=== PATIENT | female | born 1950 | race Caucasian/White ===

== ENCOUNTER → 2017-01-24 | Outpatient (CLI) | payer MEDICARE, BC ==
[~2017-01-24] MED LIST: ALPR.25T; ALPR0.5T3 PO; AMLO5TAB2 PO; ASEN5TAB7 SL; ASP81TEC PO; CETI-176 PO; CETI10TA17; CLC500CT PO; DESV50TA PO; DIVA-20 PO; DIVA250T2 PO; DVL500TSR; ERGO400C PO; ESTR0.3T PO; FLUT50DI; FOLI1TAB6 PO; GFN600TCR PO; GLUC1TAB60; LAMO150T3 PO; LEVO5TAB2; METO25TA PO; MTP25TSR; OMG1KC; OMG1KC PO; PRED5DRO2I OP
--- NOTE | 2017-01-24 14:57 | Diagnostic Imaging Report ---
INDICATION: Followup stage III chronic kidney disease, history of partial left nephrectomy for benign mass. COMPARISON: 08/13/2013. DISCUSSION: The kidneys are echogenic, consistent with chronic medical renal disease, stable. A 9 mm cyst noted within the left kidney, benign. No suspicious renal mass identified. The left kidney is small in size measuring 7.7 cm, consistent with previous partial nephrectomy. The right kidney is normal in size measuring 9.7 cm. No hydronephrosis or shadowing stone identified. The urinary bladder appears within normal limits. The bilateral ureteral jets were visualized. IMPRESSION: 1. Echogenic kidneys. Dictated by: Dictated on workstation # [id number]
== END ==
LOC: RAD 12:51
PROVIDERS: ATTEND Internal Medicine Nephrology
DX: N18.3 Chronic kidney disease, stage 3 (moderate) (principal)
CPT/HCPCS: 76770

== ENCOUNTER → 2017-10-04 | Outpatient (CLI) | payer MEDICARE, BC | LOC: RAD 13:36 | PROVIDERS: ATTEND Family Medicine | DX: Z12.31 Encounter for screening mammogram for malignant neoplasm of breast (principal) | CPT/HCPCS: 77067 ==

== ENCOUNTER → 2018-10-05 | Outpatient (CLI) | payer MEDICARE, BC ==
--- NOTE | 2018-10-05 18:16 | Diagnostic Imaging Report ---
INDICATION: Routine screening. COMPARISON: Comparison is made with prior mammograms from 10/04/2017 and 09/21/2016. TECHNIQUE: 2D and 3D bilateral screening mammography was performed with computer-aided detection (CAD) system. FINDINGS: Both breasts are heterogeneously dense, limiting the sensitivity of mammography. There are benign calcifications bilaterally. No mass or malignant appearing microcalcifications are seen. The axillae are unremarkable. IMPRESSION: No mammographic features suspicious for malignancy are identified. ACR BI-RADS Category 2: Benign findings. Result letter will be mailed to the patient. Note: At least 10% of breast cancer is not imaged by mammography. Dictated by: Dictated on workstation # [id number]
== END ==
LOC: RAD 13:14
PROVIDERS: ATTEND Nurse Practitioner Family
DX: Z12.31 Encounter for screening mammogram for malignant neoplasm of breast (principal)
CPT/HCPCS: 77067

== ENCOUNTER 2019-07-27 05:39 | Outpatient (CLI) | payer MEDICARE, BC ==
[~2019-07-27] VITALS: Ht 167.6 cm; Wt 68.0 kg
[2019-07-27] MEDS ORDERED: CHOL200059 PO (13:19)
[2019-07-27] MEDS ORDERED: GLUC100016 PO (13:19)
[2019-07-27] MEDS ORDERED: PRED-398 PO (13:19)
[2019-07-27] MEDS ORDERED: FOLI-74 PO (13:19)
[2019-07-27] MEDS ORDERED: ASCO500C17 PO (13:19)
[2019-07-27] MEDS ORDERED: DIVA250T PO (13:19)
[2019-07-27] MEDS ORDERED: ROSU10TA22 PO (13:19)
[2019-07-27] MEDS ORDERED: UBID100C17 PO (13:19)
[2019-07-27] MEDS ORDERED: LACT1CAP72 PO (13:19)
[2019-07-27] MEDS ORDERED: PRED2TAB PO (13:19)
[2019-07-27] MEDS ORDERED: METO-387 PO (13:19)
[2019-07-27] MEDS ORDERED: FEXO180T84 PO (13:19)
[2019-07-27] MEDS ORDERED: CYCL5TAB PO (13:19)
== END 2019-07-27 13:20 | disposition home or self-care (01) ==
LOC: PREOP 05:39
PROVIDERS: ATTEND Surgery
DX: Z01.818 Encounter for other preprocedural examination (principal)

== ENCOUNTER → 2019-09-26 | Outpatient (CLI) | payer MEDICARE, BC ==
[~2019-09-26] MED LIST changes: +ASCO500C17 PO; +CHOL200059 PO; +CYCL5TAB PO; +DIVA250T PO; +FEXO180T84 PO; +FOLI-74 PO; +GLUC100016 PO; +LACT1CAP72 PO; +METO-387 PO; +PRED-398 PO; +PRED2TAB PO; +ROSU10TA22 PO; +UBID100C17 PO
--- NOTE | 2019-09-26 18:41 | Diagnostic Imaging Report ---
EXAMINATION: Left knee radiographs, 3 views. COMPARISON: June 13, 2012. HISTORY: 68-year-old female, left knee pain. FINDINGS: The patellar tendon to patellar length ratio measures 1.40 which is within normal limits. There is severe patellofemoral compartmental joint space loss with osteophyte formation. There is no large left knee joint effusion. There is degenerative type and discopathy at the distal quadriceps tendon attachment. There is mild medial compartment joint space loss. There is no identified acute fracture. IMPRESSION: Severe predominantly patellofemoral compartment osteoarthritis without knee joint effusion. Dictated by: Dictated on workstation # [id number]
== END ==
LOC: RAD 14:43
PROVIDERS: ATTEND Internal Medicine Rheumatology
DX: M17.0 Bilateral primary osteoarthritis of knee (principal)
CPT/HCPCS: 73562

== ENCOUNTER → 2019-10-09 | Outpatient (CLI) | payer MEDICARE, BC ==
--- NOTE | 2019-10-09 14:26 | Diagnostic Imaging Report ---
INDICATION: Routine screening. COMPARISON: Comparison is made with prior mammograms from 10/05/2018 and 10/04/2017. TECHNIQUE: 2-D and 3-D bilateral screening mammography was performed. The current study was also evaluated with a Computer Aided Detection (CAD) system. 3-D tomosynthesis was also performed and reviewed. FINDINGS: Both breasts are heterogeneously dense, limiting the sensitivity of mammography. Benign calcifications are identified bilaterally. No mass or malignant-appearing microcalcifications are seen. Axillae are unremarkable. IMPRESSION: No mammographic features suspicious for malignancy are identified. ACR BI-RADS Category 2: Benign findings. Result letter will be mailed to the patient. Note: At least 10% of breast cancer is not imaged by mammography. Dictated by: Dictated on workstation # [id number]
== END ==
LOC: RAD 12:46
PROVIDERS: ATTEND Nurse Practitioner Family
DX: Z12.31 Encounter for screening mammogram for malignant neoplasm of breast (principal)
CPT/HCPCS: 77067

== ENCOUNTER 2019-12-25 05:51 | Outpatient (CLI) | payer MEDICARE, BC ==
[~2019-12-25] VITALS: Ht 167 cm; Wt 69.0 kg
[~2019-12-25 05:51] MED LIST changes: -METO-387 PO; +MTP25TSR PO
[2019-12-25] MEDS ORDERED: METO-333 PO (15:13)
[2019-12-25] MEDS ORDERED: PRD1T PO (15:13)
[2019-12-25] MEDS ORDERED: [UNRECOGNIZED DRUG - CODE] PO (15:13)
== END 2019-12-25 15:18 | disposition home or self-care (01) ==
LOC: PREOP 05:51
PROVIDERS: ATTEND Specialist
DX: Z01.818 Encounter for other preprocedural examination (principal)

== ENCOUNTER 2019-12-28 09:58 | Day surgery (SDC) | payer MEDICARE, BC ==
[~2019-12-28] VITALS: Ht 167 cm; Wt 69.0 kg
[~2019-12-28 09:58] MED LIST changes: +METO-333 PO; +PRD1T PO; +[UNRECOGNIZED DRUG - CODE] PO
[2019-12-28 10:25] VITALS: BP 143/79
[2019-12-28] MEDS: TETRACAINE 0.5% OPHTH SOLN 4 ML BTL (SINGLE DOSE ONLY) OU PRN ×4 (10:27→10:52)
[2019-12-28] MEDS: TROPICAMIDE 1% OPH SOLN (MYDRIACYL) 15 ML BTL OU PRN ×2 (10:35→10:52)
--- NOTE | 2019-12-28 10:43 | Ophthalmologist Pre-Op Note ---
Pre-Operative Progress Note H&P Reviewed The H&P was reviewed, patient examined and no changes noted. Date H&P Reviewed: Dec 28, 2019 Time H&P Reviewed: 10:43 Pre-Op Dx Secondary Cataract, Right Eye ESTEBAN SANTOS MD Dec 28, 2019 10:43
[2019-12-28] MEDS: PHENYLEPHRINE 10% OPHTH (NEO-SYN) 5 ML BTL OU PRN ×2 (10:45→10:52)
[2019-12-28 11:40] VITALS: BP 143/79
--- NOTE | 2019-12-28 11:44 | Ophthalmology Operative Report ---
YAG Capsulotomy PREOPERATIVE DIAGNOSIS: Secondary Cataract Right Eye POSTOPERATIVE DIAGNOSIS: Secondary Cataract Right Eye PROCEDURE: YAG Capsulotomy, right eye SURGEON: Colby Santos ANESTHESIA: Topical anesthesia COMPLICATIONS: None ESTIMATED BLOOD LOSS: Minimal DESCRIPTION OF PROCEDURE: After proper informed consent was obtained, the patient's, a 69 female, right eye received one drop of Tropicamide and one drop of Tetracaine. The patient was then placed at the YAG laser and using a power of [ 4.2] millijoules and [ 29] bursts were used to fashion a central capsulotomy. The patient tolerated the procedure well without complications. COLBY SANTOS MD Dec 28, 2019 11:44
== END 2019-12-28 11:40 | disposition home or self-care (01) ==
LOC: SDC 09:58
PROVIDERS: ATTEND Specialist
DX: H26.491 Other secondary cataract, right eye (principal); M19.90 Unspecified osteoarthritis, unspecified site; F31.9 Bipolar disorder, unspecified; E78.00 Pure hypercholesterolemia, unspecified; Z90.710 Acquired absence of both cervix and uterus; Z80.1 Family history of malignant neoplasm of trachea, bronchus and lung

== ENCOUNTER → 2020-10-31 | Outpatient (CLI) | payer MEDICARE, BC ==
--- NOTE | 2020-10-31 16:30 | Diagnostic Imaging Report ---
INDICATION: Routine screening. COMPARISON is made with prior mammograms from 10/09/2019 and 10/05/2018. 2-D and 3-D bilateral screening mammography was performed with CAD. Both breasts are heterogeneously dense, limiting the sensitivity of mammography. There are benign calcifications bilaterally. Benign nodule in the axillary tail on the left appears stable. No new mass or malignant appearing microcalcifications are seen. Axillae are unremarkable. IMPRESSION: BI-RADS Category 2 No mammographic features suspicious for malignancy are identified. ACR BI-RADS Category 2: Benign findings. Result letter will be mailed to the patient. Note: At least 10% of breast cancer is not imaged by mammography. Dictated by: Dictated on workstation # [id number]
== END ==
LOC: RAD 14:59
PROVIDERS: ATTEND Nurse Practitioner Family
DX: Z12.31 Encounter for screening mammogram for malignant neoplasm of breast (principal)
CPT/HCPCS: 77063; 77067

== ENCOUNTER → 2021-03-23 | Outpatient (CLI) | payer MEDICARE, BC ==
--- NOTE | 2021-03-23 19:35 | Diagnostic Imaging Report ---
INDICATION: Left leg pain and swelling post injury AP and lateral views of the left tibia and fibula are performed. No fracture or acute bony abnormality seen. IMPRESSION: Negative left tibia and fibula. Dictated by: Dictated on workstation # [id number]
--- NOTE | 2021-03-23 19:36 | Diagnostic Imaging Report ---
INDICATION: Left foot pain and swelling AP, oblique, and lateral views of the left foot are obtained. No fracture or acute bony abnormality seen. There is plantar and posterior calcaneal spurring. Joint spaces appear unremarkable. IMPRESSION: No acute abnormality of the left foot. Dictated by: Dictated on workstation # [id number]
== END ==
LOC: RAD 16:32
PROVIDERS: ATTEND Surgery
DX: M79.672 Pain in left foot (principal); M79.89 Other specified soft tissue disorders; Z87.828 Personal history of other (healed) physical injury and trauma; Z91.81 History of falling
CPT/HCPCS: 73590; 73630

== ENCOUNTER → 2021-04-28 | Outpatient (CLI) | payer MEDICARE, BC ==
--- NOTE | 2021-04-28 17:56 | Diagnostic Imaging Report ---
CLINICAL INDICATION: Patient with history of tremors. EXAM: MRI of the brain performed without IV contrast. Sequences include axial DWI, ADC map, axial T2, axial FLAIR, axial T1, axial gradient echo, and sagittal T1. COMPARISON: Head CT without contrast dated 04/19/2012. FINDINGS: There is no evidence of acute cerebral infarct, intracranial hemorrhage, or gross mass effect. There is progression of diffuse brain parenchymal volume loss with the frontal and parietal regions affected the most. Stable small chronic infarcts involving the right cerebellum and left occipital lobe. There is interval development of small infarct changes involving the right frontal lobe periventricular region laterally and high posterior left frontal lobe. There is interval progression of focal, patchy, and confluent areas of high T2 signal white matter changes involving both cerebral hemispheres and debra, likely representing chronic small vessel ischemic disease. There is normal clemens-white matter distinction. There is no significant midline shift or herniation. The sit[place] of [place] vascular structures show no gross abnormality as visualized. The pituitary gland, sella, and suprasellar regions are unremarkable as visualized. There is no evidence of hydrocephalus. The basal cisterns are unremarkable. The skull, extracranial soft tissue, and orbits are unremarkable. The paranasal sinuses are unremarkable. Temporal bones show no significant abnormality. IMPRESSION: 1: There is no evidence of acute intracranial process. 2: Interval progression of small chronic infarct changes and chronic ischemic disease and leukoaraiosis. 3: Stable small chronic infarcts involving the right cerebellum and left occipital lobe. Dictated by: Dictated on workstation # [id number]
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
== END ==
LOC: RAD 13:27
PROVIDERS: ATTEND Family Medicine
DX: I63.431 Cerebral infarction due to embolism of right posterior cerebral artery (principal); M50.30 Other cervical disc degeneration, unspecified cervical region; I63.532 Cerebral infarction due to unspecified occlusion or stenosis of left posterior cerebral artery
CPT/HCPCS: 70551; 72141

== ENCOUNTER → 2021-05-18 | Outpatient (CLI) | payer MEDICARE, BC ==
--- NOTE | 2021-05-18 14:08 | Diagnostic Imaging Report ---
PROCEDURE: US carotid duplex, bilateral. TECHNIQUE: Multiple real-time grayscale images were obtained over the carotid arteries in various projections, bilaterally. Additional spectral analysis and color Doppler duplex images were also obtained. INDICATION: Cerebellar infarct. FINDINGS: There is mild atherosclerotic plaquing within the carotid bulbs bilaterally. Color Doppler imaging shows antegrade flow through both carotid arteries and the vertebral arteries. Waveforms and peak velocities are symmetrical and normal. Carotid ratios are normal. IMPRESSION: Mild atherosclerotic changes with no hemodynamic disease. The vertebral arteries are symmetrical and antegrade. Parameters based on the consensus panel Weinstein-Scale and Doppler ultrasound criteria published September 2003, Radiology, Volume 229. DOPPLER (peak systolic velocity M/S Right Left CCA .60 .80 ICA Proximal .47 .80 ICA Mid .60 .42 ICA Distal .70 .55 RATIO 1.2 1.0 ECA .92 .59 VERT .46 .54 Dictated by: Dictated on workstation # [id number]
== END ==
LOC: RAD 09:25
PROVIDERS: ATTEND Nurse Practitioner Family
DX: I65.23 Occlusion and stenosis of bilateral carotid arteries (principal); I63.9 Cerebral infarction, unspecified; E78.5 Hyperlipidemia, unspecified
CPT/HCPCS: 93880

== ENCOUNTER 2021-06-14 22:06 | Observation (INO) | payer MEDICARE, BC ==
[~2021-06-14] VITALS: Ht 162.6 cm; Wt 70.4 kg
[2021-06-14] MEDS ORDERED: NITROGLYCERIN 2% OINT 1 GM UNIT DOSE PACKET TOP STA (22:15)
[2021-06-14 22:22] LABS: BASOPHILS % (AUTO) 0 % (0-10); EOSINOPHILS % (AUTO) 0 % (0-10); HEMATOCRIT 41 % (35-52); HEMOGLOBIN 13.5 g/dL (11.5-16.0); LYMPHOCYTES # (AUTO) 2.7 10^3/uL (1.0-4.0); LYMPHOCYTES % (AUTO) 21 % (12-44); MEAN CORPUSCULAR HEMOGLOBIN 31 pg (25-34); MEAN CORPUSCULAR HGB CONC 33 g/dL (32-36); MEAN CORPUSCULAR VOLUME 95 fL (80-99); MEAN PLATELET VOLUME 11.3 fL (9.0-12.2); MONOCYTES # (AUTO) 0.8 10^3/uL (0.0-1.0); MONOCYTES % (AUTO) 6 % (0-12); NEUTROPHILS # (AUTO) 9.2 10^3/uL (1.8-7.8); NEUTROPHILS % (AUTO) 71 % (42-75); PLATELET COUNT 204 10^3/uL (130-400); WHITE BLOOD COUNT 12.9 10^3/uL (4.3-11.0)
[2021-06-14 22:34] LABS: ALBUMIN 4.3 GM/DL (3.2-4.5); INR 0.9 (0.8-1.4); POTASSIUM 4.1 MMOL/L (3.6-5.0); PROTHROMBIN TIME PATIENT 12.8 SEC (12.2-14.7)
[2021-06-14 22:36] LABS: CALCIUM 9.4 MG/DL (8.5-10.1)
[2021-06-14 22:39] LABS: BILIRUBIN,TOTAL 0.3 MG/DL (0.1-1.0)
[2021-06-14 22:40] LABS: CREATININE SERUM 1.82 MG/DL (0.60-1.30)
[2021-06-14 22:44] LABS: MAGNESIUM 2.2 MG/DL (1.6-2.4)
[2021-06-14 22:46] LABS: BILIRUBIN,URINE NEGATIVE (NEGATIVE); CLARITY,URINE CLEAR; COLOR,URINE YELLOW; GLUCOSE, URINE (UA) NEGATIVE (NEGATIVE); KETONES,URINE NEGATIVE (NEGATIVE); LEUKOCYTE ESTERASE ,URINE NEGATIVE (NEGATIVE); NITRITE,URINE NEGATIVE (NEGATIVE); PROTEIN,URINE TRACE (NEGATIVE)
[2021-06-14 22:52] LABS: BACTERIA,URINE NEGATIVE /HPF; RBC,URINE 0-2 /HPF; WBC,URINE 0-2 /HPF
[2021-06-14] MEDS ORDERED: meTOprolol SUCCINATE 100 MG (TOPROL XL) TAB PO ONE (23:15)
[2021-06-15] VITALS (14 sets, daily range): BP systolic 150–206; BP diastolic 73–106
[2021-06-15] MEDS ORDERED: hydrALAZINE (APESOLINE) 20 MG/ML VIAL IV ONE (03:30)
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
[2021-06-15] MEDS ORDERED: NS IV 1000 ML 1,000 ML IV SCH (05:15)
--- NOTE | 2021-06-15 05:44 | Diagnostic Imaging Report ---
Clinical indication: Patient with altered mental status and neuro deficit. Patient has history of previous infarcts. Exam: Axial CT scan of the brain without IV contrast with coronal and sagittal reformatted images. Auto Exposure Controls were utilized during the CT exam to meet ALARA standards for radiation dose reduction. Comparison: MRI of the brain without contrast dated 04/28/2021. Findings: There is no evidence of acute cerebral infarct, intracranial hemorrhage, or gross mass effect. There is no significant change to the brain parenchymal volume loss. Again noted small chronic infarcts involving the right basal ganglia region, left occipital lobe, right cerebellar hemisphere, and posterior left frontal lobe. There is patchy and confluent areas of low-attenuation white matter changes throughout both cerebral hemispheres, likely representing chronic small vessel ischemic disease and leukoaraiosis. There is normal clemens-white matter distinction. There is no significant midline shift or herniation. There is no evidence of hydrocephalus. The basal cisterns are unremarkable. The skull, extracranial soft tissue, and orbits are unremarkable. The paranasal sinuses are unremarkable. Temporal bones show no significant abnormality. Impression: Stable CT scan of the brain with no evidence of interval acute intracranial process. I agree with [facility] report Dictated by: Dictated on workstation # [id number]
--- NOTE | 2021-06-15 06:05 | Diagnostic Imaging Report ---
Clinical indication: Patient with chest pain and hypertension. Exam: Portable chest x-ray upright view. Comparisons: Chest x-ray dated 08/25/2009. Findings: There is interval development of mild airspace opacities in left lung base and small left pleural effusion. Remainder of the lungs are clear. There is no pneumothorax. Cardiac silhouette and pulmonary vasculature is within normal limits. There is displaced fractures involving the lateral aspect of the left T3 and T4 ribs which have developed in the interim and are of unknown age. IMPRESSION: 1: There is development of left lung base atelectasis versus infiltrate and small left pleural effusion. 2: There is interval development of fractures involving the lateral aspect of left T3 and T4 ribs of unknown age. Dictated by: Dictated on workstation # [id number]
--- NOTE | 2021-06-15 07:20 | Diagnostic Imaging Report ---
PROCEDURE: CT chest, abdomen, and pelvis without contrast. TECHNIQUE: Multiple contiguous axial images were obtained through the chest, abdomen, and pelvis without the use of intravenous contrast. Auto Exposure Controls were utilized during the CT exam to meet ALARA standards for radiation dose reduction. INDICATION: Chest pain, hypertension COMPARISON: CT abdomen and pelvis from 01/10/2013 FINDINGS: CHEST: No endoluminal nodule within the trachea. No pulmonary mass or consolidation. There are a few sites of bandlike atelectasis within the bilateral lower lobes. No pleural effusion or pneumothorax. Thyroid is normal. No supraclavicular or axillary lymphadenopathy. No mediastinal or hilar lymphadenopathy. No pericardial effusion. Normal caliber thoracic aorta. No features of mediastinal hemorrhage. Assessment for dissection or other acute aortic pathology is limited without IV contrast. No concerning focal osseous lesions. ABDOMEN AND PELVIS: No free intraperitoneal air or fluid. Assessment of abdominal viscera is suboptimal without IV contrast. Allowing for this, the unenhanced liver, gallbladder, spleen and pancreas are normal. No adrenal mass. Postoperative changes of partial nephrectomy on the left. No solid renal mass on either side by noncontrast imaging. No renal or ureteral stones. Urinary bladder is decompressed by Freeman catheter and therefore limited in assessment. Status post hysterectomy. No adnexal mass. Stomach is decompressed, limiting assessment. No definite loops of bowel indicate bowel obstruction. No pericolonic inflammatory change. Sigmoid colon diverticulosis. Appendix is normal. No abdominal or pelvic lymphadenopathy. No retroperitoneal hematoma. Small fat-containing umbilical hernia. No concerning focal osseous lesions. IMPRESSION: 1. No acute abnormality in the chest, abdomen or pelvis. 2. Findings are in agreement with the preliminary report. Dictated by: Dictated on workstation # [id number]
[2021-06-15] MEDS ORDERED: CATHETER FLUSH 10 ML SYR IV PRN (07:30)
[2021-06-15] MEDS ORDERED: NITROGLYCERIN 0.4 MG SL TABS BTL 25'S SL PRN (07:30)
[2021-06-15] MEDS ORDERED: ONDANSETRON 4 MG/2 ML (SDV) Z0FRAN IVP PRN (07:30)
[2021-06-15] MEDS ORDERED: morphine INJ 4 MG/ML 1 ML (VIAL/SYRINGE) IV PRN (07:30)
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
[2021-06-15] MEDS: NS IV 1000 ML 1,000 ML IV SCH (09:23)
--- NOTE | 2021-06-15 10:37 | Consultation-Cardiology ---
HPI-Cardiology Cardiology Consultation: Date of Consultation 06/15/2021 Date of Admission 06/15/2021 Attending Physician Ryan Hermosillo MD Admitting Physician Silke Womack MD Consulting Physician NIXON TAVAREZ JR, MD HPI: Time Seen by a Provider: 08:50 Chief Complaint: Reason for consultation: Chest pain. I had the pleasure of seeing Masha on the medical/surgical unit this morning. She has a history of hypertension, hyperlipidemia, previous cerebral infarcts noted on an MRI of the brain, stage III chronic kidney disease, polymyalgia rheumatica, and bipolar disorder among a few other less clinically significant issues. She has been having chest discomfort for at least the past several months. She cannot recall exactly when this started. She states that she will get a tightness in the left side of her chest. This will last anywhere from seconds up to minutes. Sometimes this will occur at night when she is going to sleep. She will fall asleep with chest discomfort and by the following morning, the discomfort will resolve. She denies any radiation or associated complaints. Nothing seems to bring this on. Nothing seems to make this better or worse. She had spoken to her primary care provider about the chest discomfort and was actually referred for an outpatient cardiology consultation. However, this morning the chest discomfort was more bothersome to the patient so she came to the emergency room for further evaluation. I was subsequently consulted for cardiology evaluation. She denies dyspnea on exertion, paroxysmal nocturnal dyspnea, orthopnea, or palpitations. She gets occasional lightheaded spells but denies any syncope. She had been getting some lower extremity edema but modified her diet and the edema resolved. She states she had been given Plavix earlier in the year but took this for less than a month because it caused more problems with her superficial ecchymoses. She does not smoke. Review of Systems-Cardiology Review of Systems Other comments Review of 10 organ systems is as per the history of present illness, otherwise negative. [id number]-[id number]-Omdsfm Hx Patient Social History Marrital Status: Smoking Status: Never a Smoker Have you traveled recently?: No Alcohol Use?: No Pt feels they are or have been: No Past Medical History PMH As described under Assessment. Family Medical History Family Medical History: The patient does not know of any family history of premature coronary artery disease. Allergies and Home Medications Allergies Coded Allergies: lorazepam (Verified Allergy, Mild, 12/25/19) cephalexin (Verified Allergy, Unknown, 12/25/19) sulfamethoxazole (Verified Allergy, Unknown, Rash, 12/25/19) trimethoprim (Verified Allergy, Unknown, Rash, 12/25/19) Home Medications Acetaminophen 500 Mg Tablet, 500-1,000 MG PO Q8H PRN for PAIN-MILD (1-4), (Reported) Last Action: Reviewed Ascorbic Acid 500 Mg Tablet, 500 MG PO BID, (Reported) Last Action: Reviewed Brimonidine Tartrate 5 Ml Drops, 1 DROPS OU BID, (Reported) Last Action: Reviewed Cholecalciferol (Vitamin D3) 25 Mcg Capsule, 50 MCG PO BID, (Reported) Last Action: Reviewed Cyclobenzaprine HCl 5 Mg Tablet, 5 MG PO BID PRN for MUSCLE SPASMS, (Reported) Last Action: Reviewed Divalproex Sodium 250 Mg Tab.er.24h, 750 MG PO HS, (Reported) TAKES 3 (250MG) TABS Last Action: Reviewed Fexofenadine HCl 180 Mg Tablet, 180 MG PO HS, (Reported) Last Action: Reviewed Glucos Sul 2Kcl/MSM/Chond/C/Mn 1 Each Capsule, 1 EACH PO BID, (Reported) Last Action: Reviewed Lactobacillus Acidophilus 1 Each Capsule, 1 EACH PO BID, (Reported) Last Action: Reviewed Metoprolol Tartrate 25 Mg Tablet, 50 MG PO BID, (Reported) TAKES 2 (25MG) TABS Last Action: Reviewed Mupirocin 22 Gm Oint...g., 1 APPLIC TP BID, (Reported) Last Action: Reviewed Mv-Mn/Folic Acid/Calcium/Vit K 1 Each Tablet, 1 EACH PO DAILY, (Reported) Last Action: Reviewed Prednisone 1 Mg Tab, 3 MG PO 1800, (Reported) TAKES 3 (1MG) TABS Last Action: Reviewed Rosuvastatin Calcium 10 Mg Tablet, 10 MG PO HS, (Reported) Last Action: Reviewed Patient Home Medication List Home Medication List Reviewed: Yes Exam Vital Signs Vital Signs Date Time Temp Pulse Resp B/P (MAP) Pulse Ox O2 Delivery O2 Flow Rate FiO2 06/15/21 09:51 97 Room Air 06/15/21 06:49 37.0 98 18 157/77 (152) Physical Exam General: Alert. No acute distress. Well nourished and appears stated age. Eye: Extraocular movements are intact. Conjunctivae are clear. There are no xanthelasma. HENT: Normocephalic. Atraumatic. Carotid pulsations 2/2 without bruits. Neck: Jugular venous pressure does not appear elevated. No thyromegaly appreciated. Respiratory: Lungs are clear to auscultation. Respirations are non-labored. Breath sounds are equal. Symmetrical chest wall expansion. Cardiovascular: Normal rate. Regular rhythm. No murmur. No gallop. Point of maximal impulse is not appear displaced. Good pulses equal in all extremities. No edema. Gastrointestinal: Soft. Normal bowel sounds. Skin: Skin turgor is normal. There is no pallor. She has diffuse ecchymoses on her upper and lower extremities bilaterally. Her skin appears very thin. Musculoskeletal: No kyphosis or scoliosis appreciated. Neurologic: Alert and oriented to person, place, time. Cranial nerves 3-12 appear grossly intact. The patient has good motor tone strength in the upper and lower extremities bilaterally. Psychiatric: Cooperative. Appropriate mood & affect. Labs Laboratory Tests Test 06/14/21 22:15 06/14/21 22:40 06/15/21 05:05 06/15/21 08:10 Range/Units White Blood Count 12.9 H 4.3-11.0 10^3/uL Red Blood Count 4.35 3.80-5.11 10^6/uL Hemoglobin 13.5 11.5-16.0 g/dL Hematocrit 41 35-52 % Mean Corpuscular Volume 95 80-99 fL Mean Corpuscular Hemoglobin 31 25-34 pg Mean Corpuscular Hemoglobin Concent 33 32-36 g/dL Red Cell Distribution Width 14.3 10.0-14.5 % Platelet Count 204 130-400 10^3/uL Mean Platelet Volume 11.3 9.0-12.2 fL Immature Granulocyte % (Auto) 1 % Neutrophils (%) (Auto) 71 42-75 % Lymphocytes (%) (Auto) 21 12-44 % Monocytes (%) (Auto) 6 0-12 % Eosinophils (%) (Auto) 0 0-10 % Basophils (%) (Auto) 0 0-10 % Neutrophils # (Auto) 9.2 H 1.8-7.8 10^3/uL Lymphocytes # (Auto) 2.7 1.0-4.0 10^3/uL Monocytes # (Auto) 0.8 0.0-1.0 10^3/uL Eosinophils # (Auto) 0.0 0.0-0.3 10^3/uL Basophils # (Auto) 0.0 0.0-0.1 10^3/uL Immature Granulocyte # (Auto) 0.1 0.0-0.1 10^3/uL Prothrombin Time 12.8 12.2-14.7 SEC INR Comment 0.9 0.8-1.4 Activated Partial Thromboplast Time 27 24-35 SEC Sodium Level 144 135-145 MMOL/L Potassium Level 4.1 3.6-5.0 MMOL/L Chloride Level 109 H 98-107 MMOL/L Carbon Dioxide Level 18 L 21-32 MMOL/L Anion Gap 17 H 5-14 MMOL/L Blood Urea Nitrogen 62 H 7-18 MG/DL Creatinine 1.82 H 0.60-1.30 MG/DL Estimat Glomerular Filtration Rate 27 BUN/Creatinine Ratio 34 Glucose Level 139 H 70-105 MG/DL Calcium Level 9.4 8.5-10.1 MG/DL Corrected Calcium 9.2 8.5-10.1 MG/DL Magnesium Level 2.2 1.6-2.4 MG/DL Total Bilirubin 0.3 0.1-1.0 MG/DL Aspartate Amino Transf (AST/SGOT) 34 5-34 U/L Alanine Aminotransferase (ALT/SGPT) 29 0-55 U/L Alkaline Phosphatase 52 40-136 U/L Total Creatine Kinase 70 29-168 U/L Creatine Kinase MB 6.0 <6.6 NG/ML Myoglobin 91.7 10.0-92.0 NG/ML Troponin I 0.030 H 0.080 H 0.075 H <0.028 NG/ML B-Type Natriuretic Peptide 219.6 H <100.0 PG/ML Total Protein 7.0 6.4-8.2 GM/DL Albumin 4.3 3.2-4.5 GM/DL Amylase Level 92 25-125 U/L Lipase 50 8-78 U/L TSH [place] Testing 2.00 0.35-4.94 UIU/ML Valproic Acid (Depakene) Level 45.0 L 50.0-100.0 UG/ML Urine Color YELLOW Urine Clarity CLEAR Urine pH 6.0 5-9 Urine Specific [place] <=1.005 1.016-1.022 Urine Protein TRACE H NEGATIVE Urine Glucose (UA) NEGATIVE NEGATIVE Urine Ketones NEGATIVE NEGATIVE Urine Nitrite NEGATIVE NEGATIVE Urine Bilirubin NEGATIVE NEGATIVE Urine Urobilinogen 0.2 < = 1.0 MG/DL Urine Leukocyte Esterase NEGATIVE NEGATIVE Urine RBC (Auto) NEGATIVE NEGATIVE Urine RBC 0-2 /HPF Urine WBC 0-2 /HPF Urine Squamous Epithelial Cells NONE /HPF Urine Renal Epithelial Cells NONE /HPF Urine Crystals NONE /LPF Urine Bacteria NEGATIVE /HPF Urine Casts NONE /LPF Urine Mucus NEGATIVE /LPF Urine Culture Indicated NO Radiology ECHOCARDIOGRAM (06/15/2021): 1. Normal left ventricular chamber size, wall thickness and systolic function with an estimated ejection fraction of 60-65%. No regional wall motion abnormalities identified. 2. Doppler parameters are consistent with grade 1 diastolic dysfunction. 3. Mild mitral annular calcification. 4. Mild aortic valve sclerosis. 5. The estimated pulmonary artery systolic pressure is 29 mmHg. ECG Impression ECG Comment Initial electrocardiogram from the emergency room showed sinus rhythm with inferolateral ST depression, nonspecific. Follow-up electrocardiogram obtained on the floor showed sinus rhythm with resolution of the ST changes. Diagnosis/Problems Diagnosis/Problems (1) Chest pain Assessment & Plan: Exact etiology is unclear. She has nonspecific findings on her electrocardiogram but she does have an elevated troponin level. I suspect this could be a type II non-ST elevation myocardial infarction related to her hypertensive urgency coupled with acute kidney injury on chronic kidney disease. Unfortunately, she states that she cannot take aspirin or clopidogrel. Furthermore, because of her chronic kidney disease, she is not willing to undergo any testing that would require intravascular contrast. As such, I recommend she continue on medical therapy with beta-arnulfo and statin medication. Due to the hypertensive urgency, I will double her dose of beta- arnulfo. If she continues to have chest discomfort, we may want to consider adding another antianginal medication. (2) Troponin level elevated Assessment & Plan: As above, this could be a type II non-ST elevation myocardial infarction related to the hypertensive urgency. Unfortunately, due to her comorbid conditions and medication intolerances, she is not a good irineo date for an invasive evaluation. (3) Hypertensive urgency Assessment & Plan: As above, I will double her dose of metoprolol. If her blood pressures remain elevated, we may need to add an additional antihypertens dana medication. (4) Mixed hyperlipidemia Assessment & Plan: Continue statin medication. A lipid panel has been ordered. (5) Acute kidney injury superimposed on chronic kidney disease Assessment & Plan: As above, this probably also caused some degree of elevation of the troponin level. (6) Stage III chronic kidney disease Assessment & Plan: She follows with nephrology as an outpatient for management of this condition. NIXON TAVAREZ JR, MD Jun 15, 2021 10:37
[2021-06-15] MEDS ORDERED: ACET-2267 PO (10:45)
[2021-06-15] MEDS ORDERED: MV-M1TAB57 PO (10:45)
[2021-06-15] MEDS ORDERED: CHOL100048 PO (10:45)
[2021-06-15] MEDS ORDERED: ASCO500T17 PO (10:45)
[2021-06-15] MEDS ORDERED: GLUC-235 PO (10:45)
[2021-06-15] MEDS ORDERED: BRIM5DRO12 OU (10:45)
[2021-06-15] MEDS ORDERED: ROSU10TA22 PO (10:45)
[2021-06-15] MEDS ORDERED: DIVA250T12 PO (10:45)
[2021-06-15] MEDS ORDERED: LACT1CAP62 PO (10:45)
[2021-06-15] MEDS ORDERED: FEXO180T84 PO (10:45)
[2021-06-15] MEDS ORDERED: MUPI22OI2 TP (10:45)
[2021-06-15] MEDS ORDERED: CYCL5TAB PO (10:47)
[2021-06-15] MEDS ORDERED: METO-333 PO (10:47)
[2021-06-15] MEDS: CATHETER FLUSH 10 ML SYR IV SCH ×2 (14:24→23:06)
[2021-06-15] MEDS ORDERED: DIAZEPAM 2 MG (VALIUM) TAB PO PRN (20:30)
[2021-06-15] MEDS: meTOprolol TARTRATE 50 MG (LOPRESSOR) TAB PO SCH (20:32)
[2021-06-16] MEDS: NS IV 1000 ML 1,000 ML IV SCH (01:35)
[2021-06-16 05:00] VITALS: BP 178/78
[2021-06-16] MEDS: CATHETER FLUSH 10 ML SYR IV SCH (05:27)
[2021-06-16 06:06] LABS: BASOPHILS % (AUTO) 0 % (0-10); EOSINOPHILS # (AUTO) 0.1 10^3/uL (0.0-0.3); EOSINOPHILS % (AUTO) 1 % (0-10); HEMATOCRIT 38 % (35-52); LYMPHOCYTES # (AUTO) 2.4 10^3/uL (1.0-4.0); LYMPHOCYTES % (AUTO) 26 % (12-44); MEAN CORPUSCULAR HEMOGLOBIN 31 pg (25-34); MEAN CORPUSCULAR HGB CONC 32 g/dL (32-36); MEAN CORPUSCULAR VOLUME 97 fL (80-99); MEAN PLATELET VOLUME 11.5 fL (9.0-12.2); MONOCYTES % (AUTO) 11 % (0-12); NEUTROPHILS # (AUTO) 5.8 10^3/uL (1.8-7.8); NEUTROPHILS % (AUTO) 62 % (42-75); PLATELET COUNT 166 10^3/uL (130-400); WHITE BLOOD COUNT 9.4 10^3/uL (4.3-11.0)
[2021-06-16 06:20] LABS: TRIGLYCERIDES 181 MG/DL (<150); VLDL CHOLESTEROL 36 MG/DL (5-40)
[2021-06-16 06:25] LABS: CHOLESTEROL 164 MG/DL (< 200); HDL CHOLESTEROL 43 MG/DL (40-60)
[2021-06-16 07:58] VITALS: BP 162/81
--- NOTE | 2021-06-16 08:18 | Cardiology Progress Note ---
Progress Note-Cardiology Events since last exam Date Seen by Provider: Jun 16, 2021 Time Seen by Provider: 08:14 Events since last exam We are seeing her due to probable non-ST elevation myocardial infarction. She had just a twinge of chest pain this morning. She denies any recurrent falls. She is not exactly sure what happened in the parking lot the day she was admitted. Also can remember is ending up on the ground. She is not quite sure if she had syncope. She denies dyspnea, palpitations or ankle edema. Vitals Last set of Vitals Signs Vital Signs 06/16/21 07:58 Temp 36.6 Pulse 109 Resp 18 B/P (MAP) 162/81 (108) Pulse Ox 93 O2 Delivery Room Air Labs Labs Laboratory Tests 06/16/21 05:55 Exam Vital Signs Vital Signs Date Time Temp Pulse Resp B/P (MAP) Pulse Ox O2 Delivery O2 Flow Rate FiO2 06/16/21 07:58 36.6 109 18 162/81 (108) 93 Room Air Physical Exam General: Alert. No acute distress. Eye: No xanthelasma. HENT: Normocephalic. Neck: Jugular venous pressure does not appear elevated. Respiratory: Lungs are clear to auscultation. Respirations are non-labored. Breath sounds are equal. Symmetrical chest wall expansion. Cardiovascular: Normal rate. Regular rhythm. No murmur. No gallop. No edema. Gastrointestinal: Soft. Normal bowel sounds. Skin: Warm. Dry. Neurologic: Alert and oriented to person, place, time. Cranial nerves 3-11 grossly intact. Psychiatric: Cooperative. Appropriate mood & affect. Labs Laboratory Tests Test 06/16/21 05:55 Range/Units White Blood Count 9.4 4.3-11.0 10^3/uL Red Blood Count 3.86 3.80-5.11 10^6/uL Hemoglobin 12.0 11.5-16.0 g/dL Hematocrit 38 35-52 % Mean Corpuscular Volume 97 80-99 fL Mean Corpuscular Hemoglobin 31 25-34 pg Mean Corpuscular Hemoglobin Concent 32 32-36 g/dL Red Cell Distribution Width 14.7 H 10.0-14.5 % Platelet Count 166 130-400 10^3/uL Mean Platelet Volume 11.5 9.0-12.2 fL Immature Granulocyte % (Auto) 1 % Neutrophils (%) (Auto) 62 42-75 % Lymphocytes (%) (Auto) 26 12-44 % Monocytes (%) (Auto) 11 0-12 % Eosinophils (%) (Auto) 1 0-10 % Basophils (%) (Auto) 0 0-10 % Neutrophils # (Auto) 5.8 1.8-7.8 10^3/uL Lymphocytes # (Auto) 2.4 1.0-4.0 10^3/uL Monocytes # (Auto) 1.0 0.0-1.0 10^3/uL Eosinophils # (Auto) 0.1 0.0-0.3 10^3/uL Basophils # (Auto) 0.0 0.0-0.1 10^3/uL Immature Granulocyte # (Auto) 0.1 0.0-0.1 10^3/uL Triglycerides Level 181 H <150 MG/DL Cholesterol Level 164 < 200 MG/DL LDL Cholesterol Direct 81 1-129 MG/DL VLDL Cholesterol 36 5-40 MG/DL HDL Cholesterol 43 40-60 MG/DL Diagnosis/Problems Diagnosis/Problems (1) Chest pain Assessment & Plan: Exact etiology is unclear. Her chest discomfort has essenti ally resolved. I suspect this Is a probable type II non-ST elevation myocardial infarction related to her hypertensive urgency coupled with acute kidney injury on chronic kidney disease. Unfortunately, she states that she cannot take aspirin or clopidogrel. Furthermore, because of her chronic kidney disease, she is not willing to undergo any testing that would require intravascular contrast. As such, I recommend she continue on medical therapy with beta-arnulfo and statin medication. (2) Troponin level elevated Assessment & Plan: As above, I suspect she had a type II non-ST elevation myocardial infarction related to the hypertensive urgency. Unfortunately, due to her comorbid conditions and medication intolerances, she is not a good candid ate for an invasive evaluation as outlined above. (3) Syncope Assessment & Plan: She is not entirely clear if she actually passed out or just fell down in the parking lot. Given her issues with skin breakdown, I would suggest monitoring her symptomatically after discharge. If she has recurrent falls or carly syncope, then we may need to consider an implantable loop recorder versus an external automatic oven operator. I am somewhat concerned with her skin breakdown that both of these procedures could cause issues with her skin. (4) Hypertensive urgency Assessment & Plan: Her blood pressures are still elevated despite doubling the dose of metoprolol. I will add nifedipine. Nifedipine seems to have less of an issue with lower extremity edema than amlodipine. She is not a good candidate for GAURAV inhibitor or ARB due to her chronic kidney disease. (5) Mixed hyperlipidemia Assessment & Plan: Continue statin medication. Her LDL level looks acceptable on the current medication and diet. (6) Acute kidney injury superimposed on chronic kidney disease Assessment & Plan: As above, this probably also caused some degree of elevation of the troponin level. I have added a follow-up basic metabolic panel to this morning's labs. (7) Stage III chronic kidney disease Assessment & Plan: She follows with nephrology as an outpatient for management of this condition. NIXON TAVAREZ JR, MD Jun 16, 2021 08:18
[2021-06-16 08:23] LABS: CALCIUM 8.4 MG/DL (8.5-10.1); CREATININE SERUM 1.3 MG/DL (0.60-1.30); POTASSIUM 3.7 MMOL/L (3.6-5.0)
[2021-06-16] MEDS: meTOprolol TARTRATE 50 MG (LOPRESSOR) TAB PO SCH (08:26)
[2021-06-16] MEDS ORDERED: NIFEdipine ER 30 MG (PROCARDIA XL) TAB PO SCH (09:00)
[2021-06-16] MEDS ORDERED: HYDR-3922 PO (10:53)
[2021-06-16] MEDS ORDERED: METO100T12 PO (10:53)
[2021-06-16] MEDS ORDERED: NIFE-25 PO (10:53)
--- NOTE | 2021-06-16 10:54 | Discharge Inst-Simple/Standard ---
Discharge Inst-Standard Reconcile Patient Problems Problems Reviewed?: Yes Discharge Medications New, Converted or Re-Newed RX: Transmitted to Pharmacy Patient Instructions/Follow Up Plan of Care/Instructions/FU: 1-[address] bowman Activity as Tolerated: Yes Discharge Diet: Regular Diet Return to The Hospital For: any concern for worsening chest pain, shortness of breath dizzines, or other lifethreatening illness or injury NAM BOWMAN MD Jun 16, 2021 10:54
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
[2021-06-16] MEDS ORDERED: predniSONE 10 MG TAB PO ONE (11:00)
[2021-06-16 11:33] VITALS: BP 129/77
[2021-06-16 12:20] VITALS: BP 129/77
== END 2021-06-16 12:20 | disposition home or self-care (01) ==
LOC: EDUNIT# 22:06 → ER 22:07 → 4TH 06-15 05:45
PROVIDERS: ADMIT Family Medicine; ATTEND Family Medicine
DX: R07.9 Chest pain, unspecified (principal); I95.1 Orthostatic hypotension; F41.9 Anxiety disorder, unspecified; E78.00 Pure hypercholesterolemia, unspecified; I12.9 Hypertensive chronic kidney disease with stage 1 through stage 4 chronic kidney disease, or unspecified chronic kidney disease; E11.22 Type 2 diabetes mellitus with diabetic chronic kidney disease; N17.9 Acute kidney failure, unspecified; N18.30 Chronic kidney disease, stage 3 unspecified; F32.9 Major depressive disorder, single episode, unspecified; E11.36 Type 2 diabetes mellitus with diabetic cataract; E78.2 Mixed hyperlipidemia; I16.0 Hypertensive urgency; Z79.899 Other long term (current) drug therapy
CPT/HCPCS: 36415; 51702; 70450; 71045; 71250; 74176; 80048; 80053; 80061; 80164; 81000; 82150; 82550; 82553; 83690; 83735; 83874; 83880; 84443; 84484; 85025; 85610; 85730; 93005; 93041; 93306; G0378

== ENCOUNTER → 2022-02-09 | Outpatient (CLI) | payer MEDICARE, BC ==
[~2022-02-09] MED LIST changes: +ACET-2267 PO; +ASCO500T17 PO; +BRIM5DRO12 OU; +CHOL100048 PO; +DIVA250T12 PO; +GLUC-235 PO; +HYDR-3922 PO; +LACT1CAP62 PO; +METO100T12 PO; +MUPI22OI2 TP; +MV-M1TAB57 PO; +NIFE-25 PO
--- NOTE | 2022-02-09 12:39 | Diagnostic Imaging Report ---
INDICATION: Routine screening. Comparison is made with prior mammogram from 10/31/2020 and 10/09/2019. 2-D and 3-D bilateral screening mammography was performed with CAD. Both breasts are heterogeneously dense, limiting the sensitivity of mammography. A benign parenchymal and vascular calcifications are noted bilaterally. No dominant mass or malignant-appearing microcalcifications are seen. Axillae are unremarkable. IMPRESSION: No mammographic features suspicious for malignancy are identified. ACR BI-RADS Category 2: Benign findings. Result letter will be mailed to the patient. Note: At least 10% of breast cancer is not imaged by mammography. BI-RADS Category 2 Dictated by: Dictated on workstation # [id number]
--- NOTE | 2022-02-09 16:54 | Diagnostic Imaging Report ---
INDICATION: Postmenopausal female COMPARISON: None FINDINGS: AP Spine L2-L4: [BMD (g/cm2): 1.055] [T-Score: -1.2] [Z-Score: 0.3] [BMD Previous: NA] [BMD % Change: NA] LT Hip Neck: [BMD (g/cm2): 0.639] [T-Score: -2.9] [Z-Score: -1.2] LT Hip Total: [BMD (g/cm2):0.655] [T-Score:-2.8] [Z-Score: -1.3] [BMD Previous: NA] [BMD % Change: NA] RT Hip Neck: [BMD (g/cm2):0.703] [T-Score:-2.4] [Z-Score:-0.7] RT Hip Total: [BMD (g/cm2):0.766] [T-score:-1.9] [Z-Score:-0.5] [BMD Previous:NA] [BMD % Change:NA] *Indicates significant change from prior examination based on 95% confidence level. World Health Organization criteria for BMD interpretation classify patients as Normal (T-score at or above -1.0), Osteopenic (T-score between -1.0 and -2.5) or Osteoporotic (T-score at or below -2.5). LIMITATIONS AND MODIFICATION: None. FRACTURE RISK (FRAX SCORE): The ten year probability of (%): Major Osteoporotic Fracture: [NA] Hip Fracture: NA] IMPRESSION: 1. Osteoporosis. 2. Baseline examination. 3. See below National Osteoporosis Foundation guidelines on when to potentially initiate pharmacologic therapy. Based on the National Osteoporosis Foundation Guidelines, pharmacologic treatment should be initiated in any of the following, unless clinical conditions suggest otherwise: * Any patient with prior fragility fracture of the hip or vertebrae. A spine fracture indicates 5X risk for subsequent spine fracture and 2X risk for subsequent hip fracture. * Osteoporosis (T-score <-2.5). * Postmenopausal women and men age 50 and older with low bone mass/osteopenia (T-score between -1.0 and -2.5) by DXA and 10-year major osteoporotic fracture greater than 20% or a 10-year probability of hip fracture greater than 3%. These fracture risks are supplied above in the FRAX score, if applicable. * Clinician judgement and/or patient preferences may indicate treatment for people with 10-year fracture probabilities above or below these levels. Dictated by: Dictated on workstation # [id number]
== END ==
LOC: RAD 11:00
PROVIDERS: ATTEND Family Medicine
DX: Z12.31 Encounter for screening mammogram for malignant neoplasm of breast (principal); M81.0 Age-related osteoporosis without current pathological fracture; Z78.0 Asymptomatic menopausal state
CPT/HCPCS: 77063; 77067; 77080

== ENCOUNTER 2022-07-24 04:16 | Inpatient (IN) | payer MEDICARE, BC ==
[~2022-07-24] VITALS: Ht 170.6 cm; Wt 71.5 kg
[~2022-07-24 04:16] MED LIST changes: +NF-CRES10T PO; -ROSU10TA22 PO
[2022-07-24] MEDS ORDERED: DIVA-76 PO (04:24)
[2022-07-24] MEDS ORDERED: OMEP40CA6 (04:24)
[2022-07-24] MEDS ORDERED: DOXY100T2 (04:24)
[2022-07-24] MEDS ORDERED: METH2.5T PO (04:24)
[2022-07-24] MEDS ORDERED: PRD20T (04:24)
[2022-07-24] MEDS ORDERED: FERR325T24 PO (04:24)
[2022-07-24] MEDS ORDERED: LACTATED RINGERS 1,000 ML IV ONE (04:30)
--- NOTE | 2022-07-24 04:36 | ED General ---
General Chief Complaint: General Problems/Pain Stated Complaint: CONFUSION,WEAKNESS Nursing Triage Note: BROUGHT IN BY [facility] FOR PROGRESSIVE WEAKNESS/CONFUSION X1 WEEK. 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 APPARENTLY SHE HAD SOME OUTPATIENT TESTS DONE THIS WEEK PT STATES SHE DID NOT SEE ANYONE, JUST HAD TESTS DONE--REPORTEDLY A UA WAS DONE. PT STATES SHE WAS NOT PRESCRIBED ANY MEDICATIONS, BUT ON 07/21/22 SHE WAS PRESCRIBED DOXYCYCLINE SHE WAS ALSO PRESCRIBED PREDNISONE ON 07/20/22--STARTING AT 60 MG / DAY X 3 DAYS, AND THEN TAPER DOWN PT DOES NOT HAVE ANY SPECIFIC COMPLAINTS OTHER THAN WEAKNESS ON DIRECT QUESTIONING ABOUT FEVER, PT STATES SHE THINKS SHE MIGHT HAVE HAD A LITTLE FEVER OFF AND ON, BUT DOES NOT KNOW WHAT HER TEMP WAS THIS WEEK. DENIES ANY NEW OR INCREASED PAIN DENIES HEADACHE DENIES COUGH DENIES CHEST PAIN DENIES SHORTNESS OF BREATH DENIES ANY GI SYMPTOMS DENIES ANY URINARY SYMPTOMS PT HAS HAD COVID-19 VACCINE X 2. ARRIVES LATER, HE STATES THAT URINE TEST WAS THE ONLY TEST SHE HAD DONE THIS WEEK. HE STATES SHE HAS BEEN TAKING THE DOXYCYCLINE ANTIBIOTIC PRESCRIBED. HE VERIFIES THAT SHE DID NOT SEE ANYONE, JUST SENT URINE SPECIMEN IN. HE ALSO STATES THAT SHE TOOK THE 60 MG OF PREDNISONE PRESCRIBED, AND LAST NIGHT THE DOSE DROPPED TO 40 MG, PRESCRIBED. HE ALSO STATES THAT PT WAS STARTED ON METHOTREXATE IN APRIL--TAKES IT EVERY TUESDAY, AND HAD HER DOSE THIS WEEK. HE STATES SHE HAS NOT BEEN ABLE TO STAND FOR THE LAST COUPLE OF DAYS HE ALSO STATES SHE HAS NOT BEEN EATING OR DRINKING VERY MUCH THIS WEEK PCP: DR. GEORGIE Allergies and Home Medications Allergies Coded Allergies: lorazepam (Verified Allergy, Mild, 12/25/19) allopurinol (Verified Allergy, Unknown, 07/24/22) cephalexin (Verified Allergy, Unknown, 12/25/19) clonazepam (Verified Allergy, Unknown, 07/24/22) enalaprilat (Verified Allergy, Unknown, 07/24/22) hydroxychloroquine (Verified Allergy, Unknown, 07/24/22) sulfamethoxazole (Verified Allergy, Unknown, Rash, 12/25/19) trimethoprim (Verified Allergy, Unknown, Rash, 12/25/19) Patient Home Medication List Home Medication List Reviewed: Yes Acetaminophen (Acetaminophen ER) 650 Mg Tablet.er, 650 MG PO Q6H, (Reported) Entered as Reported by: Claudette Winters on 07/24/22802 Last Action: Reviewed Ascorbic Acid (Vitamin C) 1,000 Mg Tablet, 1,000 MG PO DAILY, (Reported) Entered as Reported by: Claudette Winters on 07/24/22806 Last Action: Held Brimonidine Tartrate (Alphagan P) 0.15 % Drops, 2 DROP OP BID, (Reported) Entered as Reported by: Claudette Winters on 07/24/221746 Last Action: New Order Carboxymethylcellulos/Glycerin (Refresh Relieva 0.5-0.9% Drop) 0.5 %-0.9 % Drops, 1 DROP OP DAILY PRN, (Reported) Entered as Reported by: Claudette Winters on 07/24/221746 Last Action: New Order Cetirizine HCl (Cetirizine HCl) 10 Mg Tablet, 10 MG PO DAILY, (Reported) Entered as Reported by: Claudette Winters on 07/24/22 07 Last Action: Held Cholecalciferol (Vitamin D3) (Vitamin D3) 50 Mcg (2000 Unit) Tablet, 50 MCG PO DAILY, (Reported) Entered as Reported by: Claudette Winters on 07/24/22807 Last Action: Held Cyanocobalamin (Vitamin B-12) (Vitamin B-12) 1,000 Mcg Capsule, 1,000 MCG PO DAILY, (Reported) Entered as Reported by: Claudette Winters on 07/24/22806 Last Action: Held Cyclobenzaprine HCl (Cyclobenzaprine HCl) 5 Mg Tablet, 5 MG PO BID PRN for MUSCLE SPASMS, (Reported) Entered as Reported by: SAMIR CARDONA on 06/15/21 1047 Last Action: Held Divalproex Sodium (Divalproex Sodium) 500 Mg Tablet., (Reported) Entered as Reported by: DELONTE PATTEN on 07/24/22423 Last Action: Held Ferrous Sulfate (Ferosul) 325 Mg (65 Mg Iron) Tablet, (Reported) Entered as Reported by: DELONTE PATTEN on 07/24/22423 Last Action: Held Folic Acid (Folic Acid) 1 Mg Tablet, 1 MG PO DAILY, (Reported) Entered as Reported by: Claudette Winters on 07/24/2245 Last Action: Held Gluc Conner/Chondro Conner A/Vit C/Mn (Glucosamine Chondroitin Tab) 750 Mg-600 Mg-55 Mg- 5 Mg Tablet, 1 EACH PO DAILY, (Reported) Entered as Reported by: Claudette Winters on 07/24/2246 Last Action: Held Lactobacillus Rhamnosus GG (Culturelle) 10 Billion Cell Capsule, 2 EACH PO DAILY Prescribed by: Claudette Winters on 07/24/22749 Last Action: Held Methotrexate Sodium (Methotrexate) 2.5 Mg Tablet, (Reported) Entered as Reported by: DELONTE PATTEN on 07/24/22423 Last Action: Held Metoprolol Tartrate (Metoprolol Tartrate) 25 Mg Tablet, 25 MG PO BID, (Reported) Entered as Reported by: Claudette Winters on 07/24/22746 Last Action: Reviewed Mv-Mn/Folic Acid/Calcium/Vit K (Women's 50 Plus Multivit Tab) 1 Each Tablet, 1 EACH PO DAILY, (Reported) Entered as Reported by: SAMIR CARDONA on 06/15/21 1045 Last Action: Held Omeprazole (Omeprazole) 40 Mg Capsule., 40 MG PO BID, (Reported) Entered as Reported by: Claudette Winters on 07/24/22 075 Last Action: Reviewed Prednisone (Prednisone) 5 Mg Tablet, 5 MG PO UD Prescribed by: Claudette Winters on 07/24/22 08 Last Action: Held Ubidecarenone (Coq-10) 100 Mg Capsule, 100 MG PO DAILY, (Reported) Entered as Reported by: Claudette Winters on 07/24/22 0743 Last Action: Held Discontinued Medications Cholecalciferol (Vitamin D3) (Vitamin D3) 25 Mcg Capsule, 50 MCG PO BID, (Reported) Discontinued Reason: No Longer Taking Entered as Reported by: SAMIR CARDONA on 06/15/211044 Last Action: Discontinued Doxycycline Hyclate (Doxycycline Hyclate) 100 Mg Tablet, (Reported) Entered as Reported by: DELONTE PATTEN on 07/24/22423 Last Action: Discontinued Fexofenadine HCl (Mayelin Allergy) 180 Mg Tablet, 180 MG PO HS, (Reported) Discontinued Reason: No Longer Taking Entered as Reported by: SAMIR CARDONA on 06/15/211044 Last Action: Discontinued Hydralazine HCl (Hydralazine HCl) 10 Mg Tablet, 10 MG PO Q4HR PRN for BLOOD PRESSURE Discontinued Reason: No Longer Taking Prescribed by: NAM JACQUES on 06/16/211052 Last Action: Discontinued Metoprolol Tartrate (Metoprolol Tartrate) 100 Mg Tablet, 100 MG PO BID Discontinued Reason: Duplicate Order Prescribed by: NAM JACQUES on 06/16/211052 Last Action: Discontinued Omeprazole (Omeprazole) 40 Mg Capsule., (Reported) Discontinued Reason: Duplicate Order Entered as Reported by: DELONTE PATTEN on 07/24/22423 Last Action: Discontinued Prednisone (Prednisone) 20 Mg Tab, (Reported) Discontinued Reason: No Longer Taking Entered as Reported by: DELONTE PATTEN on 07/24/22423 Last Action: Discontinued Rosuvastatin Calcium (Crestor) 10 Mg Tablet, 10 MG PO HS, (Reported) Discontinued Reason: No Longer Taking Entered as Reported by: SAMIR CARDONA on 06/15/211044 Last Action: Discontinued Review of Systems Review of Systems Constitutional: see HPI, malaise, weakness EENTM: no symptoms reported; No nose congestion, No throat pain Respiratory: no symptoms reported; No cough, No short of breath Cardiovascular: no symptoms reported; No chest pain, No syncope Gastrointestinal: No abdominal pain; diarrhea (HAD DIARRHEA X 1 EARLIER THIS WEEK), loss of appetite; No nausea, No vomiting Genitourinary: no symptoms reported Musculoskeletal: see HPI Skin: no symptoms reported (HAS CHRONIC GENERALIZED BRUISING) Psychiatric/Neurological: See HPI (GENERALIZED WEAKNESS); Denies Headache, Denies Numbness, Denies Paresthesia Hematologic/Lymphatic: Easy Bleeding, Easy Bruising Immunological/Allergic: see HPI Past Agutkwb-Ssyfop-Bheern Hx Patient Social History Tobacco Use?: No Substance use?: No Alcohol Use?: No Pt feels they are or have been: No Immunizations Up To Date First/Initial COVID19 Vaccinat: 2020 Second COVID19 Vaccination Jeff: JANUARY 2021 Seasonal Allergies Seasonal Allergies: Yes Past Medical History Surgery/Hospitalization HX: RIGHT BREAST BIOPSY 2006 RIGHT YAG CAPSULOTOMY 12/2019 COLONOSOCOPIES/POLYPECTOMIES, WITH MOST RECENT COLONOSCOPY 08/01/19 HYSTERECTOMY FOOT SURGERY CATARACT HTN, AX/DEP, BIPOLAR, PMR, HIGH CHOLESTEROL, CHRONIC RENAL INSUFF. Surgeries: Yes (cyst removed from kidney, breast bx x3) Breast, Eye Surgery, Hysterectomy, Renal Respiratory: No Cardiac: Yes (murmur when younger NSTEMI 06/14/21-NO CATH) Coronary Artery Disease, Heart Murmur, High Cholesterol, Hypertension Neurological: No Reproductive Disorders: No Genitourinary: Yes (NO DIALYSIS, CHRONIC RENAL INSUFFICIENCY) Renal Failure Gastrointestinal: Yes Polyps Musculoskeletal: Yes (HAD FX RIBS, BROKEN PELVIS IN 2001, POLYMYALGIA RHEUMATICA;CHRONIC GEN PAIN) Arthritis, Fractures Endocrine: No HEENT: Yes (cataracts removed) Cataract Cancer: No Psychosocial: Yes (PSYCHOSIS-ADMITTED 2011) Anxiety, Bipolar, Depression Integumentary: Yes (EXTENSIVE BRUISING) Blood Disorders: No Family Medical History Heart Disease, Hypertension Physical Exam Vital Signs Vital Signs - First Documented 07/24/22 04:18 Temp 36.9 Pulse 80 Resp 16 B/P (MAP) 111/100 (104) Pulse Ox 96 O2 Delivery Room Air Capillary Refill : Less Than 3 Seconds Height, Weight, BMI Height: 5'6.00" Weight: 150lbs. 0.0oz. [id number]; 26.00 BMI Method:Estimated General Appearance: No Apparent Distress, WD/WN, Other (GENERALIZED WEAKNESS, BUT DOES NOT APPEAR CONFUSED AT THIS TIME. PT IS PLEASANT AND ABLE TO ANSWER BASIC YES/NO QUESTIONS APPROPRIATELY. ) HEENT: PERRL/EOMI, Other (ORAL MUCOSA DRY) Respiratory: Normal Breath Sounds Cardiovascular: Regular Rate, Rhythm Gastrointestinal: Non Tender, Soft Neurologic/Psychiatric: Alert, No Motor/Sensory Deficits, Other (RESTING TREMOR, ESPECIALLY OF ARMS) Skin: Warm/Dry, Ecchymosis (EXTENSIVE BRUISING OF VARIOUS AGES--CHRONIC DUE TO PREDNISONE USE. ) Focused Exam Sepsis Stage: Ruled Out Reason for ruling out sepsis: DOES NOT MEET CRITERIA Possible Source: Unknown Lactate Level 07/24/22 04:30: Lactic Acid Level 1.82 Time of Focused Exam: 05:20 Respiratory: Normal Breath Sounds, No Accessory Muscle Use, No Respiratory Distress Cardiovascular: Regular Rate, Rhythm, No Murmur Skin: normal color, warm/dry Lactic Acid Level Laboratory Tests Test 07/24/22 04:30 Lactic Acid Level 1.82 MMOL/L (0.50-2.00) Within 3hrs of presentation: Admin fluids, Blood cultures prior to ABX's, Focus exam, Lactate level Progress/Results/Core Measures Suspected Sepsis SIRS Temperature: Pulse: 80 Respiratory Rate: 16 Laboratory Tests 07/24/22 04:30: White Blood Count 5.3 Blood Pressure 111 /100 Mean: 104 07/24/22 04:30: Lactic Acid Level 1.82 Laboratory Tests 07/24/22 04:30: Creatinine 2.50H, Platelet Count 195, Total Bilirubin 0.3 Results/Orders Lab Results Laboratory Tests Test 07/24/22 04:30 07/24/22 04:37 Range/Units White Blood Count 5.3 4.3-11.0 10^3/uL Red Blood Count 3.25 L 3.80-5.11 10^6/uL Hemoglobin 11.3 L 11.5-16.0 g/dL Hematocrit 33 L 35-52 % Mean Corpuscular Volume 101 H 80-99 fL Mean Corpuscular Hemoglobin 35 H 25-34 pg Mean Corpuscular Hemoglobin Concent 34 32-36 g/dL Red Cell Distribution Width 15.5 H 10.0-14.5 % Platelet Count 195 130-400 10^3/uL Mean Platelet Volume 10.7 9.0-12.2 fL Immature Granulocyte % (Auto) 1 % Neutrophils (%) (Auto) 80 H 42-75 % Lymphocytes (%) (Auto) 18 12-44 % Monocytes (%) (Auto) 0 0-12 % Eosinophils (%) (Auto) 0 0-10 % Basophils (%) (Auto) 0 0-10 % Neutrophils # (Auto) 4.2 1.8-7.8 10^3/uL Lymphocytes # (Auto) 1.0 1.0-4.0 10^3/uL Monocytes # (Auto) 0.0 0.0-1.0 10^3/uL Eosinophils # (Auto) 0.0 0.0-0.3 10^3/uL Basophils # (Auto) 0.0 0.0-0.1 10^3/uL Immature Granulocyte # (Auto) 0.0 0.0-0.1 10^3/uL Erythrocyte Sedimentation Rate 63 H 0-30 MM/HR Sodium Level 142 135-145 MMOL/L Potassium Level 4.3 3.6-5.0 MMOL/L Chloride Level 108 H 98-107 MMOL/L Carbon Dioxide Level 15 L 21-32 MMOL/L Anion Gap 19 H 5-14 MMOL/L Blood Urea Nitrogen 66 H 7-18 MG/DL Creatinine 2.50 H 0.60-1.30 MG/DL Estimat Glomerular Filtration Rate 20 BUN/Creatinine Ratio 26 Glucose Level 141 H 70-105 MG/DL Lactic Acid Level 1.82 0.50-2.00 MMOL/L Calcium Level 12.5 H 8.5-10.1 MG/DL Corrected Calcium 12.7 H 8.5-10.1 MG/DL Magnesium Level 2.2 1.6-2.4 MG/DL Total Bilirubin 0.3 0.1-1.0 MG/DL Aspartate Amino Transf (AST/SGOT) 20 5-34 U/L Alanine Aminotransferase (ALT/SGPT) 19 0-55 U/L Alkaline Phosphatase 50 40-136 U/L C-Reactive Protein High Sensitivity 4.25 H 0.00-0.50 MG/DL Total Protein 6.6 6.4-8.2 GM/DL Albumin 3.7 3.2-4.5 GM/DL Procalcitonin 0.18 H <0.10 NG/ML TSH [place] Testing 1.62 0.35-4.94 UIU/ML Parathyroid Hormone (Intact) Calcium (PTH Intact) 12.4 *H 8.5-10.5 mg/dL Valproic Acid (Depakene) Level 100.3 *H 50.0-100.0 UG/ML Influenza Type A (RT-PCR) Not Detected Not Detecte Influenza Type B (RT-PCR) Not Detected Not Detecte SARS-CoV-2 RNA (RT-PCR) Not Detected Not Detecte Urine Color YELLOW Urine Clarity CLEAR Urine pH 5.5 5-9 Urine Specific [place] 1.015 L 1.016-1.022 Urine Protein NEGATIVE NEGATIVE Urine Glucose (UA) NEGATIVE NEGATIVE Urine Ketones NEGATIVE NEGATIVE Urine Nitrite NEGATIVE NEGATIVE Urine Bilirubin NEGATIVE NEGATIVE Urine Urobilinogen 0.2 < = 1.0 MG/DL Urine Leukocyte Esterase NEGATIVE NEGATIVE Urine RBC (Auto) NEGATIVE NEGATIVE Urine RBC NONE /HPF Urine WBC NONE /HPF Urine Crystals NONE /LPF Urine Bacteria NEGATIVE /HPF Urine Casts NONE /LPF Urine Mucus NEGATIVE /LPF Urine Culture Indicated NO My Orders Orders - LOC HAMPTON DO Ed Iv/Invasive Line Start (07/24/22 04:24) Monitor-Rhythm Ecg Trace Only (07/24/22 04:24) Straight Cath For Spec.-Adult (07/24/22 04:24) Chest 1 View, Ap/Pa Only (07/24/22 04:24) Cbc With Automated Diff (07/24/22 04:24) Comprehensive Metabolic Panel (07/24/22 04:24) Hs C Reactive Protein (07/24/22 04:24) Lactic Acid Analyzer (07/24/22 04:24) Magnesium (07/24/22 04:24) Procalcitonin (Pct) (07/24/22 04:24) Thyroid Analyzer (07/24/22 04:24) Ua Culture If Indicated (07/24/22 04:24) Valproic Acid (07/24/22 04:24) Blood Culture (07/24/22 04:24) Erythrocyte Sedimentation Rate (07/24/22 04:24) Covid 19 Inhouse Test (07/24/22 04:24) Urine Culture (07/24/22 04:24) Vital Signs Adult Sepsis Patie Q15M (07/24/22 04:24) O2 (07/24/22 04:24) Influenza A And B By Pcr (07/24/22 04:24) Isolation Central Supply Req (07/24/22 04:24) Ed Iv/Invasive Line Start (07/24/22 04:24) Lactated Ringers (Lr 1000 Ml Iv Solution (07/24/22 04:30) Medications Given in ED Vital Signs/I&O 07/24/22 04:18 Temp 36.9 Pulse 80 Resp 16 B/P (MAP) 111/100 (104) Pulse Ox 96 O2 Delivery Room Air Capillary Refill : Less Than 3 Seconds Blood Pressure Mean: 104 Progress Note : Progress Note DIFFICULT TO OBTAIN AN ACCURATE BLOOD PRESSURE, SHE HAS A RESTING TREMOR, BUT ALSO TIGHTENS HER ARM AND MAKES A VERY TIGHT FIST EVERY TIME THE BP CUFF INFLATES AND SHE C/O PAIN FROM BP CUFF. DIFFICULT TO GET PT TO RELAX HER ARM DURING BP READINGS. A COUPLE OF TIMES, PT WAS ABLE TO RELAX HER ARM, AND BP READINGS WERE 140'S/9 0'S. Diagnostic Imaging Comments CXR--NO ACUTE PROCESS, PENDING RADIOLOGIST REVIEW CT HEAD--NO ACUTE PROCESS, PER RADIOLOGIST VIA PHONE AT 0646 Reviewed: Reviewed by Me Departure Communication (Admissions) 0530--SPOKE WITH DR. JACQUES, ADVISED TO OBTAIN CT OF HEAD, AND IF NO BLEED, THEN WILL ADMIT HERE. WILL CALL HER BACK WITH RESULTS. DOES NOT ADVISE ANTIBIOTICS AT THIS TIME, SHE DOES NOT MEET SEPSIS CRITERIA AND NO INFECTION IS IDENTIFIED AT THIS TIME. 0646--SPOKE WITH DR. JACQUES, DISCUSSED CT RESULTS, ACCEPTS PT FOR ADMIT Impression Primary Impression: Acute kidney injury superimposed on chronic kidney disease Additional Impressions: Dehydration Generalized weakness Polymyalgia rheumatica Essential hypertension Disposition: ADMITTED INPATIENT Condition: Stable Admissions Decision to Admit Reason: Admit from ER (General) Decision to Admit/Date: Jul 24, 2022 Time/Decision to Admit Time: 06:50 Departure-Patient Inst. Referrals: NAM JACQUES MD (PCP/Family) Primary Care Physician Scripts Prednisone (Prednisone) 5 Mg Tablet 5 MG PO UD, #30 TAB Give 2 tablets Daily alternating with 1 tablet every other day. Prov: NAM JACQUES MD 07/24/22 Lactobacillus Rhamnosus GG (Culturelle) 10 Billion Cell Capsule 2 EACH PO DAILY for 60 Days, CAP Prov: NAM JACQUES MD 07/24/22 LOC HAMPTON DO Jul 24, 2022 04:36
[2022-07-24 04:39] LABS: BASOPHILS % (AUTO) 0 % (0-10); EOSINOPHILS % (AUTO) 0 % (0-10); HEMATOCRIT 33 % (35-52); HEMOGLOBIN 11.3 g/dL (11.5-16.0); LYMPHOCYTES % (AUTO) 18 % (12-44); MEAN CORPUSCULAR HEMOGLOBIN 35 pg (25-34); MEAN CORPUSCULAR HGB CONC 34 g/dL (32-36); MEAN CORPUSCULAR VOLUME 101 fL (80-99); MEAN PLATELET VOLUME 10.7 fL (9.0-12.2); MONOCYTES % (AUTO) 0 % (0-12); NEUTROPHILS # (AUTO) 4.2 10^3/uL (1.8-7.8); NEUTROPHILS % (AUTO) 80 % (42-75); PLATELET COUNT 195 10^3/uL (130-400); WHITE BLOOD COUNT 5.3 10^3/uL (4.3-11.0)
[2022-07-24 04:48] LABS: ALBUMIN 3.7 GM/DL (3.2-4.5)
[2022-07-24 04:49] LABS: POTASSIUM 4.3 MMOL/L (3.6-5.0)
[2022-07-24 04:50] LABS: CALCIUM 12.5 MG/DL (8.5-10.1)
[2022-07-24 04:51] LABS: TOTAL PROTEIN 6.6 GM/DL (6.4-8.2)
[2022-07-24 04:53] LABS: BILIRUBIN,TOTAL 0.3 MG/DL (0.1-1.0)
[2022-07-24 04:55] LABS: CREATININE SERUM 2.5 MG/DL (0.60-1.30)
[2022-07-24 04:58] LABS: MAGNESIUM 2.2 MG/DL (1.6-2.4)
[2022-07-24 04:59] LABS: BILIRUBIN,URINE NEGATIVE (NEGATIVE); CLARITY,URINE CLEAR; COLOR,URINE YELLOW; GLUCOSE, URINE (UA) NEGATIVE (NEGATIVE); KETONES,URINE NEGATIVE (NEGATIVE); LEUKOCYTE ESTERASE ,URINE NEGATIVE (NEGATIVE); NITRITE,URINE NEGATIVE (NEGATIVE); PH,URINE 5.5 (5-9); PROTEIN,URINE NEGATIVE (NEGATIVE)
[2022-07-24 05:18] LABS: TSH (THYROID ANALYZER) 1.62 UIU/ML (0.35-4.94)
[2022-07-24 05:19] LABS: VALPROIC ACID 100.7 UG/ML (50.0-100.0)
[2022-07-24 05:21] LABS: BACTERIA,URINE NEGATIVE /HPF
[2022-07-24 05:50] LABS: ERYTHROCYTE SEDIMENTATION RATE 63 MM/HR (0-30)
--- NOTE | 2022-07-24 06:24 | Diagnostic Imaging Report ---
EXAMINATION: Chest 1 view HISTORY: WEAKNESS COMPARISON: 06/14/2021 FINDINGS: Heart size and pulmonary vasculature are normal. Stable mild interstitial opacities in lung bases. No pleural effusion or pneumothorax. The osseous structures are intact. IMPRESSION: 1. Mild interstitial opacities in lung bases which could be seen with atelectasis, atypical infection, or pulmonary edema. Dictated by: Dictated on workstation # [id number]
--- NOTE | 2022-07-24 06:59 | Diagnostic Imaging Report ---
EXAMINATION: CT head without contrast. TECHNIQUE: Multiple contiguous axial images were obtained through the brain without the use of intravenous contrast. All CT scans use one or more of the following dose optimizing techniques: automated exposure control, MA and/or KvP adjustment based on patient size and exam type or iterative reconstruction. HISTORY: Neuro deficit COMPARISON: 06/14/2021 FINDINGS: Mild diffuse cerebral volume loss with proportional enlargement of the ventricles and sulci. Mild hypodensities throughout the supratentorial white matter of both cerebral hemispheres. No acute intracranial hemorrhage or abnormal extra-axial fluid collections are present. Calcification of the intracranial ICAs. No hyperdense vessel. The calvarium is intact. The mastoid air cells are clear. The visualized paranasal sinuses are clear. Surgical changes from cataract repair. IMPRESSION: 1. No acute intracranial abnormality. 2. Chronic microangiopathy and volume loss. Results communicated to Dr. Olivia Armas by Dr. Ryan Chavez at 6:45 AM on 07/24/2022. Dictated by: Dictated on workstation # [id number]
[2022-07-24] MEDS ORDERED: D5 1/2 NS W/KCL 20 MEQ/L 1,000 ML IV SCH (07:30)
[2022-07-24] MEDS ORDERED: UBID100C17 PO (07:43)
[2022-07-24] MEDS ORDERED: CETI10TA17 PO (07:43)
[2022-07-24] MEDS ORDERED: LACT1CAP39 PO ×2 (07:44→07:50)
[2022-07-24] MEDS ORDERED: FOLI1TAB33 PO (07:45)
[2022-07-24] MEDS ORDERED: GLUC1TAB21 PO (07:46)
[2022-07-24] MEDS ORDERED: METO-333 PO (07:47)
[2022-07-24] MEDS ORDERED: OMEP40CA6 PO (07:53)
[2022-07-24 07:59] VITALS: BP 167/94
[2022-07-24] MEDS ORDERED: PRED5TAB PO (08:03)
[2022-07-24] MEDS ORDERED: ACET-2422 PO (08:03)
[2022-07-24] MEDS ORDERED: ASCO100024 PO (08:07)
[2022-07-24] MEDS ORDERED: CYAN-23 PO (08:07)
[2022-07-24] MEDS ORDERED: CHOL200052 PO (08:08)
[2022-07-24 08:10] VITALS: BP 200/85
[2022-07-24] MEDS ORDERED: RT-ALBUTEROL SULF 2.5 MG/3 ML PRE-MIX VIAL INH PRN (08:15)
[2022-07-24] MEDS ORDERED: meTOprolol TARTRATE 25 MG (LOPRESSOR) TABLET ONE (08:54)
[2022-07-24] MEDS: meTOprolol TARTRATE 25 MG (LOPRESSOR) TABLET PO SCH ×2 (08:59→19:42)
[2022-07-24 11:55] VITALS: BP 191/85
--- NOTE | 2022-07-24 11:58 | History & Physical ---
History of Present Illness History of Present Illness Reason for visit/HPI Pt is a 71 y/o female who is known to me from clinic. Masha has Polymyalgia rheumatica, has been managed by rheumatology and has been on steroids for years, she was recently tapered down to off of her steroids - in the past week - after a initiation of Methotrexate in April. The patient's and son called the office with concern for her legs being weak, so we gave the pt a stress burst of steroids x 3 days - with the pt's being informed to take her to the ER if her symptoms worsened. The office nurse called to check on Masha on the second day of the burst to see how she was doing - with her reporting that she was getting a little better. He was encouraged that if there are any changes, to take her to the ER. Masha apparently started to decline on Tuesday and Satinder called the ambulance to take her to the ER because she was too weak to be managed at home. In the ER she was found to be dehydrated with acute on chronic renal failure with hypertensive urgency. Lai was therefore admitted to the hospital for further treatment and monitoring. Date of Admission Jul 24, 2022 at 05:30 Date Seen by a Provider: Jul 24, 2022 Time Seen by a Provider: 11:45 I consulted on this patient on 07/24/22 11:53 Attending Physician Nam Womack MD Admitting Physician Admitting Physician: Nam Womack MD Attending Physician: Nam Womack MD Consult Allergies and Home Medications Allergies Coded Allergies: lorazepam (Verified Allergy, Mild, 12/25/19) allopurinol (Verified Allergy, Unknown, 07/24/22) cephalexin (Verified Allergy, Unknown, 12/25/19) clonazepam (Verified Allergy, Unknown, 07/24/22) enalaprilat (Verified Allergy, Unknown, 07/24/22) hydroxychloroquine (Verified Allergy, Unknown, 07/24/22) sulfamethoxazole (Verified Allergy, Unknown, Rash, 12/25/19) trimethoprim (Verified Allergy, Unknown, Rash, 12/25/19) Patient Home Medication List Home Medication List Reviewed: Yes Acetaminophen (Acetaminophen ER) 650 Mg Tablet.er, 650 MG PO Q6H, (Reported) Entered as Reported by: Claudette Winters on 07/24/22 0803 Last Action: Reviewed Ascorbic Acid (Vitamin C) 1,000 Mg Tablet, 1,000 MG PO DAILY, (Reported) Entered as Reported by: Claudette Winters on 07/24/22806 Last Action: Held Cetirizine HCl (Cetirizine HCl) 10 Mg Tablet, 10 MG PO DAILY, (Reported) Entered as Reported by: Claudette Winters on 07/24/22742 Last Action: Held Cholecalciferol (Vitamin D3) (Vitamin D3) 50 Mcg (2000 Unit) Tablet, 50 MCG PO DAILY, (Reported) Entered as Reported by: Claudette Winters on 07/24/22807 Last Action: Held Cyanocobalamin (Vitamin B-12) (Vitamin B-12) 1,000 Mcg Capsule, 1,000 MCG PO DAILY, (Reported) Entered as Reported by: Claudette Winters on 07/24/22806 Last Action: Held Cyclobenzaprine HCl (Cyclobenzaprine HCl) 5 Mg Tablet, 5 MG PO BID PRN for MUSCLE SPASMS, (Reported) Entered as Reported by: SAMIR CARDONA on 06/15/21 104 Last Action: Held Divalproex Sodium (Divalproex Sodium) 500 Mg Tablet., (Reported) Entered as Reported by: DELONTE PATTEN on 07/24/22423 Last Action: Held Ferrous Sulfate (Ferosul) 325 Mg (65 Mg Iron) Tablet, (Reported) Entered as Reported by: DELONTE PATTEN on 07/24/22423 Last Action: Held Folic Acid (Folic Acid) 1 Mg Tablet, 1 MG PO DAILY, (Reported) Entered as Reported by: Claudette Winters on 07/24/22744 Last Action: Held Gluc Conner/Chondro Conner A/Vit C/Mn (Glucosamine Chondroitin Tab) 750 Mg-600 Mg-55 Mg- 5 Mg Tablet, 1 EACH PO DAILY, (Reported) Entered as Reported by: Claudette Winters on 07/24/22745 Last Action: Held Lactobacillus Rhamnosus GG (Culturelle) 10 Billion Cell Capsule, 2 EACH PO DAILY Prescribed by: Claudette Winters on 07/24/22 075 Last Action: Held Methotrexate Sodium (Methotrexate) 2.5 Mg Tablet, (Reported) Entered as Reported by: DELONTE PATTEN on 07/24/22423 Last Action: Held Metoprolol Tartrate (Metoprolol Tartrate) 25 Mg Tablet, 25 MG PO BID, (Reported) Entered as Reported by: Claudette Winters on 07/24/22 0747 Last Action: Reviewed Mv-Mn/Folic Acid/Calcium/Vit K (Women's 50 Plus Multivit Tab) 1 Each Tablet, 1 EACH PO DAILY, (Reported) Entered as Reported by: SAMIR CARDONA on 06/15/211044 Last Action: Held Omeprazole (Omeprazole) 40 Mg Capsule.dr, 40 MG PO BID, (Reported) Entered as Reported by: Claudette Winters on 07/24/22 0753 Last Action: Reviewed Prednisone (Prednisone) 5 Mg Tablet, 5 MG PO UD Prescribed by: Claudette Winters on 07/24/22 0803 Last Action: Held Ubidecarenone (Coq-10) 100 Mg Capsule, 100 MG PO DAILY, (Reported) Entered as Reported by: Claudette Winters on 07/24/22 0743 Last Action: Held Discontinued Medications Cholecalciferol (Vitamin D3) (Vitamin D3) 25 Mcg Capsule, 50 MCG PO BID, (R eported) Discontinued Reason: No Longer Taking Entered as Reported by: SAMIR CARDONA on 06/15/211044 Last Action: Discontinued Doxycycline Hyclate (Doxycycline Hyclate) 100 Mg Tablet, (Reported) Entered as Reported by: DELONTE PATTEN on 07/24/22423 Last Action: Discontinued Fexofenadine HCl (Mayelin Allergy) 180 Mg Tablet, 180 MG PO HS, (Reported) Discontinued Reason: No Longer Taking Entered as Reported by: SAMIR CARDONA on 06/15/211044 Last Action: Discontinued Hydralazine HCl (Hydralazine HCl) 10 Mg Tablet, 10 MG PO Q4HR PRN for BLOOD PRESSURE Discontinued Reason: No Longer Taking Prescribed by: NAM WOMACK on 06/16/21 105 Last Action: Discontinued Metoprolol Tartrate (Metoprolol Tartrate) 100 Mg Tablet, 100 MG PO BID Discontinued Reason: Duplicate Order Prescribed by: NAM WOMACK on 06/16/21 105 Last Action: Discontinued Omeprazole (Omeprazole) 40 Mg Capsule., (Reported) Discontinued Reason: Duplicate Order Entered as Reported by: DELONTE PATTEN on 07/24/22423 Last Action: Discontinued Prednisone (Prednisone) 20 Mg Tab, (Reported) Discontinued Reason: No Longer Taking Entered as Reported by: DELONTE PATTEN on 07/24/22423 Last Action: Discontinued Rosuvastatin Calcium (Crestor) 10 Mg Tablet, 10 MG PO HS, (Reported) Discontinued Reason: No Longer Taking Entered as Reported by: SAMIR CARDONA on 06/15/21 1045 Last Action: Discontinued Past Kkuthtz-Zvhetp-Uejjve Hx Patient Social History Marrital Status: Number of Children: 2 Number of living children: 2 Living Status: lives at home with spouse Employed/Student: retired Tobacco Use?: No Smoking Status: Never a Smoker Use of E-Cig and/or Vaping dev: No Substance use?: No Alcohol Use?: No Pt feels they are or have been: No Immunizations Up To Date First/Initial COVID19 Vaccinat: 2020 Second COVID19 Vaccination Jeff: JANUARY 2021 Tetanus Booster (TDap): Unknown Hepatitis A: No Hepatitis B: No Seasonal Allergies Seasonal Allergies: Yes Current Status status: No Advance Directives: Yes Advance Directive Location: Home Communicates: Verbally Primary Language: Moroccan Preferred Spoken Language: Moroccan Is interpretation needed?: No Sensory deficits: Vision impairment Implanted or Applied Medical D: None Past Medical History Surgeries: Breast, Eye Surgery, Hysterectomy, Renal Currently Using CPAP: No Currently Using BIPAP: No Coronary Artery Disease, Heart Murmur, High Cholesterol, Hypertension Sexually Transmitted Disease: No HIV/AIDS: No Renal Failure, UTI-Chronic Polyps Arthritis, Fractures Are Your Blood Sugars Over 250: No Cataract Loss of Vision: Denies Hearing Impairment: Denies Anxiety, Bipolar, Depression Blood Disorders: No Family Medical History Reviewed and Corrections made Heart Disease, Hypertension Review of Systems Constitutional: No chills, No diaphoresis, No fever; malaise, weakness EENTM: No hoarseness, No mouth pain, No throat pain Respiratory: No cough, No dyspnea on exertion, No short of breath Cardiovascular: No palpitations Gastrointestinal: No abdominal pain, No constipation, No diarrhea; loss of appetite, nausea; No vomiting Genitourinary: incontinence Musculoskeletal: No back pain; joint pain, muscle weakness Skin: other (bruising, ecchymosis on hands, lower legs intermittently) Psychiatric/Neurological: Anxiety, Depressed, Weakness All Other Systems Reviewed Negative Unless Noted: No Physical Exam Vital Signs Vital Signs - First Documented 07/24/22 04:18 Temp 36.9 Pulse 80 Resp 16 B/P (MAP) 111/100 (104) Pulse Ox 96 O2 Delivery Room Air Capillary Refill : Less Than 3 Seconds Height, Weight, BMI Height: 5'6.00" Weight: 150lbs. 0.0oz. [id number]; 25.21 BMI Method:Estimated General Appearance: No Apparent Distress, WD/WN HEENT: PERRL/EOMI, Pharynx Normal Neck: Full Range of Motion, Non Tender, Supple Respiratory: Chest Non Tender, Lungs Clear, Normal Breath Sounds, No Accessory Muscle Use, No Respiratory Distress Cardiovascular: Regular Rate, Rhythm, Normal Peripheral Pulses, Systolic Murmur Gastrointestinal: Normal Bowel Sounds, No Organomegaly, No Pulsatile Mass, Non Tender, Soft Rectal: Deferred Extremity: Normal Capillary Refill, Pedal Edema (trace) Neurologic/Psychiatric: Alert, Oriented x3, Normal Mood/Affect, Other (hypersensitive skin tissue) Skin: Warm/Dry, Ecchymosis (on hands/legs, arms) Assessment/Plan Assessment and Plan Acute on Chronic renal failure Hypertensive Urgency Dehydration Polymyalgia Rheumatica Adrenal Crisis from steroid withdrawal Chronic Bipolar Mood disorder with hx of don Recent Urinary tract infection Osteoarthritis Chronic anemia Hypercalcemia Elevated CRP Elevated Procalcitonin Elevated Depakote level Acute on Chronic renal failure with Dehydration - pt has chronic stage 3 renal failure with creatinine usually in the 1.5 range. - hydrate, repeat labs in the morning - hold potassium in fluids - change from D51/2ns+20meq to NS Hypertensive Urgency - should improve with restarting her home metoprolol. Polymyalgia Rheumatica - hold methotrexate for now, monitor symptoms. 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 - plan will be dexamethasone 1mg iv tid x 2 days and we will monitor her symptoms from that point with a decreased oral steroid dosing schedule. Chronic Bipolar Mood disorder with hx of don - and current Elevated Depakote level - hold depakote for now due to supratherapeutic depakote level - her last level was drawn by her psychiatrist a few months ago - at 66, so this is a large increase in her level - this may account for some of her muscle weakness symptoms. Masha usually sits in the mid 50's with her depakote levels. - repeat depakote level on Tuesday of this week Recent Urinary tract infection - pt has completed antibiotic course and has a negative UA. Osteoarthritis - tylenol PRN. Chronic anemia - monitor labs, anticipate a little decline in her hgb with hydration. Hypercalcemia - may improve with hydration, monitor pth, vitamin d level. Elevated CRP - repeat on tuesday or tuesday Elevated Procalcitonin Generalized weakness - start physical therapy - may need to consider SNF placement versus IRF placement depending on how she recovers with hydration and iv steroids and holding of the depakote. DVT prophylaxis with lovenox, and scd's if pt can tolerate gi prophyalxis with ppi therapy Admission Diagnosis Acute on Chronic renal failure Hypertensive Urgency Dehydration Polymyalgia Rheumatica Adrenal Crisis from steroid withdrawal Chronic Bipolar Mood disorder with hx of don Recent Urinary tract infection Osteoarthritis Chronic anemia Hypercalcemia Elevated CRP Elevated Procalcitonin Elevated Depakote level Admission Status: Inpatient Order (span 2 midnights) Reason for Inpatient Admission: inpatient admission for renal failure, adrenal crisis, supratherapeutic depakote level, hypertensive urgency - will require more than 2 midnights to stabilize and treat pt's acute health concerns NAM WOMACK MD Jul 24, 2022 11:58
[2022-07-24] MEDS: NS IV 1000 ML 1,000 ML IV SCH ×2 (12:34→22:06)
[2022-07-24] MEDS: ENOXAPARIN INJECTION 30 MG/0.3 ML SYR SC SCH (13:50)
[2022-07-24 16:58] VITALS: BP 180/84
[2022-07-24] MEDS ORDERED: BRIM5DRO12 OP (17:47)
[2022-07-24] MEDS ORDERED: CARB10DR5 OP (17:47)
[2022-07-24 20:19] VITALS: BP 135/79
[2022-07-25] VITALS (7 sets, daily range): BP systolic 142–201; BP diastolic 73–94
[2022-07-25] MEDS: meTOprolol TARTRATE 25 MG (LOPRESSOR) TABLET PO SCH ×3 (00:06→19:55)
[2022-07-25 06:16] LABS: BASOPHILS % (AUTO) 0 % (0-10); EOSINOPHILS % (AUTO) 0 % (0-10); HEMATOCRIT 28 % (35-52); HEMOGLOBIN 9.6 g/dL (11.5-16.0); LYMPHOCYTES # (AUTO) 0.8 10^3/uL (1.0-4.0); LYMPHOCYTES % (AUTO) 19 % (12-44); MEAN CORPUSCULAR HEMOGLOBIN 36 pg (25-34); MEAN CORPUSCULAR HGB CONC 35 g/dL (32-36); MEAN CORPUSCULAR VOLUME 102 fL (80-99); MEAN PLATELET VOLUME 10.5 fL (9.0-12.2); MONOCYTES # (AUTO) 0.1 10^3/uL (0.0-1.0); MONOCYTES % (AUTO) 2 % (0-12); NEUTROPHILS # (AUTO) 3.3 10^3/uL (1.8-7.8); NEUTROPHILS % (AUTO) 77 % (42-75); PLATELET COUNT 147 10^3/uL (130-400); WHITE BLOOD COUNT 4.3 10^3/uL (4.3-11.0)
[2022-07-25 06:33] LABS: ALBUMIN 3.1 GM/DL (3.2-4.5)
[2022-07-25 06:34] LABS: POTASSIUM 4.1 MMOL/L (3.6-5.0)
[2022-07-25 06:35] LABS: CALCIUM 10.4 MG/DL (8.5-10.1)
[2022-07-25 06:36] LABS: TOTAL PROTEIN 5.4 GM/DL (6.4-8.2)
[2022-07-25 06:38] LABS: BILIRUBIN,TOTAL 0.4 MG/DL (0.1-1.0)
[2022-07-25 06:39] LABS: CREATININE SERUM 1.64 MG/DL (0.60-1.30)
[2022-07-25] MEDS: NS IV 1000 ML 1,000 ML IV SCH (08:06)
[2022-07-25] MEDS: PANTOPRAZOLE 40 MG (PROTONIX) TAB PO SCH (08:55)
[2022-07-25] MEDS: 1/2 NS IV SOLUTION 1,000 ML IV SCH ×2 (09:35→19:55)
[2022-07-25] MEDS: SENNA W/DOCUSATE (SENOKOT S) TABLET PO SCH ×2 (09:35→19:55)
--- NOTE | 2022-07-25 09:36 | Progress Note ---
Subjective Subjective Date Seen by Provider: Jul 25, 2022 Time Seen by Provider: 08:30 Pt is a 71 y/o female who is known to me from clinic. Masha presented to the hospital with weakness, dehydration, and muscle pain. She was found to be dehydrated and had hypertensive urgency with renal failure. Today the patients , Satinder is in the room, and dtr Fanta is on the phone. The patient reports that she thinks she is feeling a little bit better today compared to yesterday. She reports that she does not have intrusive thoughts, and she is not excessively depressed. She admitted to a decreased appetite prior to hospitalization. She states that she just started to drink ensure in place of a meal at home in the past few days prior to admission. her states that her last bowel movement was a few days prior to admiss ion. Her dtr is concerned about her mom's renal function numbers. the pt and her are worried about her safety going home. Review of Systems General: No Chills; Fatigue, Malaise, Appetite (decreased) Pulmonary: No Dyspnea; Cough Cardiovascular: No: Chest Pain, Palpitations Gastrointestinal: Other (concern for reflux); No: Nausea, Vomiting, Abdominal Pain Musculoskeletal: leg pain Neurological: Weakness, Confusion (intermittent) pt complains about severely sensitive skin with significant pain to light touch All Other Systems Reviewed All Other Systems Reviewed: No Objective Exam Vital Signs Vital Signs Date Time Temp Pulse Resp B/P (MAP) Pulse Ox O2 Delivery O2 Flow Rate FiO2 07/25/22 07:54 97 Room Air 07/25/22 07:37 36.0 68 18 201/94 (129) 97 Room Air 07/25/22 07:00 65 07/25/22 04:00 36.4 72 18 165/80 (108) 95 Room Air 07/25/22 01:07 63 07/25/22 00:00 37.0 76 18 182/93 (122) 95 Room Air 07/24/22 20:19 36.5 78 18 135/79 (97) 95 Room Air 07/24/22 19:40 Room Air 07/24/22 19:00 77 07/24/22 16:58 36.3 71 18 180/84 (116) 94 Room Air 07/24/22 12:37 70 07/24/22 11:55 35.8 77 18 191/85 (120) 97 Room Air I & O 07/25/22 07:00 Intake Total 3030 ml Output Total 700 ml Balance 2330 ml General Appearance: No Apparent Distress, WD/WN, Other (improved color and improved interaction today) HEENT: PERRL/EOMI Neck: Full Range of Motion, Non Tender, Supple Respiratory: Lungs Clear, Normal Breath Sounds, No Accessory Muscle Use, No Respiratory Distress Cardiovascular: Regular Rate, Rhythm, No Murmur Gastrointestinal: Normal Bowel Sounds, Non Tender, Soft Rectal: Deferred Extremity: Normal Capillary Refill, No Pedal Edema Neurologic/Psychiatric: Alert, Oriented x3, No Motor/Sensory Deficits, Normal Mood/Affect, Other (RESTING TREMOR, ESPECIALLY OF ARMS) Skin: Warm/Dry, Ecchymosis (on arms, legs, hands) Results Lab Laboratory Tests 07/25/22 06:06: White Blood Count 4.3, Red Blood Count 2.70L, Hemoglobin 9.6L, Hematocrit 28L, Mean Corpuscular Volume 102H, Mean Corpuscular Hemoglobin 36H, Mean Corpuscular Hemoglobin Concent 35, Red Cell Distribution Width 15.7H, Platelet Count 147, Mean Platelet Volume 10.5, Immature Granulocyte % (Auto) 2, Neutrophils (%) (Auto) 77H, Lymphocytes (%) (Auto) 19, Monocytes (%) (Auto) 2, Eosinophils (%) (Auto) 0, Basophils (%) (Auto) 0, Neutrophils # (Auto) 3.3, Lymphocytes # (Auto) 0.8L, Monocytes # (Auto) 0.1, Eosinophils # (Auto) 0.0, Basophils # (Auto) 0.0, Immature Granulocyte # (Auto) 0.1, Sodium Level 147H, Potassium Level 4.1, Chloride Level 116H, Carbon Dioxide Level 18L, Anion Gap 13, Blood Urea Nitrogen 45H, Creatinine 1.64H, Estimat Glomerular Filtration Rate 33, BUN/Creatinine Ratio 27, Glucose Level 113H, Calcium Level 10.4H, Corrected Calcium 11.1H, Total Bilirubin 0.4, Aspartate Amino Transf (AST/SGOT) 21, Alanine Aminotransferase (ALT/SGPT) 18, Alkaline Phosphatase 34L, Total Protein 5.4L, Albumin 3.1L Microbiology 07/24/22 Urine Culture - Final, Complete NO GROWTH Assessment/Plan Assessment/Plan Admission Dx Acute on Chronic renal failure Hypertensive Urgency Dehydration Polymyalgia Rheumatica Adrenal Crisis from steroid withdrawal Chronic Bipolar Mood disorder with hx of don Recent Urinary tract infection Osteoarthritis Chronic anemia Hypercalcemia Elevated CRP Elevated Procalcitonin Elevated Depakote level Assessment and Plan Acute on Chronic renal failure Hypertensive Urgency Dehydration Polymyalgia Rheumatica Adrenal Crisis from steroid withdrawal Chronic Bipolar Mood disorder with hx of don Recent Urinary tract infection Osteoarthritis Chronic anemia Hypercalcemia Elevated CRP Elevated Procalcitonin Elevated Depakote level Hypernatremia Hyperchloremia Anemia of chronic disease Acute on Chronic renal failure with Dehydration - pt has chronic stage 3 renal failure with creatinine usually in the 1.5 range. - hydrate, repeat labs in the morning - hold potassium in fluids - on 07/24/22 change from D51/2ns+20meq to NS at 100mL/hr - on 07/25/22 due to her hypernatremia and hyperchloremia - we are changing to 1/2 NS at 100ml/hr Hypertensive Urgency - continue to anticipate improvement with her home metoprolol dosing, and will have staff check her bp on her forearm due to pain with constriction of the bp cuff on her bicep region/upper arm. Polymyalgia Rheumatica - hold methotrexate for now, monitor symptoms. 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 - plan will be dexamethasone 1mg iv qid x 2 days and we will monitor her symptoms from that point with a decreased oral steroid dosing schedule. Chronic Bipolar Mood disorder with hx of don - and current Elevated Depakote level - hold depakote for tuesday and tuesday due to supratherapeutic depakote level - I spoke to her psychiatrist yesterday on the phone, she was in agreement with my plan to hold the depakote for tuesday and tuesday. The psychiatrist Dr. Woodruff, specifically requested that Masha's depakote be restarted no lower than 750mg daily - she is on the depakote ER 1000mg daily at home. - check depakote level tomorrow Recent Urinary tract infection - pt has completed antibiotic course and has a negative UA. Osteoarthritis - tylenol PRN. Chronic anemia - monitor labs, anticipate a little decline in her hgb with hydration. Hypercalcemia - improving with hydration, slightly elevated pth, vitamin d level is still pending. Elevated CRP - repeat on tuesday or tuesday Elevated Procalcitonin Generalized weakness - start physical therapy - I have discussed with Masha Satinder, and their Dtr Fanta - they would like to look into IRF placement if she qualifies. They would like to avoid SNF if possible. I have discussed paid caregivers - such as [facility] out of [place] - they will look into this for help with Satinder at home. DVT prophylaxis with lovenox, and scd's if pt can tolerate gi prophyalxis with ppi therapy Admission Dx Acute on Chronic renal failure Hypertensive Urgency Dehydration Polymyalgia Rheumatica Adrenal Crisis from steroid withdrawal Chronic Bipolar Mood disorder with hx of don Recent Urinary tract infection Osteoarthritis Chronic anemia Hypercalcemia Elevated CRP Elevated Procalcitonin Elevated Depakote level Acute on Chronic renal failure with Dehydration - pt has chronic stage 3 renal failure with creatinine usually in the 1.5 range. - hydrate, repeat labs in the morning - hold potassium in fluids - change from D51/2ns+20meq to NS Hypertensive Urgency - should improve with restarting her home metoprolol. Polymyalgia Rheumatica - hold methotrexate for now, monitor symptoms. 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 - plan will be dexamethasone 1mg iv tid x 2 days and we will monitor her symptoms from that point with a decreased oral steroid dosing schedule. Chronic Bipolar Mood disorder with hx of don - and current Elevated Depakote level - hold depakote for now due to supratherapeutic depakote level - her last level was drawn by her psychiatrist a few months ago - at 66, so this is a large increase in her level - this may account for some of her muscle weakness symptoms. Masha usually sits in the mid 50's with her depakote levels. - repeat depakote level on Tuesday of this week Recent Urinary tract infection - pt has completed antibiotic course and has a negative UA. Osteoarthritis - tylenol PRN. Chronic anemia - monitor labs, anticipate a little decline in her hgb with hydration. Hypercalcemia - may improve with hydration, monitor pth, vitamin d level. Elevated CRP - repeat on tuesday or tuesday Elevated Procalcitonin Generalized weakness - start physical therapy - may need to consider SNF placement versus IRF placement depending on how she recovers with hydration and iv steroids and holding of the depakote. DVT prophylaxis with lovenox, and scd's if pt can tolerate gi prophyalxis with ppi therapy Clinical Quality Measures Admission Status Admission Dx Acute on Chronic renal failure Hypertensive Urgency Dehydration Polymyalgia Rheumatica Adrenal Crisis from steroid withdrawal Chronic Bipolar Mood disorder with hx of don Recent Urinary tract infection Osteoarthritis Chronic anemia Hypercalcemia Elevated CRP Elevated Procalcitonin Elevated Depakote level Acute on Chronic renal failure with Dehydration - pt has chronic stage 3 renal failure with creatinine usually in the 1.5 range. - hydrate, repeat labs in the morning - hold potassium in fluids - change from D51/2ns+20meq to NS Hypertensive Urgency - should improve with restarting her home metoprolol. Polymyalgia Rheumatica - hold methotrexate for now, monitor symptoms. 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 - plan will be dexamethasone 1mg iv tid x 2 days and we will monitor her symptoms from that point with a decreased oral steroid dosing schedule. Chronic Bipolar Mood disorder with hx of don - and current Elevated Depakote level - hold depakote for now due to supratherapeutic depakote level - her last level was drawn by her psychiatrist a few months ago - at 66, so this is a large increase in her level - this may account for some of her muscle weakness symptoms. Masha usually sits in the mid 50's with her depakote levels. - repeat depakote level on Tuesday of this week Recent Urinary tract infection - pt has completed antibiotic course and has a negative UA. Osteoarthritis - tylenol PRN. Chronic anemia - monitor labs, anticipate a little decline in her hgb with hydration. Hypercalcemia - may improve with hydration, monitor pth, vitamin d level. Elevated CRP - repeat on tuesday or tuesday Elevated Procalcitonin Generalized weakness - start physical therapy - may need to consider SNF placement versus IRF placement depending on how she recovers with hydration and iv steroids and holding of the depakote. DVT prophylaxis with lovenox, and scd's if pt can tolerate gi prophyalxis with ppi therapy NAM JACQUES MD Jul 25, 2022 09:36
[2022-07-25] MEDS: ENOXAPARIN INJECTION 30 MG/0.3 ML SYR SC SCH (13:33)
[2022-07-26] VITALS (8 sets, daily range): BP systolic 131–208; BP diastolic 85–122
[2022-07-26] MEDS: 1/2 NS IV SOLUTION 1,000 ML IV SCH ×2 (05:45→15:47)
[2022-07-26 06:40] LABS: BASOPHILS % (AUTO) 0 % (0-10); EOSINOPHILS % (AUTO) 0 % (0-10); HEMATOCRIT 29 % (35-52); HEMOGLOBIN 9.7 g/dL (11.5-16.0); LYMPHOCYTES # (AUTO) 1.5 10^3/uL (1.0-4.0); LYMPHOCYTES % (AUTO) 25 % (12-44); MEAN CORPUSCULAR HEMOGLOBIN 35 pg (25-34); MEAN CORPUSCULAR HGB CONC 34 g/dL (32-36); MEAN CORPUSCULAR VOLUME 105 fL (80-99); MEAN PLATELET VOLUME 10.5 fL (9.0-12.2); MONOCYTES # (AUTO) 0.3 10^3/uL (0.0-1.0); MONOCYTES % (AUTO) 4 % (0-12); NEUTROPHILS # (AUTO) 3.9 10^3/uL (1.8-7.8); NEUTROPHILS % (AUTO) 65 % (42-75); PLATELET COUNT 158 10^3/uL (130-400); WHITE BLOOD COUNT 5.9 10^3/uL (4.3-11.0)
[2022-07-26 06:57] LABS: ALBUMIN 3.1 GM/DL (3.2-4.5); POTASSIUM 4.3 MMOL/L (3.6-5.0)
[2022-07-26 06:58] LABS: CALCIUM 10.8 MG/DL (8.5-10.1)
[2022-07-26 06:59] LABS: TOTAL PROTEIN 5.3 GM/DL (6.4-8.2)
[2022-07-26 07:01] LABS: BILIRUBIN,TOTAL 0.4 MG/DL (0.1-1.0)
[2022-07-26 07:03] LABS: CREATININE SERUM 1.67 MG/DL (0.60-1.30)
[2022-07-26 07:14] LABS: VALPROIC ACID 7.1 UG/ML (50.0-100.0)
[2022-07-26] MEDS: SENNA W/DOCUSATE (SENOKOT S) TABLET PO SCH ×2 (08:34→20:42)
[2022-07-26] MEDS: meTOprolol TARTRATE 25 MG (LOPRESSOR) TABLET PO SCH ×2 (08:34→19:34)
[2022-07-26] MEDS: PANTOPRAZOLE 40 MG (PROTONIX) TAB PO SCH (08:34)
--- NOTE | 2022-07-26 09:07 | Progress Note ---
Subjective Subjective Date Seen by Provider: Jul 26, 2022 Time Seen by Provider: 08:40 Pt is a 71 y/o female who is known to me from clinic. Masha presented to the hospital with weakness, dehydration, and muscle pain. She was found to be dehydrated and had hypertensive urgency with renal failure. Satinder is in the room with Masha, he states that she ate most of her breakfast. Masha states that her stools are soft and she had a bowel movement yesterday. She denies chest pain, shortness of breath, feels like there is mucous in her throat that occasionally causes her to cough. She reports that she is feeling a little better, her anxiety is better as well. Review of Systems General: No Chills; Fatigue, Malaise, Appetite (decreased) Pulmonary: No Dyspnea; Cough Cardiovascular: No: Chest Pain, Palpitations Gastrointestinal: Other (concern for reflux); No: Nausea, Vomiting, Abdominal Pain Musculoskeletal: leg pain Neurological: Weakness, Confusion (intermittent) pt complains about severely sensitive skin with significant pain to light touch All Other Systems Reviewed All Other Systems Reviewed: No Objective Exam Vital Signs Vital Signs Date Time Temp Pulse Resp B/P (MAP) Pulse Ox O2 Delivery O2 Flow Rate FiO2 07/26/22 08:27 Room Air 07/26/22 07:15 36.0 67 18 188/117 (140) 95 Room Air 07/26/22 06:49 63 07/26/22 04:30 36.5 72 20 137/85 (102) 96 Room Air 07/26/22 01:00 68 07/25/22 23:57 36.1 73 18 164/88 (113) 96 Room Air 07/25/22 20:12 36.4 76 18 142/73 (96) 96 Room Air 07/25/22 20:00 Room Air 07/25/22 19:00 71 07/25/22 16:00 36.2 84 20 188/85 (119) 97 Room Air 07/25/22 12:38 60 07/25/22 11:22 36.4 66 18 159/76 (103) 96 Room Air I & O 07/26/22 07:00 Intake Total 5090 ml Output Total 1550 ml Balance 3540 ml General Appearance: No Apparent Distress, WD/WN, Other (improved color and improved interaction today) HEENT: PERRL/EOMI Neck: Full Range of Motion, Non Tender, Supple Respiratory: Chest Non Tender, Lungs Clear, Normal Breath Sounds, No Accessory Muscle Use, No Respiratory Distress Cardiovascular: Regular Rate, Rhythm, No Murmur Gastrointestinal: Normal Bowel Sounds, Non Tender, Soft Rectal: Deferred Neurologic/Psychiatric: Alert, Oriented x3, No Motor/Sensory Deficits, Normal Mood/Affect, Other (RESTING TREMOR, ESPECIALLY OF ARMS) Skin: Warm/Dry, Ecchymosis (on arms, legs, hands) Results Lab Laboratory Tests 07/26/22 05:58: White Blood Count 5.9, Red Blood Count 2.75L, Hemoglobin 9.7L, Hematocrit 29L, Mean Corpuscular Volume 105H, Mean Corpuscular Hemoglobin 35H, Mean Corpuscular Hemoglobin Concent 34, Red Cell Distribution Width 15.9H, Platelet Count 158, Mean Platelet Volume 10.5, Immature Granulocyte % (Auto) 5, Neutrophils (%) (Auto) 65, Lymphocytes (%) (Auto) 25, Monocytes (%) (Auto) 4, Eosinophils (%) (Auto) 0, Basophils (%) (Auto) 0, Neutrophils # (Auto) 3.9, Lymphocytes # (Auto) 1.5, Monocytes # (Auto) 0.3, Eosinophils # (Auto) 0.0, Basophils # (Auto) 0.0, Immature Granulocyte # (Auto) 0.3H, Sodium Level 141, Potassium Level 4.3, Chloride Level 113H, Carbon Dioxide Level 17L, Anion Gap 11, Blood Urea Nitrogen 49H, Creatinine 1.67H, Estimat Glomerular Filtration Rate 32, BUN/Creatinine Ratio 29, Glucose Level 123H, Calcium Level 10.8H, Corrected Calcium 11.5H, Total Bilirubin 0.4, Aspartate Amino Transf (AST/SGOT) 25, Alanine Am inotransferase (ALT/SGPT) 24, Alkaline Phosphatase 45, Total Protein 5.3L, Albumin 3.1L, Valproic Acid (Depakene) Level 7.1L Microbiology 07/24/22 Blood Culture - Preliminary, Resulted No growth 07/24/22 Urine Culture - Final, Complete NO GROWTH Assessment/Plan Assessment/Plan Admission Dx Acute on Chronic renal failure Hypertensive Urgency Dehydration Polymyalgia Rheumatica Adrenal Crisis from steroid withdrawal Chronic Bipolar Mood disorder with hx of don Recent Urinary tract infection Osteoarthritis Chronic anemia Hypercalcemia Elevated CRP Elevated Procalcitonin Elevated Depakote level Assessment and Plan Acute on Chronic renal failure Hypertensive Urgency Dehydration Polymyalgia Rheumatica Adrenal Crisis from steroid withdrawal Chronic Bipolar Mood disorder with hx of don Recent Urinary tract infection Osteoarthritis Chronic anemia Hypercalcemia Elevated CRP Elevated Procalcitonin Elevated Depakote level Hypernatremia Hyperchloremia Anemia of chronic disease Acute on Chronic renal failure with Dehydration - pt has chronic stage 3 renal failure with creatinine usually in the 1.5 range. - hydrate, repeat labs in the morning - hold potassium in fluids - on 07/24/22 change from D51/2ns+20meq to NS at 100mL/hr - on 07/25/22 due to her hypernatremia (now resolved) and hyperchloremia - we changed her fluids to 1/2 NS at 100ml/hr, will decrease rate tomorrow Hypertensive Urgency - staff to check her bp on her forearm due to pain with constriction of the bp cuff on her bicep region/upper arm. - I suspect her elevated BP is due to her skin sensitivity. BP at home is normal Polymyalgia Rheumatica - hold methotrexate for now, monitor symptoms. 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 - plan will be dexamethasone 1mg iv qid x 2 days and we will monitor her symptoms from that point with a decreased oral steroid dosing schedule. Chronic Bipolar Mood disorder with hx of don - and current Elevated Depakote level - I spoke to her psychiatrist yesterday on the phone, she was in agreement with my plan to hold the depakote for tuesday and tuesday. The psychiatrist Dr. Woodruff, specifically requested that Masha's depakote be restarted no lower than 750mg daily - she is on the depakote ER 1000mg daily at home. - check repeat depakote level tomorrow - 250mg depakote this morning and 750mg starting tonight. Recent Urinary tract infection - pt has completed antibiotic course and has a negative UA. Osteoarthritis - tylenol PRN. Chronic anemia - monitor labs, anticipate a little decline in her hgb with hydration. Hypercalcemia - improving with hydration, slightly elevated pth, vitamin d level is still pending. Generalized weakness - start physical therapy today. - I have discussed with Satinder Flanagan, and their Dtr Fanta - they would like to look into IRF placement if she qualifies. They would like to avoid SNF if possible. I have discussed paid caregivers - such as [facility] out of [place] - they will look into this for help with Satinder at home. DVT prophylaxis with lovenox, and scd's if pt can tolerate gi prophyalxis with ppi therapy Admission Dx Acute on Chronic renal failure Hypertensive Urgency Dehydration Polymyalgia Rheumatica Adrenal Crisis from steroid withdrawal Chronic Bipolar Mood disorder with hx of don Recent Urinary tract infection Osteoarthritis Chronic anemia Hypercalcemia Elevated CRP Elevated Procalcitonin Elevated Depakote level Clinical Quality Measures Admission Status Admission Dx Acute on Chronic renal failure Hypertensive Urgency Dehydration Polymyalgia Rheumatica Adrenal Crisis from steroid withdrawal Chronic Bipolar Mood disorder with hx of don Recent Urinary tract infection Osteoarthritis Chronic anemia Hypercalcemia Elevated CRP Elevated Procalcitonin Elevated Depakote level NAM JACQUES MD Jul 26, 2022 09:07
--- NOTE | 2022-07-26 10:52 | Physical Therapy Evaluation ---
PT Evaluation-General Medical Diagnosis Admission Date Jul 24, 2022 at 05:30 Medical Diagnosis: Polymyalgic Rheumatica, Dehydrated with acute on chronic renal failure Onset Date: Jul 24, 2022 Therapy Diagnosis Therapy Diagnosis: gait deficit, strength deficit Height/Weight Height (Feet): 5 Height (Inches): 6.00 Weight (Pounds): 150 Weight (Ounces): 0.0 Precautions Precautions/Isolations: Fall Prevention, Standard Precautions Weight Bear Status Right Lower Extremity: Right Full Weight Bearing Left Lower Extremity: Left Full Weight Bearing Referral Physician: Dr. Womack Reason for Referral: Evaluation/Treatment Medical History Reviewed History: Yes Social History Home: Single Level Current Living Status: Spouse Entry Into Home: Level Entry PT Steps Into Home: 0 Prior Prior Level of Function SCALE: Activities may be completed with or without assistive devices. 3-Fbwnrimizk-wupwqze completes the activity by him/herself with no assistance from a helper. 5-Set-up or Clean-up Assistance-helper sets up or cleans up; patient completes activity. [place] assists only prior to or following the activity. 4-Supervision or Touching Assistance-helper provides verbal cues and/or touching/steadying and/or contact guard assistance as patient completes activity. Assistance may be provided throughout the activity or intermittently. 3-Partial/Moderate Assistance-helper does LESS THAN HALF the effort. [place] lifts, holds or supports trunk or limbs, but provides less than half the effort. 2-Substantial/Maximal Assistance-helper does MORE THAN HALF the effort. [place] lifts or holds trunk or limbs and provides more than half the effort. 5-Uplmlrhaz-onjfsy does ALL the effort. Patient does none of the effort to complete the activity. Or, the assistance of 2 or more helpers is required for the patient to complete the activity. If activity was not attempted, code reason: 7-Patient Refused. 9-Not Applicable-not attempted and the patient did not perform the activity before the current illness, exacerbation or injury. 10-Not Attempted due to Environmental Limitations-(lack of equipment, weather restraints, etc.). 88-Not Attempted due to Medical Conditions or Safety Concerns. Bed Mobility: 6 Transfers (B,C,W/C): 6 Gait: 6 Indoor Mobility (Ambulation): Independent Prior Devices Use: Walker Patients reports he assists her with ADLs including dressing, bathing when she is feeling more weak. He does all of the cooking and cleaning. PT Evaluation-Current Subjective Patient on BS with nurse and REHAB PHYSICIAN in the room upon PT arrival, agreeable to treatment. Patient rates pain at 0/10 currently, but notes her skin billy at times. Objective Patient Orientation: Person, Place, Time, Situation ROM/Strength ROM Lower Extremities WFLs bilaterally all planes Strength Lower Extremities 3/5 bilaterally all planes Sensory Vision: Functional Hearing: Functional Sensation Right Upper Extremit: Intact Sensation Left Upper Extremity: Intact Transfers Roll Left to Right (QC): 2 Sit to Lying (QC): 2 Lying to Sitting/Side of Bed(Q: 2 Sit to Stand (QC): 1 Chair/Mcm-wb-Fwegg Xfer(QC): 1 Toilet Transfer (QC): 1 Patient transferred with nursing staff, max x 2 upon PT arrival. She was too fatigued after transferring to the [facility] to ambulate. Gait Does the Patient Walk?: No and Walking Goal IS indicated Mode of Locomotion: Both Anticipated Mode of Locomotion: Both Balance Sitting Static: Fair Sitting Dynamic: Fair Standing Static: Poor Standing Dynamic: Poor Treatment LE AROM therapeutic exercise all planes x 20 bilaterally Assessment/Needs Patient very fatigued upon PT arrival. She does not tolerate much activity beyond the transfer from BSC to the chair. Patient performs LE therapeutic exercise as listed above. Patient in chair post treatment with all needs met, nursing notified, call light in reach and in the room. Rehab Potential: Guarded PT Chcf Goals Chcf Goals PT Physician Allergist Immunologist Goals Time Frame: Aug 06, 2022 Roll Left & Right (QC): 4 Sit to Lying (QC): 4 Lying-Sitting on Side/Bed(QC): 4 Sit to Stand (QC): 4 Chair/Gjj-pl-Ljmyj Xfer(QC): 4 Toilet Transfer (QC): 4 Car Transfer (QC): 4 Does the Patient Walk: Yes Walk 10 feet (QC): 3 Walk 50ft with 2 Turns (QC): 3 Does the Pt use WC or Scooter?: Yes Wheel 50 feet with 2 turns (QC: 4 Type: Manual Wheel 150 feet: 4 Type: Manual PT Plan Problem List Problem List: Activity Tolerance, Functional Strength, Safety, Balance, Gait, Transfer, Bed Mobility, ROM Treatment/Plan Treatment Plan: Continue Plan of Care Treatment Plan: Bed Mobility, Education, Functional Activity Jose, Functional Strength, Group Therapy, Gait, Safety, Therapeutic Exercise, Transfers Treatment Duration: Aug 20, 2022 Frequency: 6 times per week Estimated Hrs Per Day: .25 hour per day Patient and/or Family Agrees t: Yes Safety Risks/Education Patient Education: Transfer Techniques Teaching Recipient: Patient, Family Teaching Methods: Demonstration, Discussion Response to Teaching: Verbalize Understanding, Reinforcement Needed Discharge Recommendations Target Placement SNF as patient is unable to tolerate more than a few minutes of activity at this time. Time/GCodes Time In: 1006 Time Out: 1021 Total Billed Treatment Time: 15 Total Billed Treatment Visit, GIRISH Gonzalez PT Jul 26, 2022 10:51
[2022-07-26] MEDS ORDERED: ARTIFICAL TEARS 0.4 ML UNIT DOSE (REFRESH PLUS) OU PRN (11:30)
[2022-07-26] MEDS: ENOXAPARIN INJECTION 30 MG/0.3 ML SYR SC SCH (12:58)
[2022-07-26] MEDS ORDERED: meTOprolol TARTRATE 25 MG (LOPRESSOR) TABLET PO NR (16:15)
[2022-07-26] MEDS: DIVALPROEX EXT RELEASE 250 MG (DEPAKOTE ER) TAB PO SCH (19:34)
[2022-07-27] MEDS ORDERED: meTOprolol TARTRATE 25 MG (LOPRESSOR) TABLET PO ONE
[2022-07-27] MEDS: 1/2 NS IV SOLUTION 1,000 ML IV SCH ×2 (01:10→11:10)
[2022-07-27 04:13] VITALS: BP 141/89
[2022-07-27] MEDS: predniSONE 20 MG TAB PO SCH (06:01)
[2022-07-27 07:34] VITALS: BP 153/72
--- NOTE | 2022-07-27 08:43 | Progress Note ---
Subjective Subjective Pt is a 71 y/o female who is known to me from clinic. Masha presented to the hospital with weakness, dehydration, and muscle pain. She was found to be dehydrated and had hypertensive urgency with renal failure. Satinder is in the room with Masha, he states that she ate most of her breakfast. Masha states that her stools are soft and she had a bowel movement yesterday. She denies chest pain, shortness of breath, feels like there is mucous in her throat that occasionally causes her to cough. She reports that she is feeling a little better, her anxiety is better as well. Review of Systems General: No Chills; Fatigue, Malaise, Appetite (decreased) Pulmonary: No Dyspnea; Cough Cardiovascular: No: Chest Pain, Palpitations Gastrointestinal: Other (concern for reflux); No: Nausea, Vomiting, Abdominal Pain Musculoskeletal: leg pain Neurological: Weakness, Confusion (intermittent) pt complains about severely sensitive skin with significant pain to light touch All Other Systems Reviewed All Other Systems Reviewed: No Objective Exam Vital Signs Vital Signs Date Time Temp Pulse Resp B/P (MAP) Pulse Ox O2 Delivery O2 Flow Rate FiO2 07/27/22 07:34 35.9 74 20 153/72 (99) 94 Room Air 07/27/22 07:23 65 07/27/22 04:13 36.3 87 18 141/89 (106) 94 Room Air 07/27/22 01:00 78 07/26/22 23:50 36.5 81 20 208/122 (150) 95 Room Air 07/26/22 21:22 Room Air 07/26/22 19:35 Room Air 07/26/22 19:31 36.7 76 20 208/99 (135) 95 Room Air 07/26/22 19:00 70 07/26/22 16:06 189/121 (143) 07/26/22 15:27 36.4 73 20 203/95 (131) 97 Room Air 07/26/22 12:29 67 07/26/22 11:10 36.4 70 18 137/98 (111) 96 Room Air 07/26/22 09:26 131/98 (109) I & O 07/27/22 07:00 Intake Total 3520 ml Output Total 5150 ml Balance -1630 ml General Appearance: No Apparent Distress, WD/WN, Other (improved color and improved interaction today) HEENT: PERRL/EOMI Neck: Full Range of Motion, Non Tender, Supple Respiratory: Chest Non Tender, Lungs Clear, Normal Breath Sounds, No Accessory Muscle Use, No Respiratory Distress Cardiovascular: Regular Rate, Rhythm, No Murmur Gastrointestinal: Normal Bowel Sounds, Non Tender, Soft Rectal: Deferred Neurologic/Psychiatric: Alert, Oriented x3, No Motor/Sensory Deficits, Normal Mood/Affect, Other (RESTING TREMOR, ESPECIALLY OF ARMS) Skin: Warm/Dry, Ecchymosis (on arms, legs, hands) Results Lab Microbiology 07/24/22 Blood Culture - Preliminary, Resulted No growth 07/24/22 Urine Culture - Final, Complete NO GROWTH Assessment/Plan Assessment/Plan Admission Dx Acute on Chronic renal failure Hypertensive Urgency Dehydration Polymyalgia Rheumatica Adrenal Crisis from steroid withdrawal Chronic Bipolar Mood disorder with hx of don Recent Urinary tract infection Osteoarthritis Chronic anemia Hypercalcemia Elevated CRP Elevated Procalcitonin Elevated Depakote level Assessment and Plan Acute on Chronic renal failure Hypertensive Urgency Dehydration Polymyalgia Rheumatica Adrenal Crisis from steroid withdrawal Chronic Bipolar Mood disorder with hx of don Recent Urinary tract infection Osteoarthritis Chronic anemia Hypercalcemia Elevated CRP Elevated Procalcitonin Elevated Depakote level Hypernatremia Hyperchloremia Anemia of chronic disease Acute on Chronic renal failure with Dehydration - pt has chronic stage 3 renal failure with creatinine usually in the 1.5 range. - hydrate, repeat labs in the morning - hold potassium in fluids - on 07/24/22 change from D51/2ns+20meq to NS at 100mL/hr - on 07/25/22 due to her hypernatremia (now resolved) and hyperchloremia - we changed her fluids to 1/2 NS at 100ml/hr, will decrease rate tomorrow Hypertensive Urgency - staff to check her bp on her forearm due to pain with constriction of the bp cuff on her bicep region/upper arm. - I suspect her elevated BP is due to her skin sensitivity. BP at home is normal Polymyalgia Rheumatica - hold methotrexate for now, monitor symptoms. 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 - plan will be dexamethasone 1mg iv qid x 2 days and we will monitor her symptoms from that point with a decreased oral steroid dosing schedule. Chronic Bipolar Mood disorder with hx of don - and current Elevated Depakote level - I spoke to her psychiatrist yesterday on the phone, she was in agreement with my plan to hold the depakote for tuesday and tuesday. The psychiatrist Dr. Woodruff, specifically requested that Masha's depakote be restarted no lower than 750mg daily - she is on the depakote ER 1000mg daily at home. - check repeat depakote level tomorrow - 250mg depakote this morning and 750mg starting tonight. Recent Urinary tract infection - pt has completed antibiotic course and has a negative UA. Osteoarthritis - tylenol PRN. Chronic anemia - monitor labs, anticipate a little decline in her hgb with hydration. Hypercalcemia - improving with hydration, slightly elevated pth, vitamin d level is still pending. Generalized weakness - start physical therapy today. - I have discussed with Masha Satinder, and their Dtr Fanta - they would like to look into IRF placement if she qualifies. They would like to avoid SNF if possible. I have discussed paid caregivers - such as [facility] out of [place] - they will look into this for help with Satinder at home. DVT prophylaxis with lovenox, and scd's if pt can tolerate gi prophyalxis with ppi therapy Admission Dx Acute on Chronic renal failure Hypertensive Urgency Dehydration Polymyalgia Rheumatica Adrenal Crisis from steroid withdrawal Chronic Bipolar Mood disorder with hx of don Recent Urinary tract infection Osteoarthritis Chronic anemia Hypercalcemia Elevated CRP Elevated Procalcitonin Elevated Depakote level Clinical Quality Measures Admission Status Admission Dx Acute on Chronic renal failure Hypertensive Urgency Dehydration Polymyalgia Rheumatica Adrenal Crisis from steroid withdrawal Chronic Bipolar Mood disorder with hx of don Recent Urinary tract infection Osteoarthritis Chronic anemia Hypercalcemia Elevated CRP Elevated Procalcitonin Elevated Depakote level NAM JACQUES MD Jul 27, 2022 08:43
[2022-07-27 08:58] LABS: BASOPHILS % (AUTO) 0 % (0-10); EOSINOPHILS % (AUTO) 0 % (0-10); HEMATOCRIT 31 % (35-52); HEMOGLOBIN 10.4 g/dL (11.5-16.0); LYMPHOCYTES # (AUTO) 1.5 10^3/uL (1.0-4.0); LYMPHOCYTES % (AUTO) 17 % (12-44); MEAN CORPUSCULAR HEMOGLOBIN 35 pg (25-34); MEAN CORPUSCULAR HGB CONC 34 g/dL (32-36); MEAN CORPUSCULAR VOLUME 103 fL (80-99); MEAN PLATELET VOLUME 10.2 fL (9.0-12.2); MONOCYTES # (AUTO) 0.5 10^3/uL (0.0-1.0); MONOCYTES % (AUTO) 5 % (0-12); NEUTROPHILS # (AUTO) 6.5 10^3/uL (1.8-7.8); NEUTROPHILS % (AUTO) 74 % (42-75); PLATELET COUNT 176 10^3/uL (130-400); WHITE BLOOD COUNT 8.7 10^3/uL (4.3-11.0)
[2022-07-27] MEDS ORDERED: DIVALPROEX EXT RELEASE 250 MG (DEPAKOTE ER) TAB PO SCH (09:00)
[2022-07-27 09:27] LABS: ALBUMIN 3.2 GM/DL (3.2-4.5); BILIRUBIN,TOTAL 0.5 MG/DL (0.1-1.0); CALCIUM 11.1 MG/DL (8.5-10.1); CREATININE SERUM 1.64 MG/DL (0.60-1.30); POTASSIUM 4.4 MMOL/L (3.6-5.0); TOTAL PROTEIN 5.9 GM/DL (6.4-8.2)
[2022-07-27 09:28] LABS: CHOLESTEROL 341 MG/DL (< 200); HDL CHOLESTEROL 51 MG/DL (40-60); TRIGLYCERIDES 491 MG/DL (<150); URIC ACID 9.3 MG/DL (2.6-7.2)
[2022-07-27] MEDS: meTOprolol TARTRATE 25 MG (LOPRESSOR) TABLET PO SCH ×2 (10:09→20:46)
[2022-07-27] MEDS: PANTOPRAZOLE 40 MG (PROTONIX) TAB PO SCH (10:10)
[2022-07-27] MEDS: SENNA W/DOCUSATE (SENOKOT S) TABLET PO SCH ×2 (10:10→10:12)
--- NOTE | 2022-07-27 10:34 | Physical Therapy Daily Note ---
PT Daily Note-Current Subjective Patient states she is feeling better today. Agrees to PT. Mental Status Patient Orientation: Normal For Age Attachments: IV Transfers SCALE: Activities may be completed with or without assistive devices. 5-Ziwbibdxbn-rplrlvl completes the activity by him/herself with no assistance from a helper. 5-Set-up or Clean-up Assistance-helper sets up or cleans up; patient completes activity. [place] assists only prior to or following the activity. 4-Supervision or Touching Assistance-helper provides verbal cues and/or touching/steadying and/or contact guard assistance as patient completes activity. Assistance may be provided throughout the activity or intermittently. 3-Partial/Moderate Assistance-helper does LESS THAN HALF the effort. [place] lifts, holds or supports trunk or limbs, but provides less than half the effort. 2-Substantial/Maximal Assistance-helper does MORE THAN HALF the effort. [place] lifts or holds trunk or limbs and provides more than half the effort. 2-Wabykuekq-cvkcpd does ALL the effort. Patient does none of the effort to complete the activity. Or, the assistance of 2 or more helpers is required for the patient to complete the activity. If activity was not attempted, code reason: 7-Patient Refused. 9-Not Applicable-not attempted and the patient did not perform the activity before the current illness, exacerbation or injury. 10-Not Attempted due to Environmental Limitations-(lack of equipment, weather restraints, etc.). 88-Not Attempted due to Medical Conditions or Safety Concerns. Lying to Sitting/Side of Bed(Q: 3 Sit to Stand (QC): 3 Chair/Evy-oy-Vavus Xfer(QC): 3 Toilet Transfer (QC): 3 Weight Bearing Right Lower Extremity: Right Full Weight Bearing Left Lower Extremity: Left Full Weight Bearing Gait Training Distance: 50' x 2 Walk 10 feet (QC): 4 Walk 50 ft with 2 Turns(QC): 4 Gait Assistive Device: FWW slight shuffle gait sequence/steady rita Exercises Seated Therapy Exercises: Ankle pumps, Long arc quads, Hip flexion Seated Reps: 15 Assessment Patient improving slowly with treatment plan. PT to increase activity as tolerated by patient. Patient currently up in recliner with family present. PT Hand Ii Thermal Cutter Goals Hand Ii Thermal Cutter Goals PT Hand Ii Thermal Cutter Goals Time Frame: Aug 06, 2022 Roll Left & Right (QC): 4 Sit to Lying (QC): 4 Lying-Sitting on Side/Bed(QC): 4 Sit to Stand (QC): 4 Chair/Twl-of-Jezwf Xfer(QC): 4 Toilet Transfer (QC): 4 Car Transfer (QC): 4 Does the Patient Walk: Yes Walk 10 feet (QC): 3 Walk 50ft with 2 Turns (QC): 3 Does the Pt use WC or Scooter?: Yes Wheel 50 feet with 2 turns (QC: 4 Type: Manual Wheel 150 feet: 4 Type: Manual PT Plan Treatment/Plan Treatment Plan: Continue Plan of Care Treatment Plan: Bed Mobility, Education, Functional Activity Jose, Functional Strength, Group Therapy, Gait, Safety, Therapeutic Exercise, Transfers Treatment Duration: Aug 20, 2022 Frequency: 6 times per week Estimated Hrs Per Day: .25 hour per day Patient and/or Family Agrees t: Yes Time/GCodes Time In: 948 Time Out: 1011 Total Billed Treatment Time: 23 Total Billed Treatment 1 visit EX 8 min GT 15 min TATIANA NAPIER PT Jul 27, 2022 10:34
[2022-07-27 11:21] VITALS: BP 138/95
[2022-07-27] MEDS: ENOXAPARIN INJECTION 30 MG/0.3 ML SYR SC SCH (13:18)
[2022-07-27] MEDS ORDERED: UBID100C17 PO (15:02)
[2022-07-27] MEDS ORDERED: BRIM5DRO12 OP (15:02)
[2022-07-27] MEDS ORDERED: DOXY100T2 PO (15:02)
[2022-07-27] MEDS ORDERED: PRD20T PO (15:02)
[2022-07-27] MEDS ORDERED: ASCO100024 PO (15:02)
[2022-07-27] MEDS ORDERED: CETI10TA17 PO (15:02)
[2022-07-27] MEDS ORDERED: ACET325T38 PO (15:02)
[2022-07-27] MEDS ORDERED: LACT1CAP39 PO (15:02)
[2022-07-27 15:28] VITALS: BP 187/111
[2022-07-27] MEDS ORDERED: hydrALAZINE (APRESOLINE) 25 MG TAB PO NR (16:45)
[2022-07-27 19:34] VITALS: BP 214/103
[2022-07-27] MEDS: DIVALPROEX EXT RELEASE 250 MG (DEPAKOTE ER) TAB PO SCH (20:46)
[2022-07-28 00:59] VITALS: BP 196/107
[2022-07-28 04:56] VITALS: BP 207/93
[2022-07-28] MEDS ORDERED: hydrALAZINE (APRESOLINE) 25 MG TAB PO ONE (05:30)
[2022-07-28 05:41] LABS: BASOPHILS % (AUTO) 0 % (0-10); EOSINOPHILS # (AUTO) 0.1 10^3/uL (0.0-0.3); EOSINOPHILS % (AUTO) 1 % (0-10); HEMATOCRIT 32 % (35-52); HEMOGLOBIN 10.7 g/dL (11.5-16.0); LYMPHOCYTES # (AUTO) 1.5 10^3/uL (1.0-4.0); LYMPHOCYTES % (AUTO) 17 % (12-44); MEAN CORPUSCULAR HEMOGLOBIN 35 pg (25-34); MEAN CORPUSCULAR HGB CONC 33 g/dL (32-36); MEAN CORPUSCULAR VOLUME 105 fL (80-99); MEAN PLATELET VOLUME 10.7 fL (9.0-12.2); MONOCYTES # (AUTO) 0.6 10^3/uL (0.0-1.0); MONOCYTES % (AUTO) 7 % (0-12); NEUTROPHILS # (AUTO) 6.3 10^3/uL (1.8-7.8); NEUTROPHILS % (AUTO) 70 % (42-75); PLATELET COUNT 185 10^3/uL (130-400); WHITE BLOOD COUNT 8.9 10^3/uL (4.3-11.0)
[2022-07-28 05:52] LABS: ALBUMIN 3.4 GM/DL (3.2-4.5)
[2022-07-28 05:53] LABS: POTASSIUM 4.4 MMOL/L (3.6-5.0)
[2022-07-28 05:54] LABS: CALCIUM 12.1 MG/DL (8.5-10.1)
[2022-07-28 05:55] LABS: TOTAL PROTEIN 5.8 GM/DL (6.4-8.2)
[2022-07-28 05:57] LABS: BILIRUBIN,TOTAL 0.5 MG/DL (0.1-1.0)
[2022-07-28 05:59] LABS: CREATININE SERUM 1.72 MG/DL (0.60-1.30)
[2022-07-28 06:07] VITALS: BP 207/93
[2022-07-28] MEDS: predniSONE 20 MG TAB PO SCH (06:33)
[2022-07-28 07:47] VITALS: BP 176/115
[2022-07-28] MEDS ORDERED: METHOTREXATE 2.5 MG TAB PO SCH (08:15)
--- NOTE | 2022-07-28 08:16 | Progress Note ---
Subjective Subjective Date Seen by Provider: Jul 28, 2022 Time Seen by Provider: 08:05 Pt is a 71 y/o female who is known to me from clinic. Masha presented to the hospital with weakness, dehydration, and muscle pain. She was found to be dehydrated and had hypertensive urgency with renal failure. Satinder is in the room with Masha, he states that she ate most of her breakfast. Masha states that her stools are soft and she had a bowel movement yesterday. She denies chest pain, shortness of breath, feels like there is mucous in her throat that occasionally causes her to cough. She reports that she is feeling a little better, her anxiety is better as well. Review of Systems General: No Chills; Fatigue, Malaise, Appetite (decreased) Pulmonary: No Dyspnea; Cough Cardiovascular: No: Chest Pain, Palpitations Gastrointestinal: Other (concern for reflux); No: Nausea, Vomiting, Abdominal Pain Musculoskeletal: leg pain Neurological: Weakness, Confusion (intermittent) pt complains about severely sensitive skin with significant pain to light touch All Other Systems Reviewed All Other Systems Reviewed: No Objective Exam Vital Signs Vital Signs Date Time Temp Pulse Resp B/P (MAP) Pulse Ox O2 Delivery O2 Flow Rate FiO2 07/28/22 07:47 37.3 104 18 176/115 (135) 96 Room Air 07/28/22 07:05 96 07/28/22 06:07 36.2 90 94 07/28/22 04:56 36.2 90 18 207/93 (131) 94 Room Air 07/28/22 01:00 77 07/28/22 00:59 36.4 78 18 196/107 (136) 94 Room Air 07/28/22 00:56 96 Room Air 07/27/22 20:59 Room Air 07/27/22 19:34 36.4 76 18 214/103 (140) 97 Room Air 07/27/22 19:00 88 07/27/22 15:28 36.4 77 18 187/111 (136) 95 Room Air 07/27/22 13:00 70 07/27/22 11:21 36.0 77 20 138/95 (109) 97 Room Air I & O 07/28/22 07:00 Intake Total 2107 ml Output Total 2975 ml Balance -868 ml General Appearance: No Apparent Distress, WD/WN, Other (improved color and improved interaction today) HEENT: PERRL/EOMI Neck: Full Range of Motion, Non Tender, Supple Respiratory: Chest Non Tender, Lungs Clear, Normal Breath Sounds, No Accessory Muscle Use, No Respiratory Distress Cardiovascular: Regular Rate, Rhythm, No Murmur Gastrointestinal: Normal Bowel Sounds, Non Tender, Soft Rectal: Deferred Neurologic/Psychiatric: Alert, Oriented x3, No Motor/Sensory Deficits, Normal Mood/Affect, Other (RESTING TREMOR, ESPECIALLY OF ARMS) Skin: Warm/Dry, Ecchymosis (on arms, legs, hands) Results Lab Laboratory Tests 07/27/22 08:50: White Blood Count 8.7, Red Blood Count 2.97L, Hemoglobin 10.4L, Hematocrit 31L, Mean Corpuscular Volume 103H, Mean Corpuscular Hemoglobin 35H, Mean Corpuscular Hemoglobin Concent 34, Red Cell Distribution Width 16.1H, Platelet Count 176, Mean Platelet Volume 10.2, Immature Granulocyte % (Auto) 4, Neutrophils (%) (Auto) 74, Lymphocytes (%) (Auto) 17, Monocytes (%) (Auto) 5, Eosinophils (%) (Auto) 0, Basophils (%) (Auto) 0, Neutrophils # (Auto) 6.5, Lymphocytes # (Auto) 1.5, Monocytes # (Auto) 0.5, Eosinophils # (Auto) 0.0, Basophils # (Auto) 0.0, Immature Granulocyte # (Auto) 0.3H, Sodium Level 142, Potassium Level 4.4, Chloride Level 112H, Carbon Dioxide Level 17L, Anion Gap 13, Blood Urea Nitrogen 48H, Creatinine 1.64H, Estimat Glomerular Filtration Rate 33, BUN/Creatinine Ratio 29, Glucose Level 137H, Mean Blood Glucose 117, Hemoglobin A1c 5.7H, Uric Acid 9.3H, Calcium Level 11.1H, Corrected Calcium 11.7H, Iron Level 87, Total Iron Binding Capacity 270, Unsaturated Iron Binding Capacity 183, Transferrin % Saturation 32, Ferritin 1059.8H, Total Bilirubin 0.5, Aspartate Amino Transf (AST/SGOT) 30, Alanine Aminotransferase (ALT/SGPT) 32, Alkaline Phosphatase 50, Total Protein 5.9L, Albumin 3.2, Triglycerides Level 491H, Cholesterol Level 341H, LDL Cholesterol Direct 226H, VLDL Cholesterol , HDL Cholesterol 51, Parathyroid Hormone (Intact) 7.5L, Calcium (PTH Intact) 11.2H 9/6/22 20:26: Valproic Acid (Depakene) Level 40.4L 07/28/22 05:15: Sodium Level 144, Potassium Level 4.4, Chloride Level 110H, Carbon Dioxide Level 19L, Anion Gap 15H, Blood Urea Nitrogen 61H, Creatinine 1.72H, Estimat Glomerular Filtration Rate 31, BUN/Creatinine Ratio 35, Glucose Level 86, Calcium Level 12.1H, Corrected Calcium 12.6H, Total Bilirubin 0.5, Aspartate Amino Transf (AST/SGOT) 32, Alanine Aminotransferase (ALT/SGPT) 49, Alkaline Phosphatase 56, Total Protein 5.8L, Albumin 3.4 07/28/22 05:31: White Blood Count 8.9, Red Blood Count 3.04L, Hemoglobin 10.7L, Hematocrit 32L, Mean Corpuscular Volume 105H, Mean Corpuscular Hemoglobin 35H, Mean Corpuscular Hemoglobin Concent 33, Red Cell Distribution Width 16.5H, Platelet Count 185, Mean Platelet Volume 10.7, Immature Granulocyte % (Auto) 5, Neutrophils (%) (Auto) 70, Lymphocytes (%) (Auto) 17, Monocytes (%) (Auto) 7, Eosinophils (%) (Auto) 1, Basophils (%) (Auto) 0, Neutrophils # (Auto) 6.3, Lymphocytes # (Auto) 1.5, Monocytes # (Auto) 0.6, Eosinophils # (Auto) 0.1, Basophils # (Auto) 0.0, Immature Granulocyte # (Auto) 0.4H Microbiology 07/24/22 Blood Culture - Preliminary, Resulted No growth 07/24/22 Urine Culture - Final, Complete NO GROWTH Assessment/Plan Assessment/Plan Admission Dx Acute on Chronic renal failure Hypertensive Urgency Dehydration Polymyalgia Rheumatica Adrenal Crisis from steroid withdrawal Chronic Bipolar Mood disorder with hx of don Recent Urinary tract infection Osteoarthritis Chronic anemia Hypercalcemia Elevated CRP Elevated Procalcitonin Elevated Depakote level Assessment and Plan Acute on Chronic renal failure Hypertensive Urgency Dehydration Polymyalgia Rheumatica Adrenal Crisis from steroid withdrawal Chronic Bipolar Mood disorder with hx of don Recent Urinary tract infection Osteoarthritis Chronic anemia Hypercalcemia Elevated CRP Elevated Procalcitonin Elevated Depakote level Hypernatremia Hyperchloremia Anemia of chronic disease Acute on Chronic renal failure with Dehydration - pt has chronic stage 3 renal failure with creatinine usually in the 1.5 range. - hydrate, repeat labs in the morning - hold potassium in fluids - on 07/24/22 change from D51/2ns+20meq to NS at 100mL/hr - on 07/25/22 due to her hypernatremia (now resolved) and hyperchloremia - we changed her fluids to 1/2 NS at 100ml/hr, will decrease rate tomorrow Hypertensive Urgency - staff to check her bp on her forearm due to pain with constriction of the bp cuff on her bicep region/upper arm. - I suspect her elevated BP is due to her skin sensitivity. BP at home is normal Polymyalgia Rheumatica - hold methotrexate for now, monitor symptoms. 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 - plan will be dexamethasone 1mg iv qid x 2 days and we will monitor her symptoms from that point with a decreased oral steroid dosing schedule. Chronic Bipolar Mood disorder with hx of don - and current Elevated Depakote level - I spoke to her psychiatrist yesterday on the phone, she was in agreement with my plan to hold the depakote for tuesday and tuesday. The psychiatrist Dr. Woodruff, specifically requested that Masha's depakote be restarted no lower than 750mg daily - she is on the depakote ER 1000mg daily at home. - check repeat depakote level tomorrow - 250mg depakote this morning and 750mg starting tonight. Recent Urinary tract infection - pt has completed antibiotic course and has a negative UA. Osteoarthritis - tylenol PRN. Chronic anemia - monitor labs, anticipate a little decline in her hgb with hydration. Hypercalcemia - improving with hydration, slightly elevated pth, vitamin d level is still pending. Generalized weakness - start physical therapy today. - I have discussed with Masha Satinder, and their Dtr Fanta - they would like to look into IRF placement if she qualifies. They would like to avoid SNF if possible. I have discussed paid caregivers - such as [facility] out of [place] - they will look into this for help with Satinder at home. DVT prophylaxis with lovenox, and scd's if pt can tolerate gi prophyalxis with ppi therapy Admission Dx Acute on Chronic renal failure Hypertensive Urgency Dehydration Polymyalgia Rheumatica Adrenal Crisis from steroid withdrawal Chronic Bipolar Mood disorder with hx of don Recent Urinary tract infection Osteoarthritis Chronic anemia Hypercalcemia Elevated CRP Elevated Procalcitonin Elevated Depakote level Clinical Quality Measures Admission Status Admission Dx Acute on Chronic renal failure Hypertensive Urgency Dehydration Polymyalgia Rheumatica Adrenal Crisis from steroid withdrawal Chronic Bipolar Mood disorder with hx of don Recent Urinary tract infection Osteoarthritis Chronic anemia Hypercalcemia Elevated CRP Elevated Procalcitonin Elevated Depakote level NAM JACQUES MD Jul 28, 2022 08:16
[2022-07-28] MEDS: PANTOPRAZOLE 40 MG (PROTONIX) TAB PO SCH (08:33)
[2022-07-28] MEDS: 1/2 NS IV SOLUTION 1,000 ML IV SCH (08:34)
[2022-07-28] MEDS: meTOprolol TARTRATE 25 MG (LOPRESSOR) TABLET PO SCH (08:35)
[2022-07-28] MEDS ORDERED: CYANOCOBALAMIN 1,000 MCG (VITAMIN B-12) TABLET PO SCH (09:00)
[2022-07-28] MEDS ORDERED: FOLIC ACID 1 MG TAB PO SCH (09:00)
[2022-07-28] MEDS ORDERED: VITAMIN D3 25 MCG (1,000 UNITS) TABLET PO SCH (09:00)
--- NOTE | 2022-07-28 10:38 | Physical Therapy Daily Note ---
PT Daily Note-Current Subjective Pt in bed at bedside. Pt. states she wants to get up and move but is i such pain she is not sure she can. All through all attempts to move and for exercise pt c/o pain 10/10 and resists assist etc Pain Numeric Pain Scale: 10-Worst Possible Pain Location: Medial Location Body Site: Back (and entire body) Pain Description: Burning Comment: pain with touch to an aspect of her body, exquisite jose in back, neck, ankl Mental Status Patient Orientation: Person, Place, Situation Attachments: Other-See Comments (pure wick) Transfers SCALE: Activities may be completed with or without assistive devices. 2-Petuhcoqmb-aduafvz completes the activity by him/herself with no assistance from a helper. 5-Set-up or Clean-up Assistance-helper sets up or cleans up; patient completes activity. [place] assists only prior to or following the activity. 4-Supervision or Touching Assistance-helper provides verbal cues and/or touching/steadying and/or contact guard assistance as patient completes activity. Assistance may be provided throughout the activity or intermittently. 3-Partial/Moderate Assistance-helper does LESS THAN HALF the effort. [place] lifts, holds or supports trunk or limbs, but provides less than half the effort. 2-Substantial/Maximal Assistance-helper does MORE THAN HALF the effort. [place] lifts or holds trunk or limbs and provides more than half the effort. 0-Tsqjodvvw-btpvse does ALL the effort. Patient does none of the effort to complete the activity. Or, the assistance of 2 or more helpers is required for the patient to complete the activity. If activity was not attempted, code reason: 7-Patient Refused. 9-Not Applicable-not attempted and the patient did not perform the activity before the current illness, exacerbation or injury. 10-Not Attempted due to Environmental Limitations-(lack of equipment, weather restraints, etc.). 88-Not Attempted due to Medical Conditions or Safety Concerns. rolling max, sup to side to sit max, sit to stand with bed level up mod assist, sit to sup mod assist, TRF from sup to sit took considerable time as this ACOUSTIC SENSOR OPERATOR invited pt. to move herself vs this ACOUSTIC SENSOR OPERATOR moving her as this apparently considerable pain, however pt. also resists this Weight Bearing Right Lower Extremity: Right Full Weight Bearing Left Lower Extremity: Left Full Weight Bearing Gait Training Gait Assistive Device: FWW side steps 5 feet with mod assist as pt is very retropulsive and eventually sits back down multiple times and then declines to try gait furthr Exercises Supine Ex: Ankle pumps, Quad Set, Rolling, Heel Slides, Hip abd/add Supine Reps: 8 (all assisted) Treatments rolling, bed TRFs , sit to stand, therex Assessment Current Status: Poor Progress pain , fear and resistance greatly limit function and Rx participation PT Shell Assembler Goals Mcc Goals PT Mcc Goals Time Frame: Aug 06, 2022 Roll Left & Right (QC): 4 Sit to Lying (QC): 4 Lying-Sitting on Side/Bed(QC): 4 Sit to Stand (QC): 4 Chair/Enh-ur-Mjwex Xfer(QC): 4 Toilet Transfer (QC): 4 Car Transfer (QC): 4 Does the Patient Walk: Yes Walk 10 feet (QC): 3 Walk 50ft with 2 Turns (QC): 3 Does the Pt use WC or Scooter?: Yes Wheel 50 feet with 2 turns (QC: 4 Type: Manual Wheel 150 feet: 4 Type: Manual PT Plan Treatment/Plan Treatment Plan: Continue Plan of Care Treatment Plan: Bed Mobility, Education, Functional Activity Jose, Functional Strength, Group Therapy, Gait, Safety, Therapeutic Exercise, Transfers Treatment Duration: Aug 20, 2022 Frequency: 6 times per week Estimated Hrs Per Day: .25 hour per day Patient and/or Family Agrees t: Yes Safety Risks/Education Patient Education: Transfer Techniques, Reviewed Precautions, Correct Positioning, Safety Issues Teaching Recipient: Patient Teaching Methods: Demonstration, Discussion Response to Teaching: Verbalize Understanding, Unable to Return Demonstration, Reinforcement Needed Time/GCodes Time In: 945 Time Out: 1030 Total Billed Treatment Time: 45 Total Billed Treatment 1,EX10m,FA35m PIERRE GONZALES ACOUSTIC SENSOR OPERATOR Jul 28, 2022 10:38
[2022-07-28 11:22] VITALS: BP 160/99
[2022-07-28] MEDS ORDERED: HYDR-3922 PO (11:58)
[2022-07-28] MEDS ORDERED: PRD20T PO (11:58)
[2022-07-28] MEDS ORDERED: PANT40TA52 PO (11:58)
[2022-07-28] MEDS ORDERED: DIVA250T12 PO (11:58)
--- NOTE | 2022-07-28 12:02 | Discharge Inst-Simple/Standard ---
Discharge Inst-Standard Reconcile Patient Problems Problems Reviewed?: Yes Discharge Medications New, Converted or Re-Newed RX: Other Patient Instructions/Follow Up Plan of Care/Instructions/FU: 3 wks [facility] Activity as Tolerated: Yes Discharge Diet: Regular Diet NAM JACQUES MD Jul 28, 2022 12:02
--- NOTE | 2022-07-28 12:10 | Progress Note ---
MELLISAFRANK 07/28/22 1210: Progress Note CC: Weakness, Steroid induced myopathy HPI: Masha is a 71yo female with polymyalgia rheumatica which has been managed with steroids for years. She started methotrexate in April and was tapered off steroids a week ago. She was walking with a cane and improving to the point where she thought she may be able to stop using the cane. However, after tapering off the steroids, she started to feel weak so she was prescribed a 3day steroid burst. A few days into the steroid burst she became so weak that her was no longer able to help her around by himself. He brought who to the ER where she was diagnosed with acute on chronic renal failure, dehydration and hypertensive crisis. She has been working with PT for the last 3 days and was making progress until today she said she had a bad day. Her pain is currently be ing managed well, she feels like her cognition is improving but she is still very weak. 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 Allergies: Allopurinol, Cephalexin, Clonazepam, Enalaprilat, Hydroxychloroquine, Lorazepam, Sulfamethoxazole, Trimethoprim Home Meds Active Divalproex Sodium ER (Divalproex Sodium) 250 Mg Tab.er.24h 750 Mg PO HS Prednisone 20 Mg Tab 20 Mg PO DAILY@1999 Pantoprazole Sodium 40 Mg Tablet.dr 40 Mg PO DAILY Hydralazine HCl 10 Mg Tablet 10 Mg PO TID Reported Tylenol (Acetaminophen) 325 Mg Tablet 650 Mg PO Q6H PRN Vitamin C (Ascorbic Acid) 1,000 Mg Tablet 1,000 Mg PO HS Culturelle (Lactobacillus Rhamnosus GG) 10 Billion Cell Capsule 1 Each PO BID Coq-10 (Ubidecarenone) 100 Mg Capsule 100 Mg PO DAILY Cetirizine HCl 10 Mg Tablet 10 Mg PO DAILY Alphagan P (Brimonidine Tartrate) 0.15 % Drops 1 Drop OP BID Vitamin D3 (Cholecalciferol (Vitamin D3)) 50 Mcg (2000 Unit) Tablet 50 Mcg PO BID Vitamin B-12 (Cyanocobalamin (Vitamin B-12)) 1,000 Mcg Capsule 1,000 Mcg PO DAILY Metoprolol Tartrate 25 Mg Tablet 25 Mg PO BID Glucosamine Chondroitin Tab (Gluc Conner/Chondro Conner A/Vit C/Mn) 750 Mg-600 Mg-55 Mg- 5 Mg Tablet 1 Each PO BID Folic Acid 1 Mg Tablet 1 Mg PO DAILY Methotrexate (Methotrexate Sodium) 2.5 Mg Tablet 10 Mg PO TUESDAY TAKES 4 (2.5MG) TABLETS ON TUESDAYS Ferosul (Ferrous Sulfate) 325 Mg (65 Mg Iron) Tablet 325 Mg PO HS ROS: Denies any sweats, chills, nausea or vomiting Denies any vision changes, light headedness or dizziness Denies chest pain or palpitations Denies shortness of breath Positive for generalized muscle weakness Positive for chronic bruising Exam General: pt laying in bed, appeared pale and weak. Speech is slow with long pauses HEENT: PERRL/EOMI, moist mucus membranes Cardiovascular: Tachycardia, no murmors, normal peripheral pulses Respiratory: Lungs CTAB, no accessory muscle use, no respiratory distress GI: Abdomen soft, non tender, non distended. Normal bowel sounds x4 quadrants Integumentary: Multiple bruises in various stages of healing on all extremities (secondary to chronic steroid use). Skin is very sensitive to the touch Neuro: Patient alert, oriented x3 with normal mood/affect. Moderate resting tremor of LUE. Laboratory Tests Test 07/27/22 20:26 07/28/22 05:15 07/28/22 05:31 Range/Units Valproic Acid (Depakene) Level 40.4 L 50.0-100.0 UG/ML Sodium Level 144 135-145 MMOL/L Potassium Level 4.4 3.6-5.0 MMOL/L Chloride Level 110 H 98-107 MMOL/L Carbon Dioxide Level 19 L 21-32 MMOL/L Anion Gap 15 H 5-14 MMOL/L Blood Urea Nitrogen 61 H 7-18 MG/DL Creatinine 1.72 H 0.60-1.30 MG/DL Estimat Glomerular Filtration Rate 31 BUN/Creatinine Ratio 35 Glucose Level 86 70-105 MG/DL Calcium Level 12.1 H 8.5-10.1 MG/DL Corrected Calcium 12.6 H 8.5-10.1 MG/DL Total Bilirubin 0.5 0.1-1.0 MG/DL Aspartate Amino Transf (AST/SGOT) 32 5-34 U/L Alanine Aminotransferase (ALT/SGPT) 49 0-55 U/L Alkaline Phosphatase 56 40-136 U/L Total Protein 5.8 L 6.4-8.2 GM/DL Albumin 3.4 3.2-4.5 GM/DL White Blood Count 8.9 4.3-11.0 10^3/uL Red Blood Count 3.04 L 3.80-5.11 10^6/uL Hemoglobin 10.7 L 11.5-16.0 g/dL Hematocrit 32 L 35-52 % Mean Corpuscular Volume 105 H 80-99 fL Mean Corpuscular Hemoglobin 35 H 25-34 pg Mean Corpuscular Hemoglobin Concent 33 32-36 g/dL Red Cell Distribution Width 16.5 H 10.0-14.5 % Platelet Count 185 130-400 10^3/uL Mean Platelet Volume 10.7 9.0-12.2 fL Immature Granulocyte % (Auto) 5 % Neutrophils (%) (Auto) 70 42-75 % Lymphocytes (%) (Auto) 17 12-44 % Monocytes (%) (Auto) 7 0-12 % Eosinophils (%) (Auto) 1 0-10 % Basophils (%) (Auto) 0 0-10 % Neutrophils # (Auto) 6.3 1.8-7.8 10^3/uL Lymphocytes # (Auto) 1.5 1.0-4.0 10^3/uL Monocytes # (Auto) 0.6 0.0-1.0 10^3/uL Eosinophils # (Auto) 0.1 0.0-0.3 10^3/uL Basophils # (Auto) 0.0 0.0-0.1 10^3/uL Immature Granulocyte # (Auto) 0.4 H 0.0-0.1 10^3/uL Assessment/Plan: Steroid induced myopathy Currently tapering off prednisone. Down to 20mg today Acute on Chronic renal failure with Dehydration Pt has stage 3 CKD w/baseline creatinine around 1.5 Creatinine today was 1.72 Continue IV fluids, correct electrolyte abnormalities as needed Hypertensive Urgency Pt still hypertensive w/SBP over 200 as recent as this morning Currently on Lopressor and Hydralazine Polymyalgia Rheumatica Holding methotrexate for now Chronic Bipolar Mood disorder with hx of don Pt had supratheraeutic depakote level on admission. Depakote was held tuesday/tuesday and restarted yesterday. Currently on 750mg depakote. Blood levels were subtherapeutic yesterday, will recheck this afternoon Hyperlipidemia Holding statin for now Osteoarthritis tylenol PRN. Chronic anemia Hgb stable, 11.7 today. Will continue to monitor Hypercalcemia Still mildly elevated today at 12.7 Expect improvement with continue hydration and improving kidney fxn Generalized weakness Pt to be moved to IRC today. Will begin aggressive PT/OT starting tomorrow DVT PPX: Lovenox, SCDs if pt can tolerate GI PPX: PPI SHIRLEY TORREZ DO 07/28/22 2030: Supervisory-Addendum Brief Verification & Attestation Participated in pt care: history, MDM, physical Personally performed: exam, history, MDM, supervision of care Care discussed with: Medical Student Procedures: n/a Results interpretation: Verified all documentation Verification and Attestation of Medical Student E/M Service A medical student performed and documented this service in my presence. I reviewed and verified all information documented by the medical student and made modifications to such information, when appropriate. I personally performed the physical exam and medical decision making. Shirley Torrez, Jul 28, 2022,20:30 FRANK PAK Jul 28, 2022 12:10 SHIRLEY TORREZ DO Jul 28, 2022 20:30
[2022-07-28] MEDS ORDERED: SENNA W/DOCUSATE (SENOKOT S) TABLET PO PRN (21:00)
[2022-07-29] MEDS ORDERED: predniSONE 20 MG TAB PO SCH (20:00)
== END 2022-07-28 13:04 | DRG 683 ==
LOC: EDUNIT# 04:16 → ER 04:17 → 4TH 05:30
PROVIDERS: ADMIT Family Medicine; ATTEND Family Medicine
DX: N17.9 Acute kidney failure, unspecified (principal); E27.2 Addisonian crisis; G72.0 Drug-induced myopathy; T38.0X5A Adverse effect of glucocorticoids and synthetic analogues, initial encounter; N18.30 Chronic kidney disease, stage 3 unspecified; I16.0 Hypertensive urgency; Z20.822 Contact with and (suspected) exposure to COVID-19; M35.3 Polymyalgia rheumatica; F31.9 Bipolar disorder, unspecified; E78.5 Hyperlipidemia, unspecified; M19.90 Unspecified osteoarthritis, unspecified site; D64.9 Anemia, unspecified; R53.1 Weakness; R73.9 Hyperglycemia, unspecified; E86.0 Dehydration; I25.10 Atherosclerotic heart disease of native coronary artery without angina pectoris; E78.00 Pure hypercholesterolemia, unspecified; I12.9 Hypertensive chronic kidney disease with stage 1 through stage 4 chronic kidney disease, or unspecified chronic kidney disease; F41.9 Anxiety disorder, unspecified
CPT/HCPCS: 36415; 51701; 70450; 71045; 80053; 80061; 80164; 81000; 82306; 82728; 83036; 83540; 83550; 83605; 83735; 83970; 84145; 84443; 84550; 85025; 85027; 85652; 86141; 87040; 87088; 87636; 93041

== ENCOUNTER 2022-07-28 09:33 | Inpatient (IN) | payer MEDICARE, BC ==
[~2022-07-28] VITALS: Ht 167.7 cm; Wt 73.3 kg
[~2022-07-28 09:33] MED LIST changes: +ACET-2422 PO; +ACET325T38 PO; +ASCO100024 PO; +BRIM5DRO12 OP; +CARB10DR5 OP; +CETI10TA17 PO; +CHOL200052 PO; +CYAN-23 PO; +DIVA-76 PO; +DOXY100T2; +DOXY100T2 PO; +FERR325T24 PO; +FOLI1TAB33 PO; +GLUC1TAB21 PO; +LACT1CAP39 PO; +METH2.5T PO; +OMEP40CA6; +OMEP40CA6 PO; +PRD20T; +PRD20T PO; +PRED5TAB PO
[2022-07-28] MEDS ORDERED: LOPERAMIDE 2 MG (IMODIUM) TABLET PO PRN (11:15)
[2022-07-28] MEDS ORDERED: guaiFENesin/CODEINE (ROBITUSSIN AC) 10ML UDC PO PRN (11:15)
[2022-07-28] MEDS ORDERED: BISACODYL 10 MG SUPP (DULCOLAX) PR PRN (11:15)
[2022-07-28] MEDS ORDERED: ONDANSETRON 4 MG (ZOFRAN) ORAL DISSOLVE TAB PO PRN (11:15)
[2022-07-28] MEDS ORDERED: DOCUSATE SODIUM 100 MG (COLACE) CAP PO PRN (11:15)
[2022-07-28] MEDS ORDERED: ALPRAZolam 0.25 MG (XANAX) TAB PO PRN (11:15)
[2022-07-28] MEDS ORDERED: CALCIUM CARBONATE 500 MG (TUMS) TAB.CHEW PO PRN (11:15)
[2022-07-28] MEDS ORDERED: LACTULOSE SYRUP 10GM/15ML (ENULOSE) 30ML UDC PO PRN (11:15)
[2022-07-28] MEDS ORDERED: diphenhydrAMINE 25 MG TAB (BENADRYL) PO PRN (11:15)
[2022-07-28] MEDS ORDERED: ACETAMINOPHEN 325 MG TABLET PO PRN (11:15)
[2022-07-28] MEDS ORDERED: FLEET ENEMA ADULT 1 EA BTL PR PRN (11:15)
[2022-07-28] MEDS ORDERED: MELATONIN 3 MG TABLET PO PRN (11:15)
[2022-07-28] MEDS ORDERED: DIVA250T12 PO (11:58)
[2022-07-28] MEDS ORDERED: HYDR-3922 PO (11:58)
[2022-07-28] MEDS ORDERED: PRD20T PO (11:58)
[2022-07-28] MEDS ORDERED: PANT40TA52 PO (11:58)
--- NOTE | 2022-07-28 13:53 | Physical Therapy Evaluation ---
PT Evaluation-General Medical Diagnosis Admission Date Jul 28, 2022 at 13:00 Medical Diagnosis: Polymyalgic Rheumatica, Dehydrated with acute on chronic renal failure Onset Date: Jul 24, 2022 Therapy Diagnosis Therapy Diagnosis: impaired mobility Height/Weight Height (Feet): 5 Height (Inches): 6.00 Weight (Pounds): 150 Weight (Ounces): 0.0 Referral Physician: Shirley Pandya DO Reason for Referral: Evaluation/Treatment Medical History Additional Medical History Past Medical History Surgeries: Breast, Eye Surgery, Hysterectomy, Renal Currently Using CPAP: No Currently Using BIPAP: No Coronary Artery Disease, Heart Murmur, High Cholesterol, Hypertension Sexually Transmitted Disease: No HIV/AIDS: No Renal Failure, UTI-Chronic Polyps Arthritis, Fractures Are Your Blood Sugars Over 250: No Cataract Loss of Vision: Denies Hearing Impairment: Denies Anxiety, Bipolar, Depression Blood Disorders: No Reviewed History: Yes Social History Home: Single Level Current Living Status: Spouse Entry Into Home: Level Entry Prior Prior Level of Function SCALE: Activities may be completed with or without assistive devices. 6-Qmipmriacp-ryxwzko completes the activity by him/herself with no assistance from a helper. 5-Set-up or Clean-up Assistance-helper sets up or cleans up; patient completes activity. [place] assists only prior to or following the activity. 4-Supervision or Touching Assistance-helper provides verbal cues and/or touching/steadying and/or contact guard assistance as patient completes activity. Assistance may be provided throughout the activity or intermittently. 3-Partial/Moderate Assistance-helper does LESS THAN HALF the effort. [place] lifts, holds or supports trunk or limbs, but provides less than half the effort. 2-Substantial/Maximal Assistance-helper does MORE THAN HALF the effort. [place] lifts or holds trunk or limbs and provides more than half the effort. 5-Pedsgwrdd-ucwect does ALL the effort. Patient does none of the effort to complete the activity. Or, the assistance of 2 or more helpers is required for the patient to complete the activity. If activity was not attempted, code reason: 7-Patient Refused. 9-Not Applicable-not attempted and the patient did not perform the activity before the current illness, exacerbation or injury. 10-Not Attempted due to Environmental Limitations-(lack of equipment, weather restraints, etc.). 88-Not Attempted due to Medical Conditions or Safety Concerns. Bed Mobility: 6 Transfers (B,C,W/C): 6 Gait: 6 Indoor Mobility (Ambulation): Independent Prior Devices Use: Walker Patient states she was walking good enough with the walker that she was about to get rid of the walker. PT Evaluation-Current Subjective Patient in recliner pre tx, agrees to PT, has no pain at rest but severe pain in legs with touching or grabbing. Will be co-treating due to poor patient mobility, strength, endurance, balance, pain with activity, coordinate UE and LE during activity, safety and reduce risk of falls. Pt/Family Goals to be independent at home Objective Patient Orientation: Person, Place, Situation Attachments: IV ROM/Strength ROM Lower Extremities WNL Strength Lower Extremities not tested due to pain/sensitivity Sensory Hearing: Functional Sensation Right Lower Extremit: Intact Sensation Left Lower Extremity: Intact Transfers Roll Left & Right (QC): 2 Sit to Lying (QC): 2 Lying to Sitting/Side of Bed(Q: 2 Sit to Stand (QC): 3 Chair/Nob-kh-Umhtm Xfer(QC): 3 Toilet Transfer (QC): 3 Car Transfer (QC): 3 Patient performs rolling and supine <-> sit with max assist, sit <-> stand mod assist, transfers min assist, car transfer mod assist. Patient needs cues for safety and hand placement almost every time. Patient is retropulsive upon standing and remains that way until she shifts her weight forward and starts walking. Gait Does the Patient Walk?: Yes Mode of Locomotion: Walk Anticipated Mode of Locomotion: Walk Walk 10 feet (QC): 3 Walk 50 ft with 2 Turns(QC): 88 Walk 150 ft (QC): 88 Walking 10ft/uneven surface-QC: 3 Distance: 20', 15' Gait Assistive Device: FWW Comments/Gait Description Patient can ambulate 20' with a rolling walker with min assist (including 10' over an uneven surface), patient ambulates very slowly, shuffling steps, poor foot clearance, needs assist guiding walker Wheelchair Training Wheel 50 ft with 2 turns (QC): 2 Wheel 150 ft (QC): 2 Type of Wheelchair: Manual patient can assist minimally with BUE Stairs 1 Step (curb) (QC): 88 4 Steps (QC): 88 12 Steps (QC): 88 Balance Sitting Static: Fair Sitting Dynamic: Fair Standing Static: Poor Standing Dynamic: Poor Picking up an Object (QC): 88 (patient cannot do even with a head up operator helper due to retropulsion when standing) Treatment PT performed bed mobility and transfers, ambulation, WC mobility, positioning and safety during ADL's at sink, OT performed ADL's, UE positioning and safety during activity. Assessment/Needs Patient in restroom post tx, MILLER KILN DRIED SALT taking over. Patient has impaired mobility, strength, endurance, balance. She can only ambulate about 15-20 feet at a time and quickly fatigues, retropulsive when standing. Rehab Potential: Fair PT Short Term Goals Short Term Goals Time Frame: Aug 04, 2022 Roll Left & Right: 3 (Nitesh) Sit to lyin (Ileana) Lying to sitting on side of be: 3 (Ileana) Sit to stand: 3 (Ileana) Chair/dnz-mv-macxk transfer: 4 (CGA) Walk 10 feet: 4 (CGA) Walk 50 feet with two turns: 4 (CGA) PT Skin Carver Goals Mcc Goals PT Skin Carver Goals Time Frame: Aug 18, 2022 Roll Left & Right (QC): 4 (SBA) Sit to Lying (QC): 4 (SBA) Lying-Sitting on Side/Bed(QC): 4 (SBA) Sit to Stand (QC): 4 (SBA) Chair/Qdb-iq-Ursyr Xfer(QC): 4 (BA) Toilet Transfer (QC): 4 (SBA) Car Transfer (QC): 4 (SBA) Does the Patient Walk: Yes Walk 10 feet (QC): 4 (SBA) Walk 50ft with 2 Turns (QC): 4 (SBA) Walk 150 ft (QC): 4 (SBA) Walking 10ft on Uneven Surface: 4 (SBA) 1 Step (curb) (QC): 4 (CGA) 4 Steps (QC): 4 (CGA) 12 Steps (QC): 88 Picking up an Object (QC): 4 (SBA using head up operator helper) Wheel 50 feet with 2 turns (QC: 9 Wheel 150 feet: 9 PT Plan Problem List Problem List: Activity Tolerance, Functional Strength, Safety, Balance, Gait, Transfer, Bed Mobility, ROM Treatment/Plan Treatment Plan: Continue Plan of Care Treatment Plan: Bed Mobility, Education, Functional Activity Jose, Functional Strength, Group Therapy, Gait, Safety, Therapeutic Exercise, Transfers Treatment Duration: Aug 04, 2022 Frequency: Modified Program (IRF) (04/06) Estimated Hrs Per Day: 1.5 hours per day Patient and/or Family Agrees t: Yes Safety Risks/Education Patient Education: Gait Training, Transfer Techniques, Correct Positioning, W/C Management, Safety Issues Teaching Recipient: Patient Teaching Methods: Demonstration, Discussion Response to Teaching: Reinforcement Needed Discharge Recommendations Plan Patient will perform bed mobility and transfer training, balance and endurance training, functional strengthening, stair training, gait training, and education, to improve functional mobility and independence at home. Therapy Discharge Recommendati: Scheduled Assistance, Home & Family, Post Acute PT Time/GCodes Time In: 1300 Time Out: 1345 Total Billed Treatment Time: 35 Total Billed Treatment 1 visit EVM 10' FA 25' (only charge 1 unit) PT eval from [id number], OT eval from [id number], co-treat from [id number] SURINDER CONTRERAS PT Jul 28, 2022 13:53
--- NOTE | 2022-07-28 14:52 | Occupational Therapy Eval ---
OT Evaluation-General/PLF Medical Diagnosis Admission Date Jul 28, 2022 at 13:00 Medical Diagnosis: Polymyalgic Rheumatica, Steroid induced myopathy Onset Date: Jul 24, 2022 Therapy Diagnosis Therapy Diagnosis: Impaired ADLs, strength and endurance Height/Weight Height (Feet): 5 Height (Inches): 6.00 Weight (Pounds): 150 Weight (Ounces): 0.0 Precautions Precautions/Isolations: Fall Prevention, Standard Precautions Safety Interventions: None Referral Physician: Shirley Pandya DO Referral Reason: Evaluation/Treatment Medical History Pertinent Medical History: OA Additional Medical History Chronic Renal Failure Current History Pt arrived to ER with complaints of weakness, and found to be dehydrated with hypertensive urgency. Pt lives with spouse in a single story home. Spouse assists with all ADLs, including bathing, dressing, toileting, footwear, and eating. Spouse performs all IADLs. Pt reports using a 4WW at baseline. Reviewed History: Yes Social History Home: Single Level Current Living Status: Spouse Entry Into Home: Level Entry ADL-Prior Level of Function SCALE: Activities may be completed with or without assistive devices. 0-Gfqwfyvxqm-gpvxuoa completes the activity by him/herself with no assistance from a helper. 5-Set-up or Clean-up Assistance-helper sets up or cleans up; patient completes activity. [place] assists only prior to or following the activity. 4-Supervision or Touching Assistance-helper provides verbal cues and/or touching/steadying and/or contact guard assistance as patient completes activity. Assistance may be provided throughout the activity or intermittently. 3-Partial/Moderate Assistance-helper does LESS THAN HALF the effort. [place] lifts, holds or supports trunk or limbs, but provides less than half the effort. 2-Substantial/Maximal Assistance-helper does MORE THAN HALF the effort. [place] lifts or holds trunk or limbs and provides more than half the effort. 1-Cgacytxyg-tozlyf does ALL the effort. Patient does none of the effort to complete the activity. Or, the assistance of 2 or more helpers is required for the patient to complete the activity. If activity was not attempted, code reason: 7-Patient Refused. 9-Not Applicable-not attempted and the patient did not perform the activity before the current illness, exacerbation or injury. 10-Not Attempted due to Environmental Limitations-(lack of equipment, weather restraints, etc.). 88-Not Attempted due to Medical Conditions or Safety Concerns. Self Care: Needed Some Help ("a lot") Functional Cognition: Needed Some Help DME/Equipment: Bath Chair, Bedside Commode, Shower Drive Self: No OT Current Status Subjective Pt presents in recliner. She denies pain at rest but increases with activity and light touch. Co-treat with PT ([id number]) secondary to fall risk, fear of falling, weakness, lack of coordination, balance deficits, impaired cognition and safety concerns. Appearance Pt was left in recliner upon completion of evaluation. All needs were within reach. Mental Status/Objective Patient Orientation: Person, Confused, Place Attachments: IV, Telemetry Current Glasses/Contacts: Yes Dentures/Partials: No Hand Dominance: Right Upper Extremity ROM Mildly decreased UE ROM: shoulder flexion ~140 degrees Upper Extremity Strength Strength not formally tested secondary to pain with very light pressure Color Depositing Machine Tender strength: fair- Debilitated ADL-Treatment Eating (QC): 3 Oral Hygiene (QC): 3 Shower/Bathe Self (QC): 1 Upper Body Dressing (QC): 10 Lower Body Dressing (QC): 2 On/Off Footwear (QC): 1 Toileting Hygiene (QC): 2 Shower deferred at this time secondary to IV infusing. Sponge bath completed seated at sink, requiring extra time to complete. Pt able to wash upper body and front johnathan-area with mod verbal cues for sequencing. She was able to wash just below knee but needed assist for lower legs, possibly due to fear of falling. Mod assist x2 to stand, dependent to wash buttocks. RN reports IV needs to remain in place, thus UB dressing not assessed, new gown donned. Dependent to thread bilateral LE into brief, however pt does not complete at baseline. Initally, pt was dependent to pull clothing over hips, however improved to max assist on second attempt (after incontinent episode). Educated pt on timed voiding to reduce accidents in the future, further education will be needed. Oral hygiene at w/c level was done with SBA. Significant time and mod verbal cues for sequencing. Education on compensatory strategies were provided. Initially pt was mod-max assist x2 for transfers, but improves to mod assist x1 towards end of treatment. Pt has a significant fear of falling which increases fall risk. Assist to shift weight forwards as she can be retropulsive. Education OT Patient Education: Correct positioning, Energy conservation, Modified ADL techniques, Progress toward Goal/Update tx plan, Purpose of tx/functional activities, Rehab process, Safety issues, Transfer techniques, W/C management Teaching Recipient: Patient Teaching Methods: Demonstration, Discussion Response to Teaching: Verbalize Understanding, Reinforcement Needed OT Short Term Goals Short Term Goals Time Frame: Aug 11, 2022 Eatin Oral hygiene: 4 Toileting hygiene: 3 Shower/bathe self: 2 Upper body dressin Lower body dressin Putting on/taking off footwear: 2 OT Bi Report Developer Goals Bi Report Developer Goals Time Frame: Aug 20, 2022 Eating (QC): 4 Oral Hygiene (QC): 4 Toileting Hygiene (QC): 3 Shower/Bathe Self (QC): 3 Upper Body Dressing (QC): 3 Lower Body Dressing (QC): 3 On/Off Footwear (QC): 2 Additional Goals: 1-Demonstrate ADL Tasks, 2-Verbalize Understanding, 3-ImproveStrength/Jose 1=Demonstrate adherence to instructed precautions during ADL tasks. 2=Patient will verbalize/demonstrate understanding of assistive devices/modifications for ADL. 3=Patient will improve strength/tolerance for activity to enable patient to perform ADL's. Training with spouse to reduce burden of care. OT Education/Plan Problem List/Assessment Assessment: Decreased Activ Tolerance, Decreased Safety Aware, Decreased UE Strength, Dependent Transfers, Impaired Bed Mobility, Impaired Cognition, Impaired Coordination, Impaired Funct Balance, Impaired I ADL's, Impaired Self- Care Skills, Restricted Funct UE ROM Discharge Recommendations Plan/Recommendations: Continue POC Therapy Discharge Recommendati: Assisted Living, Bath Aide, Post Acute OT Comment Ongoing assessment Treatment Plan/Plan of Care Treatment,Training & Education: Yes Patient would benefit from OT for education, treatment and training to promote independence in ADL's, mobility, safety and/or upper extremity function for ADL 's. Plan of Care: ADL Retraining, Caregiver Training, Cognitive Retraining, Functional Mobility, Group Exercise/Act as Ind, UE Funct Exercise/Act, UE Neuromus Re-Ed/Coord, W/C Management Training Treatment Duration: Aug 20, 2022 Frequency: At least 5 of 7 days/Wk (IRF) Estimated Hrs Per Day: 1.5 hours per day Agreement: Yes Rehab Potential: Fair Time/GCodes Start Time: 13:10 Stop Time: 14:45 Total Time Billed (hr/min): 95 Billed Treatment Time 1 visit EVH (10 minutes) ADL x4 (60 minutes) FA (20 minutes) OT eval: [id number] Co-Treat: [id number] Kami Marcus OT Jul 28, 2022 14:52
--- NOTE | 2022-07-28 14:57 | Physical Therapy Daily Note ---
PT Daily Note-Current Subjective Pt. with OT in bthrm, agrees to Rx, shares that she is pleased she is doing this well this afternoon b/c AM PT Rx was so discouraging. Pain Numeric Pain Scale: 5-Moderate Pain Location: Medial, Left Location Body Site: Arm Pain Description: Pressure Comment: pt. c/o pain when touched or assisted to move. all over Mental Status Patient Orientation: Normal For Age Transfers SCALE: Activities may be completed with or without assistive devices. 6-Bnktxuoycb-cqpiwfh completes the activity by him/herself with no assistance from a helper. 5-Set-up or Clean-up Assistance-helper sets up or cleans up; patient completes activity. [place] assists only prior to or following the activity. 4-Supervision or Touching Assistance-helper provides verbal cues and/or touching/steadying and/or contact guard assistance as patient completes activity. Assistance may be provided throughout the activity or intermittently. 3-Partial/Moderate Assistance-helper does LESS THAN HALF the effort. [place] li fts, holds or supports trunk or limbs, but provides less than half the effort. 2-Substantial/Maximal Assistance-helper does MORE THAN HALF the effort. [place] lifts or holds trunk or limbs and provides more than half the effort. 4-Sukmmbnsd-bgnvqm does ALL the effort. Patient does none of the effort to complete the activity. Or, the assistance of 2 or more helpers is required for the patient to complete the activity. If activity was not attempted, code reason: 7-Patient Refused. 9-Not Applicable-not attempted and the patient did not perform the activity before the current illness, exacerbation or injury. 10-Not Attempted due to Environmental Limitations-(lack of equipment, weather restraints, etc.). 88-Not Attempted due to Medical Conditions or Safety Concerns. Sit to Stand (QC): 3 Chair/Vbp-nl-Rtioh Xfer(QC): 3 Toilet Transfer (QC): 3 Gait Training Does the Patient Walk?: Yes Walk 10 feet (QC): 4 Gait Persons Needed: 1 Gait Assistive Device: FWW w/c to follow close behind Wheelchair Training Does the Pt Use a Wheelchair?: Yes Type of Wheelchair: Manual pt. propelled using feet and hands approx 6 ft x2 with instruction for all Exercises Seated Therapy Exercises: Sit to stand Seated Reps: 3 Treatments co Rx PT OT secondary to fragile weak, deconditioned and frail state. OT completed partial bathing and dressing, pt. incont of urine required mod assist to SPT w/c to BSC over toilet. lift recline chair was obtained as this is appropriate for pt and she uses one at home. pt. in lift chair with head completely flat did partially push herself up in the chair and also needed sheet pulled up by assist of 2, room, bed, chair, scheduling, meals and call crowe etc were explained to pt and , pt in recliner with crowe at hand present Assessment Current Status: Good Progress this GENERAL ACCOUNTING CLERK having previously Rxd pt. on inpatient side in AM notes marked improvement as pt was max assist and had 10/10 pain with all touch and movement , pt. initiated her own activity and movement this aftn and shows possibility of progress PT Short Term Goals Short Term Goals Time Frame: Aug 04, 2022 Roll Left & Right: 3 (Nitesh) Sit to lyin (Ileana) Lying to sitting on side of be: 3 (Ileana) Sit to stand: 3 (Ileana) Chair/ymt-mw-rlhib transfer: 4 (CGA) Walk 10 feet: 4 (CGA) Walk 50 feet with two turns: 4 (CGA) PT Fpc Goals Fpc Goals PT Fpc Goals Time Frame: Aug 18, 2022 Roll Left & Right (QC): 4 (SBA) Sit to Lying (QC): 4 (SBA) Lying-Sitting on Side/Bed(QC): 4 (SBA) Sit to Stand (QC): 4 (SBA) Chair/Vog-yb-Muzoz Xfer(QC): 4 (BA) Toilet Transfer (QC): 4 (SBA) Car Transfer (QC): 4 (SBA) Does the Patient Walk: Yes Walk 10 feet (QC): 4 (SBA) Walk 50ft with 2 Turns (QC): 4 (SBA) Walk 150 ft (QC): 4 (SBA) Walking 10ft on Uneven Surface: 4 (SBA) 1 Step (curb) (QC): 4 (CGA) 4 Steps (QC): 4 (CGA) 12 Steps (QC): 88 Picking up an Object (QC): 4 (SBA using drill sergeant) Wheel 50 feet with 2 turns (QC: 9 Wheel 150 feet: 9 PT Plan Treatment/Plan Treatment Plan: Continue Plan of Care Treatment Plan: Bed Mobility, Education, Functional Activity Jose, Functional Strength, Group Therapy, Gait, Safety, Therapeutic Exercise, Transfers Treatment Duration: Aug 04, 2022 Frequency: Modified Program (IRF) (04/06) Estimated Hrs Per Day: 1.5 hours per day Patient and/or Family Agrees t: Yes Safety Risks/Education Patient Education: Gait Training, Transfer Techniques, Correct Positioning, W/C Management, Safety Issues Teaching Recipient: Patient Teaching Methods: Demonstration, Discussion Response to Teaching: Verbalize Understanding, Return Demonstration, Reinforcement Needed Time/GCodes Time In: 1345 Time Out: 1445 Total Billed Treatment Time: 60 Total Billed Treatment 1,FA60m (60 m co Rx) PIERRE GONZALES GENERAL ACCOUNTING CLERK Jul 28, 2022 14:57
[2022-07-28 19:49] VITALS: BP 157/93
--- NOTE | 2022-07-28 20:06 | PM&R Post Admission Assessment ---
PM&R Date of Visit: Jul 28, 2022 Time of Visit: 13:30 History of Present Illness CC: Steroid-induced myopathy HPI: This is a very complicated 71 [address] old female of Dr[address] Womack. She presents to in-patient rehab due to steroid induced myopathy. It appears she has a history of acute on chronic renal insufficiency, dehydration, and hypertension. She has a history of polymyalgia rheumatica, recently tapered down off steroids after initiation of Methotrexate in April. She has had increased weakness when she has lived at home with her spouse. Prior level of functioning was assisted pt when she had increased weakness but otherwise dependent. She is very weak and having significant issues getting around. She will require a slower intensity for rehab. CC: Weakness, Steroid induced myopathy HPI: Masha is a 71yo female with polymyalgia rheumatica which has been managed with steroids for years. She started methotrexate in April and was tapered off steroids a week ago. She was walking with a cane and improving to the point where she thought she may be able to stop using the cane. However, after tapering off the steroids, she started to feel weak so she was prescribed a 3day steroid burst. A few days into the steroid burst she became so weak that her was no longer able to help her around by himself. He brought who to the ER where she was diagnosed with acute on chronic renal failure, dehydration and hypertensive crisis. She has been working with PT for the last 3 days and was making progress until today she said she had a bad day. Her pain is currently being managed well, she feels like her cognition is improving but she is still very weak. 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 Allergies: Allopurinol, Cephalexin, Clonazepam, Enalaprilat, Hydroxychloroquine, Lorazepam, Sulfamethoxazole, Trimethoprim Home Meds Active Divalproex Sodium ER (Divalproex Sodium) 250 Mg Tab.er.24h 750 Mg PO HS Prednisone 20 Mg Tab 20 Mg PO DAILY@2000 Pantoprazole Sodium 40 Mg Tablet.dr 40 Mg PO DAILY Hydralazine HCl 10 Mg Tablet 10 Mg PO TID Reported Tylenol (Acetaminophen) 325 Mg Tablet 650 Mg PO Q6H PRN Vitamin C (Ascorbic Acid) 1,000 Mg Tablet 1,000 Mg PO HS Culturelle (Lactobacillus Rhamnosus GG) 10 Billion Cell Capsule 1 Each PO BID Coq-10 (Ubidecarenone) 100 Mg Capsule 100 Mg PO DAILY Cetirizine HCl 10 Mg Tablet 10 Mg PO DAILY Alphagan P (Brimonidine Tartrate) 0.15 % Drops 1 Drop OP BID Vitamin D3 (Cholecalciferol (Vitamin D3)) 50 Mcg (2000 Unit) Tablet 50 Mcg PO BID Vitamin B-12 (Cyanocobalamin (Vitamin B-12)) 1,000 Mcg Capsule 1,000 Mcg PO DAILY Metoprolol Tartrate 25 Mg Tablet 25 Mg PO BID Glucosamine Chondroitin Tab (Gluc Conner/Chondro Conner A/Vit C/Mn) 750 Mg-600 Mg-55 Mg- 5 Mg Tablet 1 Each PO BID Folic Acid 1 Mg Tablet 1 Mg PO DAILY Methotrexate (Methotrexate Sodium) 2.5 Mg Tablet 10 Mg PO TUESDAY TAKES 4 (2.5MG) TABLETS ON TUESDAYS Ferosul (Ferrous Sulfate) 325 Mg (65 Mg Iron) Tablet 325 Mg PO HS ROS: Denies any sweats, chills, nausea or vomiting Denies any vision changes, light headedness or dizziness Denies chest pain or palpitations Denies shortness of breath Positive for generalized muscle weakness Positive for chronic bruising Exam General: pt laying in bed, appeared pale and weak. Speech is slow with long pauses HEENT: PERRL/EOMI, moist mucus membranes Cardiovascular: Tachycardia, no murmors, normal peripheral pulses Respiratory: Lungs CTAB, no accessory muscle use, no respiratory distress GI: Abdomen soft, non tender, non distended. Normal bowel sounds x4 quadrants Integumentary: Multiple bruises in various stages of healing on all extremities (secondary to chronic steroid use). Skin is very sensitive to the touch Neuro: Patient alert, oriented x3 with normal mood/affect. Moderate resting tremor of LUE. Laboratory Tests Test 07/27/22 20:26 07/28/22 05:15 07/28/22 05:31 Range/Units Valproic Acid (Depakene) Level 40.4 L 50.0-100.0 UG/ML Sodium Level 144 135-145 MMOL/L Potassium Level 4.4 3.6-5.0 MMOL/L Chloride Level 110 H 98-107 MMOL/L Carbon Dioxide Level 19 L 21-32 MMOL/L Anion Gap 15 H 5-14 MMOL/L Blood Urea Nitrogen 61 H 7-18 MG/DL Creatinine 1.72 H 0.60-1.30 MG/DL Estimat Glomerular Filtration Rate 31 BUN/Creatinine Ratio 35 Glucose Level 86 70-105 MG/DL Calcium Level 12.1 H 8.5-10.1 MG/DL Corrected Calcium 12.6 H 8.5-10.1 MG/DL Total Bilirubin 0.5 0.1-1.0 MG/DL Aspartate Amino Transf (AST/SGOT) 32 5-34 U/L Alanine Aminotransferase (ALT/SGPT) 49 0-55 U/L Alkaline Phosphatase 56 40-136 U/L Total Protein 5.8 L 6.4-8.2 GM/DL Albumin 3.4 3.2-4.5 GM/DL White Blood Count 8.9 4.3-11.0 10^3/uL Red Blood Count 3.04 L 3.80-5.11 10^6/uL Hemoglobin 10.7 L 11.5-16.0 g/dL Hematocrit 32 L 35-52 % Mean Corpuscular Volume 105 H 80-99 fL Mean Corpuscular Hemoglobin 35 H 25-34 pg Mean Corpuscular Hemoglobin Concent 33 32-36 g/dL Red Cell Distribution Width 16.5 H 10.0-14.5 % Platelet Count 185 130-400 10^3/uL Mean Platelet Volume 10.7 9.0-12.2 fL Immature Granulocyte % (Auto) 5 % Neutrophils (%) (Auto) 70 42-75 % Lymphocytes (%) (Auto) 17 12-44 % Monocytes (%) (Auto) 7 0-12 % Eosinophils (%) (Auto) 1 0-10 % Basophils (%) (Auto) 0 0-10 % Neutrophils # (Auto) 6.3 1.8-7.8 10^3/uL Lymphocytes # (Auto) 1.5 1.0-4.0 10^3/uL Monocytes # (Auto) 0.6 0.0-1.0 10^3/uL Eosinophils # (Auto) 0.1 0.0-0.3 10^3/uL Basophils # (Auto) 0.0 0.0-0.1 10^3/uL Immature Granulocyte # (Auto) 0.4 H 0.0-0.1 10^3/uL Assessment/Plan: Steroid induced myopathy Currently tapering off prednisone. Down to 20mg today Acute on Chronic renal failure with Dehydration Pt has stage 3 CKD w/baseline creatinine around 1.5 Creatinine today was 1.72 Continue IV fluids, correct electrolyte abnormalities as needed Hypertensive Urgency Pt still hypertensive w/SBP over 200 as recent as this morning Currently on Lopressor and Hydralazine Polymyalgia Rheumatica Holding methotrexate for now Chronic Bipolar Mood disorder with hx of don Pt had supratheraeutic depakote level on admission. Depakote was held tuesday/tuesday and restarted yesterday. Currently on 750mg depakote. Blood levels were subtherapeutic yesterday, will recheck this afternoon Hyperlipidemia Holding statin for now Osteoarthritis tylenol PRN. Chronic anemia Hgb stable, 11.7 today. Will continue to monitor Hypercalcemia Still mildly elevated today at 12.7 Expect improvement with continue hydration and improving kidney fxn Generalized weakness Pt to be moved to [facility] today. Will begin aggressive PT/OT starting tomorrow DVT PPX: Lovenox, SCDs if pt can tolerate GI PPX: PPI Past [id number] Hx Past Med/Social Hx: Reviewed Nursing Past Med/Soc Hx, Reviewed and Corrections made Patient Social History Marrital Status: single Employed/Student: retired Smoking Status: Never a Smoker Recent Hopitalizations: No Seasonal Allergies Seasonal Allergies: Yes Past Medical History Surgeries: Breast, Eye Surgery, Hysterectomy, Renal Currently Using CPAP: No Currently Using BIPAP: No Cardiac: Coronary Artery Disease, Heart Murmur, High Cholesterol, Hypertension Reproductive: No Sexually Transmitted Disease: No HIV/AIDS: No Genitourinary: Renal Failure, UTI-Chronic Gastrointestinal: Polyps Musculoskeletal: Arthritis, Fractures HEENT: Cataract Loss of Vision: Denies Hearing Impairment: Denies Psychosocial: Anxiety, Bipolar, Depression History of Blood Disorders: No Family History Heart Disease, Hypertension Prior Level of Function Bed Mobility: 6 Transfers: 6 Gait: 6 Indoor Mobility (Ambulation): Independent Prior Devices Use: Walker Self Care: Needed Some Help ("a lot") Functional Cognition: Needed Some Help Drive Self: No Current Level of Fuctioning Roll Left to Right: 2 Sit to Lyin Lying to Sitting/Side of Bed: 2 Sit to Stand: 3 Chair/[id number] Xfer: 3 Car Transfer: 3 Does the Patient Walk: Yes Mode of Locomotion: Walk Anticipated Mode of Locomotion: Walk Walk 10 feet: 4 Walk 50 ft with 2 Turns: 88 Walk 150 ft: 88 Walking 10ft on uneven surface: 3 Gait Assistive Device: FWW Does the Pt Use a Wheelchair: Yes Wheel 50 ft with 2 turns: 2 Wheel 150 ft: 2 Type of Wheelchair: Manual 1 Step (curb): 88 4 Steps: 88 12 Steps: 88 Picking up an Object: 88 (patient cannot do even with a inspector health care facilities due to retropulsion when standing) Eatin Oral Hygiene: 3 Shower/Bathe Self: 1 Upper Body Dressin Lower Body Dressin On/Off Footwear: 1 Toileting Hygiene: 2 PM&R Allergy/Meds/Data Review Allergies Coded Allergies: lorazepam (Verified Allergy, Mild, 12/25/19) allopurinol (Verified Allergy, Unknown, 07/24/22) cephalexin (Verified Allergy, Unknown, 12/25/19) clonazepam (Verified Allergy, Unknown, 07/24/22) enalaprilat (Verified Allergy, Unknown, 07/24/22) hydroxychloroquine (Verified Allergy, Unknown, 07/24/22) sulfamethoxazole (Verified Allergy, Unknown, Rash, 12/25/19) trimethoprim (Verified Allergy, Unknown, Rash, 12/25/19) Home Medications Scheduled Ascorbic Acid (Vitamin C), 1,000 MG PO HS, (Reported) Brimonidine Tartrate (Alphagan P), 1 DROP OP BID, (Reported) Cetirizine HCl (Cetirizine HCl), 10 MG PO DAILY, (Reported) Cholecalciferol (Vitamin D3) (Vitamin D3), 50 MCG PO BID, (Reported) Cyanocobalamin (Vitamin B-12) (Vitamin B-12), 1,000 MCG PO DAILY, (Reported) Divalproex Sodium (Divalproex Sodium ER), 750 MG PO HS Ferrous Sulfate (Ferosul), 325 MG PO HS, (Reported) Folic Acid (Folic Acid), 1 MG PO DAILY, (Reported) Gluc Conner/Chondro Conner A/Vit C/Mn (Glucosamine Chondroitin Tab), 1 EACH PO BID, (Reported) Hydralazine HCl (Hydralazine HCl), 10 MG PO TID Lactobacillus Rhamnosus GG (Culturelle), 1 EACH PO BID, (Reported) Methotrexate Sodium (Methotrexate), 10 MG PO TUESDAY, (Reported) Metoprolol Tartrate (Metoprolol Tartrate), 25 MG PO BID, (Reported) Pantoprazole Sodium (Pantoprazole Sodium), 40 MG PO DAILY Prednisone (Prednisone), 20 MG PO DAILY@2000 Ubidecarenone (Coq-10), 100 MG PO DAILY, (Reported) Scheduled PRN Acetaminophen (Tylenol), 650 MG PO Q6H PRN for PAIN-MILD (1-4), (Reported) Discontinued Medications Acetaminophen (Acetaminophen ER), 650 MG PO Q6H, (Reported) Discontinued Reason: Duplicate Order Ascorbic Acid (Vitamin C), 1,000 MG PO DAILY, (Reported) Discontinued Reason: Duplicate Order Brimonidine Tartrate (Alphagan P), 2 DROP OP BID, (Reported) Discontinued Reason: Duplicate Order Carboxymethylcellulos/Glycerin (Refresh Relieva 0.5-0.9% Drop), 1 DROP OP DAILY PRN, (Reported) Discontinued Reason: Duplicate Order Cetirizine HCl (Cetirizine HCl), 10 MG PO DAILY, (Reported) Discontinued Reason: Duplicate Order Cholecalciferol (Vitamin D3) (Vitamin D3), 50 MCG PO BID, (Reported) Discontinued Reason: No Longer Taking Cyclobenzaprine HCl (Cyclobenzaprine HCl), 5 MG PO BID PRN for MUSCLE SPASMS, (Reported) Discontinued Reason: Duplicate Order Divalproex Sodium (Divalproex Sodium), 1,000 MG PO HS, (Reported) Doxycycline Hyclate (Doxycycline Hyclate), (Reported) Doxycycline Hyclate (Doxycycline Hyclate), 100 MG PO BID, (Reported) Fexofenadine HCl (Mayelin Allergy), 180 MG PO HS, (Reported) Discontinued Reason: No Longer Taking Hydralazine HCl (Hydralazine HCl), 10 MG PO Q4HR PRN for BLOOD PRESSURE Discontinued Reason: No Longer Taking Lactobacillus Rhamnosus GG (Culturelle), 2 EACH PO DAILY Discontinued Reason: Duplicate Order Metoprolol Tartrate (Metoprolol Tartrate), 100 MG PO BID Discontinued Reason: Duplicate Order Mv-Mn/Folic Acid/Calcium/Vit K (Women's 50 Plus Multivit Tab), 1 EACH PO DAILY, (Reported) Omeprazole (Omeprazole), (Reported) Discontinued Reason: Duplicate Order Omeprazole (Omeprazole), 40 MG PO BID, (Reported) Discontinued Reason: No Longer Taking Prednisone (Prednisone), (Reported) Discontinued Reason: No Longer Taking Prednisone (Prednisone), 5 MG PO UD Discontinued Reason: Duplicate Order Prednisone (Prednisone), 40 MG PO DAILY, (Reported) Rosuvastatin Calcium (Crestor), 10 MG PO HS, (Reported) Discontinued Reason: No Longer Taking Ubidecarenone (Coq-10), 100 MG PO DAILY, (Reported) Discontinued Reason: Duplicate Order Current Medications Current Medications Reviewed Review of Systems Constitutional: see HPI, malaise, weakness EENTM: no symptoms reported Respiratory: no symptoms reported Cardiovascular: no symptoms reported Gastrointestinal: no symptoms reported Genitourinary: no symptoms reported Musculoskeletal: back pain, joint pain, muscle pain, muscle stiffness, muscle cramps, muscle twitching, muscle weakness, neck pain Skin: no symptoms reported Psychiatric/Neurological: Anxiety, Depressed, Numbness, Tingling, Tremors, Weakness All Other Systems Reviewed Negative Unless Noted: Yes Physical Exam Physical Exam Vital Signs Vital Signs - First Documented 07/28/22 19:49 Temp 36.2 Pulse 89 Resp 20 B/P (MAP) 157/93 (114) Pulse Ox 93 O2 Delivery Room Air Capillary Refill : Height, Weight, BMI Height: 5'6.00" Weight: 150lbs. 0.0oz. [id number]; 24.56 BMI Method:Estimated General Appearance: WD/WN, Anxious, Chronically ill, Mild Distress, Other (tremors noted, frail, pale, very debilitated) Eyes: Bilateral Eye Normal Inspection, Bilateral Eye PERRL HEENT: PERRL/EOMI, Normal ENT Inspection, Pharynx Normal Neck: Full Range of Motion, Normal Inspection, Non Tender, Supple, Carotid Bruit Respiratory: Chest Non Tender, Lungs Clear, Normal Breath Sounds, No Accessory Muscle Use, No Respiratory Distress Cardiovascular: Regular Rate, Rhythm, No Edema, No Gallop, No JVD, No Murmur, Normal Peripheral Pulses Gastrointestinal: Normal Bowel Sounds, No Organomegaly, No Pulsatile Mass, Non Tender, Soft Back: Normal Inspection, No CVA Tenderness, No Vertebral Tenderness Extremity: Normal Capillary Refill, Normal Inspection, Normal Range of Motion, Non Tender, No Calf Tenderness, No Pedal Edema, Other (limited ROM all extremities) Neurologic/Psychiatric: Alert, Oriented x3, executive secretary II-XII Norm as Tested, Depresse d Affect, Motor Weakness (severe weakness 3/5 all extremities and torso ROM) Skin: Normal Color, Warm/Dry Lymphatic: No Adenopathy PM&R Medical Assessment & Plan REHAB/MEDICAL ASSESSMENT AND PLAN: REHAB IMPAIRMENT GROUP: steroid induced myopathy ETIOLOGIC DIAGNOSIS: steroid induced myopathy The comorbidities that impact the patients function and/or functional outcome by: severe weakness, fall risk, chronic debility, emotional problems REHAB PLAN: The patient is being admitted to our comprehensive inpatient rehabilitation facility and can tolerate the intensity of service consisting of at least: 180 minutes of therapy a day, 5 out of 7 days a week Rehab treatment will consist of: PT OT will help increase stamina along with ambulatory skills with use of AD in order to regain function in order to regain independence The patient/family has a good understanding of our discharge process and will be nefit from an interdisciplinary inpatient rehabilitation program. The patient has potential to make improvement and is in need of at least two of the following multidisciplinary therapies including but not limited to physical, occupational, speech, and prosthetics and orthotics. Additionally the patient will need services from respiratory, nutritional services, wound care, psychol ogy, etc. (Customize this to each patient). Given the patients complex condition and risk of further medical complications, rehabilitation services cannot be safely or effectively provided at a lower level of care such as a prison facility. BARRIERS TO DISCHARGE: Severe weakness from myopathy ESTIMATED LOS: 14 days DISPOSITION: Home RELEVANT CHANGES SINCE PREADMISSION SCREENING: I have compared the patients medical and functional status at the time of the preadmission screening and there are: no changes PROGNOSIS: Guarded REHABILITATION GOALS: 1. PT OT will help increase stamina along with ambulatory skills with use of AD in order to regain function in order to regain independence All the above goals were reviewed with the patient and he/she is in agreement. By signing this document, I acknowledge that I have personally performed a full physical examination on this patient within 24 hours of admission to this inpatient rehabilitation facility and have determined the patient to be able to tolerate the above course of treatment at an intensive level for a reasonable period of time. I will be completing a detailed individualized Plan of Care for this patient by day #4 of the patients stay based upon the Preadmission Screen, the Post-Admission Evaluation, and the therapy evaluations. Admission Dx/Comorbidities: (1) Steroid myopathy ICD Codes: G72.0 - Drug-induced myopathy; T38.0X5A - Adverse effect of glucocorticoids and synthetic analogues, initial encounter (2) Generalized weakness Status: Acute ICD Codes: R53.1 - Weakness (3) Polymyalgia rheumatica Status: Acute ICD Codes: M35.3 - Polymyalgia rheumatica (4) Dehydration Status: Acute ICD Codes: E86.0 - Dehydration (5) Essential hypertension ICD Codes: I10 - Essential (primary) hypertension (6) Mixed hyperlipidemia ICD Codes: E78.2 - Mixed hyperlipidemia (7) Stage III chronic kidney disease ICD Codes: N18.30 - Chronic kidney disease, stage 3 unspecified (8) Acute kidney injury superimposed on chronic kidney disease ICD Codes: N17.9 - Acute kidney failure, unspecified; N18.9 - Chronic kidney disease, unspecified Assessment/Plan Assessment and Plan Assess & Plan/Chief Complaint Assessment/Plan: Steroid induced myopathy Currently tapering off prednisone. Down to 20mg today Acute on Chronic renal failure with Dehydration Pt has stage 3 CKD w/baseline creatinine around 1.5 Creatinine today was 1.72 Continue IV fluids, correct electrolyte abnormalities as needed Hypertensive Urgency Pt still hypertensive w/SBP over 200 as recent as this morning Currently on Lopressor and Hydralazine Polymyalgia Rheumatica Holding methotrexate for now Chronic Bipolar Mood disorder with hx of don Pt had supratheraeutic depakote level on admission. Depakote was held tuesday/tuesday and restarted yesterday. Currently on 750mg depakote. Blood levels were subtherapeutic yesterday, will recheck this afternoon Hyperlipidemia Holding statin for now Osteoarthritis tylenol PRN. Chronic anemia Hgb stable, 11.7 today. Will continue to monitor Hypercalcemia Still mildly elevated today at 12.7 Expect improvement with continue hydration and improving kidney fxn Generalized weakness Pt to be moved to [facility] today. Will begin aggressive PT/OT starting tomorrow DVT PPX: Lovenox, SCDs if pt can tolerate GI PPX: PPI CHRIS TORREZ DO Jul 28, 2022 20:06
[2022-07-28] MEDS ORDERED: SENNA W/DOCUSATE (SENOKOT S) TABLET PO PRN (20:15)
[2022-07-28] MEDS ORDERED: ARTIFICAL TEARS 0.4 ML UNIT DOSE (REFRESH PLUS) OU PRN (20:15)
[2022-07-28] MEDS ORDERED: METHOTREXATE 2.5 MG TAB PO SCH (20:15)
[2022-07-28 20:41] VITALS: BP 157/93
[2022-07-28] MEDS ORDERED: RT-ALBUTEROL SULF 2.5 MG/3 ML PRE-MIX VIAL INH PRN (20:45)
[2022-07-28] MEDS: DOCUSATE SODIUM 100 MG (COLACE) CAP PO SCH (21:00)
[2022-07-28] MEDS: polyethylene glycoL POWDER 17 GM (MIRALAX) PACK PO SCH (21:00)
[2022-07-28] MEDS: SENNA W/DOCUSATE (SENOKOT S) TABLET PO SCH (21:00)
[2022-07-28] MEDS: DIVALPROEX EXT RELEASE 250 MG (DEPAKOTE ER) TAB PO SCH (22:13)
[2022-07-28] MEDS: predniSONE 20 MG TAB PO SCH (22:13)
[2022-07-28] MEDS: VITAMIN D3 25 MCG (1,000 UNITS) TABLET PO SCH (22:14)
[2022-07-28] MEDS: ENOXAPARIN INJECTION 30 MG/0.3 ML SYR SC SCH (22:14)
[2022-07-28] MEDS: meTOprolol TARTRATE 25 MG (LOPRESSOR) TABLET PO SCH (22:14)
--- NOTE | 2022-07-29 05:39 | Individualized Plan of Care ---
Individualized Plan of Care Rehab Nursing IPOC Order Admission Date Jul 28, 2022 at 13:00 Current Orders Orders Admission Order(Inpt,Obs,Sdc) (07/28/22 11:13) Vital Signs: Per Unit Policy ( 16, (07/28/22 11:13) Amanuel Shane (07/28/22 11:13) Sequential Compression Device (07/28/22 11:13) Kettle Chipper-Inpt Rehab Con (07/28/22 11:13) Rehab Nursing Orders-Ipoc (07/28/22 11:13) Physical Therapy Rehab Orders (07/28/22 11:13) Occupational Therapy Rehab Ord (07/28/22 11:13) Speech Therapy Rehab Orders (07/28/22 11:13) Cbc With Automated Diff (07/29/22 06:00) Comprehensive Metabolic Panel (07/29/22 06:00) Precautions (Aru) (07/28/22 11:13) Initiate Admission Nursing Pro .admission (07/28/22 11:13) Alprazolam Tablet (Xanax Tablet) (07/28/22 11:15) Calcium Carbonate Chew Tablet (Antacid C (07/28/22 11:15) Diphenhydramine Tablet (Benadryl Tablet) (07/28/22 11:15) Docusate Sodium Capsule (Colace Capsule) (07/28/22 21:00) Docusate Sodium Capsule (Colace Capsule) (07/28/22 11:15) Bisacodyl Suppository (Dulcolax Supposit (07/28/22 11:15) Lactulose Oral Solution (Enulose Oral So (07/28/22 11:15) Na Phos/Na Biphos Enema (Fleet Enema Andrade (07/28/22 11:15) Guaifenesin/Codeine Syrup (Robitussin Ac (07/28/22 11:15) Loperamide Tablet (Imodium Tablet) (07/28/22 11:15) Melatonin Tablet (Melatonin Tablet) (07/28/22 11:15) Polyethylene Glycol Powder Pkt (Miralax (07/28/22 21:00) Ondansetron Oral Dissolve Tab (Zofran (07/28/22 11:15) Senna S Tablet (Senokot S Tablet) (07/28/22 21:00) Acetaminophen Tablet/Caplet (Tylenol T (07/28/22 11:15) Code/Resuscitation (07/28/22 11:13) Initiate Admission Nursing Pro .admission (07/28/22 11:13) Admission Arrival Bed Request (07/28/22 13:07) Patient Visit (07/28/22 ) Functional Activities, Ea 15 (07/28/22 ) Patient Visit (07/28/22 ) Functional Activities, Ea 15 (07/28/22 ) Pt Eval Moderate Complexity (07/28/22 ) Sodium 2g (2000 Mg) (07/28/22 Dinner) Code/Resuscitation (07/28/22 20:04) Incentive Spirometry (Nursing) Q2H (07/28/22 20:04) Sodium 2g (2000 Mg) (07/29/22 Breakfast) Carboxymethylcell Ophth Soln (Refresh Pl (07/28/22 20:15) Cholecalciferol Capsule/Tablet (Vitamin (07/28/22 21:00) Cyanocobalamin Tablet (Vitamin B-12 Tabl (07/29/22 09:00) Divalproex Er 24 Hr Tablet (Depakote Er (07/28/22 21:00) Enoxaparin Injection (Lovenox Injection) (07/28/22 21:00) Folic Acid Tablet (Folic Acid Tablet) (07/29/22 09:00) Methotrexate Tablet (Methotrexate Tablet (07/28/22 20:15) Pantoprazole Tablet (Protonix Tablet) (07/29/22 09:00) Senna S Tablet (Senokot S Tablet) (07/28/22 20:15) Hydralazine Tablet (Apresoline Tablet) (07/28/22 21:00) Metoprolol Tartrate (Ir) Tab (Lopressor (07/28/22 21:00) Prednisone Tablet (Deltasone Tablet) (07/28/22 20:15) Incentive Spirometry Initial (07/28/22 20:04) Incentive Spirometry (Nursing) Q2H (07/28/22 20:04) Iv Convert To Heplock (Order) (07/28/22 20:32) Albuterol Pre-Mix Nebs (Rt) (Proventil (07/28/22 20:45) Svn Small Volume Nebulizer (07/28/22 20:43) Rehab-Intensity Of Therapy (07/29/22 05:39) Patient May Use Own Med,Single (Patient (07/29/22 21:00) Mat Initiate Protocol (07/29/22 11:02) Oxygen Delivery Set Up (07/29/22 11:07) Patient's Own Med(Rx Use Only) (Patient' (07/29/22 21:00) Patient Visit (07/29/22 ) Speech Sound Lang Comp (07/29/22 ) Treat. Speech/Lang/Voice (07/29/22 ) Patient Visit (07/29/22 ) Functional Activities, Ea 15 (07/29/22 ) Gait Training, Ea 15 Min (07/29/22 ) Exercise Therap, Ea 15 Min (07/29/22 ) 1/2 Ns Iv Solution (0.45% Sodium Chlorid (07/29/22 20:30) Rehab Nursing Orders: Ongoing Assess. of Cognitive Status, Ongoing Assess. of Function Status, Bladder Management, Bladder Scan, Bladder Training, Bowel Management, Bowel Training, Disease Management & Educaiton, DVT Prophylaxis, Fall Prevention, Fluid/Electrolyte/Nutrition Mgmt, Infection Prevention, Medication Management & Education, Management of Risks & Complications, Management of Skin Intergrity, Nutrition Management, Pain Management, Patient/Family Support, Safety Management, Swallow Precautions Intensity of Therapy to be met Patient to be seen: Min.3h per day/5 of 7d PT IPOC Problem List: Activity Tolerance, Functional Strength, Safety, Balance, Gait, Transfer, Bed Mobility, ROM Treatment Plan: Continue Plan of Care Bed Mobility, Education, Functional Activity Jose, Functional Strength, Group Therapy, Gait, Safety, Therapeutic Exercise, Transfers Treatment Duration: Aug 04, 2022 Frequency: Modified Program (IRF) (04/06) Estimated Hrs Per Day: 1.5 hours per day OT IPOC Problems: Decreased Activ Tolerance, Decreased Safety Aware, Decreased UE Strength, Dependent Transfers, Impaired Bed Mobility, Impaired Cognition, Impaired Coordination, Impaired Funct Balance, Impaired I ADL's, Impaired Self- Care Skills, Restricted Funct UE ROM OT Treatment, Training and Edu: Yes Plan of Care: ADL Retraining, Caregiver Training, Cognitive Retraining, Functional Mobility, Group Exercise/Act as Ind, UE Funct Exercise/Act, UE Neuromus Re-Ed/Coord, W/C Management Training Treatment Duration: Aug 20, 2022 Frequency: At least 5 of 7 days/Wk (IRF) Estimated Hrs Per Day: 1.[address] IPOC Speech Therapy Treatment Plan: Continue Plan of Care Treatment Duration: Jul 29, 2022 Frequency: Modified Program (IRF) Estimated Hrs Per Day: Other Kettle Chipper/Case Mgmt Kettle Chipper/Case Managemen: Discharge Planning Dietitian/Market Developer Dietitian/Market Developer to monitor nutritional status and make changes and/or recommendations as needed and work with speech pathology on dietary upgrades as the occur. Physician IPOC Medical Issues being managed closely and that require the 24 hour availability of a physician: Recent decompensation with PMR and steroid induced myopathy along with CKD and hypercalcemia will require close monitoring for decompensation Medical Issues: Bowel/Bladder Function, DVT Prophylaxis, Falls Precautions, Fluid/Electrolyte/Nutrition Balance, Infection Protection, Pain Management Brief Synthesis of Preadmission Screen, Post-Admission Evaluation, and Therapy Evaluations: PT OT ST will all focus on regaining function with increased stamina with ambulation and independent ADL's in order to regain enough to return home with spouse Medical Prognosis: Fair to poor Anticipated Length of Stay: 10 days CHRIS TORREZ DO Jul 29, 2022 05:39
--- NOTE | 2022-07-29 05:39 | PM&R Progress Note ---
Subjective HPI/CC On Admission Date Seen by Provider: Jul 29, 2022 Time Seen by Provider: 10:30 Subjective/Events-last exam 07/29/2022: Doing a bit better Very weak Chronically ill No pain reported except muscles Eating a bit better BM+ Urination good Review of Systems General: Fatigue, Malaise Objective Exam Vital Signs Vital Signs Date Time Temp Pulse Resp B/P (MAP) Pulse Ox O2 Delivery O2 Flow Rate FiO2 07/29/22 13:15 86 139/93 (108) 07/29/22 11:02 36.3 95 21 07/29/22 11:00 Room Air 0.00 07/29/22 07:22 18 Capillary Refill : General Appearance: WD/WN, Anxious, Chronically ill, Mild Distress, Other (tremors noted, frail, pale, very debilitated) HEENT: PERRL/EOMI, Normal ENT Inspection, Pharynx Normal Neck: Full Range of Motion, Normal Inspection, Non Tender, Supple, Carotid Bruit Respiratory: Chest Non Tender, Lungs Clear, Normal Breath Sounds, No Accessory Muscle Use, No Respiratory Distress Cardiovascular: Regular Rate, Rhythm, No Edema, No Gallop, No JVD, No Murmur, Normal Peripheral Pulses Gastrointestinal: Normal Bowel Sounds, No Organomegaly, No Pulsatile Mass, Non Tender, Soft Back: Normal Inspection, No CVA Tenderness, No Vertebral Tenderness Extremity: Normal Capillary Refill, Normal Inspection, Normal Range of Motion, Non Tender, No Calf Tenderness, No Pedal Edema, Other (limited ROM all extremities) Neurologic/Psychiatric: Alert, Oriented x3, art teacher II-XII Norm as Tested, Depressed Affect, Motor Weakness (severe weakness 3/5 all extremities and torso ROM) Skin: Normal Color, Warm/Dry Lymphatic: No Adenopathy Results/Procedures Lab Laboratory Tests 07/29/22 08:20 Patient resulted labs reviewed. FIM Transfers Therapy Code Descriptions/Definitions Functional [place] Measure: 0=Not Assessed/NA 4=Minimal Assistance 1=Total Assistance 5=Supervision or Setup 2=Maximal Assistance 6=Modified [place] 3=Moderate Assistance 7=Complete IndependenceSCALE: Activities may be completed with or without assistive devices. 5-Onxlvxjwut-mhtgtfm completes the activity by him/herself with no assistance from a helper. 5-Set-up or Clean-up Assistance-helper sets up or cleans up; patient completes activity. [place] assists only prior to or following the activity. 4-Supervision or Touching Assistance-helper provides verbal cues and/or touching/steadying and/or contact guard assistance as patient completes activity. Assistance may be provided throughout the activity or intermittently. 3-Partial/Moderate Assistance-helper does LESS THAN HALF the effort. [place] lifts, holds or supports trunk or limbs, but provides less than half the effort. 2-Substantial/Maximal Assistance-helper does MORE THAN HALF the effort. [place] lifts or holds trunk or limbs and provides more than half the effort. 1-Yajkseacf-fqjdkp does ALL the effort. Patient does none of the effort to complete the activity. Or, the assistance of 2 or more helpers is required for the patient to complete the activity. If activity was not attempted, code reason: 7-Patient Refused. 9-Not Applicable-not attempted and the patient did not perform the activity before the current illness, exacerbation or injury. 10-Not Attempted due to Environmental Limitations-(lack of equipment, weather restraints, etc.). 88-Not Attempted due to Medical Conditions or Safety Concerns. Roll Left to Right (QC): 2 Sit to Lying (QC): 2 Sit to Stand (QC): 3 Chair/Bjo-jm-Sfahx Xfer(QC): 3 Car Transfer (QC): 3 Gait Training Does the Patient Walk?: Yes Walk 10 feet (QC): 4 Walk 50 ft with 2 Turns(QC): 88 Walk 150 ft (QC): 88 Walking 10ft/uneven surface-QC: 3 Gait Persons Needed: 1 Gait Assistive Device: FWW Wheelchair Training Does the Pt Use a Wheelchair?: Yes Wheel 50 ft with 2 turns (QC): 2 Wheel 150 ft (QC): 2 Type of Wheelchair: Manual Stair Training 1 Step (curb) (QC): 88 4 Steps (QC): 88 12 Steps (QC): 88 Balance Picking up an Object (QC): 88 (patient cannot do even with a senior network security engineer due to retropulsion when standing) ADL-Treatment Eating (QC): 3 Oral Hygiene (QC): 3 Shower/Bathe Self (QC): 1 Upper Body Dressing (QC): 10 Lower Body Dressing (QC): 2 On/Off Footwear (QC): 1 Toileting Hygiene (QC): 2 Assessment/Plan Assessment and Plan Assess & Plan/Chief Complaint Assessment/Plan: Steroid induced myopathy Currently tapering off prednisone. Down to 20mg today Acute on Chronic renal failure s/p IVF Hypertensive Polymyalgia Rheumatica Chronic Bipolar Mood disorder with hx of don Hyperlipidemia Osteoarthritis Chronic anemia Hypercalcemia Generalized weakness DVT PPX: Lovenox, SCDs if pt can tolerate GI PPX: PPI 07/29/2022: Restart IVF this evening Monitor creat and calcium Very slow recovery expected (1) Steroid myopathy (2) Generalized weakness Status: Acute (3) Polymyalgia rheumatica Status: Acute (4) Dehydration Status: Acute (5) Essential hypertension (6) Mixed hyperlipidemia (7) Stage III chronic kidney disease (8) Acute kidney injury superimposed on chronic kidney disease CHRIS TORREZ DO Jul 29, 2022 05:39
[2022-07-29 07:22] VITALS: BP 143/88
[2022-07-29] MEDS: VITAMIN D3 25 MCG (1,000 UNITS) TABLET PO SCH ×2 (08:02→20:29)
[2022-07-29] MEDS: PANTOPRAZOLE 40 MG (PROTONIX) TAB PO SCH (08:02)
[2022-07-29] MEDS: CYANOCOBALAMIN 1,000 MCG (VITAMIN B-12) TABLET PO SCH (08:02)
[2022-07-29] MEDS: meTOprolol TARTRATE 25 MG (LOPRESSOR) TABLET PO SCH ×2 (08:02→20:29)
[2022-07-29] MEDS: FOLIC ACID 1 MG TAB PO SCH (08:02)
[2022-07-29] MEDS: DOCUSATE SODIUM 100 MG (COLACE) CAP PO SCH ×2 (08:03→20:30)
[2022-07-29] MEDS: polyethylene glycoL POWDER 17 GM (MIRALAX) PACK PO SCH ×2 (08:03→20:30)
[2022-07-29] MEDS: SENNA W/DOCUSATE (SENOKOT S) TABLET PO SCH ×2 (08:03→20:30)
[2022-07-29 08:32] LABS: BASOPHILS % (AUTO) 0 % (0-10); EOSINOPHILS % (AUTO) 0 % (0-10); HEMATOCRIT 33 % (35-52); HEMOGLOBIN 10.9 g/dL (11.5-16.0); LYMPHOCYTES % (AUTO) 13 % (12-44); MEAN CORPUSCULAR HEMOGLOBIN 35 pg (25-34); MEAN CORPUSCULAR HGB CONC 33 g/dL (32-36); MEAN CORPUSCULAR VOLUME 106 fL (80-99); MONOCYTES # (AUTO) 0.4 10^3/uL (0.0-1.0); MONOCYTES % (AUTO) 6 % (0-12); NEUTROPHILS # (AUTO) 5.6 10^3/uL (1.8-7.8); NEUTROPHILS % (AUTO) 76 % (42-75); PLATELET COUNT 207 10^3/uL (130-400); WHITE BLOOD COUNT 7.3 10^3/uL (4.3-11.0)
[2022-07-29 08:58] LABS: ALBUMIN 3.4 GM/DL (3.2-4.5); BILIRUBIN,TOTAL 0.5 MG/DL (0.1-1.0); CALCIUM 12.3 MG/DL (8.5-10.1); CREATININE SERUM 2.05 MG/DL (0.60-1.30); TOTAL PROTEIN 6.4 GM/DL (6.4-8.2)
--- NOTE | 2022-07-29 09:05 | Occupational Ther Daily Note ---
OT Current Status-Daily Note Subjective Pt in bathroom, agreeable to OT Tx. Pt's present throughout tx. Mental Status/Objective Patient Orientation: Person, Place, Situation ADL-Treatment Therapy Code Descriptions/Definitions Functional [place] Measure: 0=Not Assessed/NA 4=Minimal Assistance 1=Total Assistance 5=Supervision or Setup 2=Maximal Assistance 6=Modified [place] 3=Moderate Assistance 7=Complete IndependenceSCALE: Activities may be completed with or without assistive devices. 3-Wvvqryxtol-ccxtfxe completes the activity by him/herself with no assistance from a helper. 5-Set-up or Clean-up Assistance-helper sets up or cleans up; patient completes activity. [place] assists only prior to or following the activity. 4-Supervision or Touching Assistance-helper provides verbal cues and/or touching/steadying and/or contact guard assistance as patient completes activity. Assistance may be provided throughout the activity or intermittently. 3-Partial/Moderate Assistance-helper does LESS THAN HALF the effort. [place] lifts, holds or supports trunk or limbs, but provides less than half the effort. 2-Substantial/Maximal Assistance-helper does MORE THAN HALF the effort. [place] lifts or holds trunk or limbs and provides more than half the effort. 4-Msronbcqm-knzbpt does ALL the effort. Patient does none of the effort to complete the activity. Or, the assistance of 2 or more helpers is required for the patient to complete the activity. If activity was not attempted, code reason: 7-Patient Refused. 9-Not Applicable-not attempted and the patient did not perform the activity before the current illness, exacerbation or injury. 10-Not Attempted due to Environmental Limitations-(lack of equipment, weather restraints, etc.). 88-Not Attempted due to Medical Conditions or Safety Concerns. Eating (QC): 3 (Min A per pt report. ) Oral Hygiene (QC): 3 (Min A with holding basin, holding cup for rinsing, and assist to turn on electric toothbrush.) Toileting Hygiene (QC): 1 (2 person assist in stand. ) Toilet Transfer (QC): 3 (Mod A from toilet to w/c.) Other Treatment Pt on toilet, agreeable to OT Tx. Pt stood from toilet, moderate assistance, assist x2 in stand to perform hygiene and manage pants. Pt transferred to w/c, completed oral care at sink, noted tremors in RUE make task more difficult for pt. Pt taken to therapy gym, discussed different feeding utensils to increase pts success with meals, and pt trialed built up utensils, swivel utensils, and weighted utensils due to tremors in R hand. Pt used each type to scoop up beads from a container, pt reports most success with swivel and wishes to trial these with lunch. OT left utensils on pt's tray table for her to use, and informed pt's nurse. Pt told to let OT know how she like the utensils, and OT can assist pt with locating items to purchase for home use, she verbalized understanding. Pt removed beads from moderate resistance (red) theraputty in order to increase fine motor strength and coordination. Pt taken back to her room, stood from w/c with moderate assistance, then min A to transfer to recliner using FWW, step by step cues for UE/LE placement throughout transfer. Post tx, pt in recliner, call light in reach and all needs met. Education OT Patient Education: Correct positioning, Energy conservation, Modified ADL techniques, Progress toward Goal/Update tx plan, Purpose of tx/functional activities, Rehab process Teaching Recipient: Patient Teaching Methods: Discussion Response to Teaching: Verbalize Understanding OT Short Term Goals Short Term Goals Time Frame: Aug 11, 2022 Eatin Oral hygiene: 4 Toileting hygiene: 3 Shower/bathe self: 2 Upper body dressin Lower body dressin Putting on/taking off footwear: 2 OT [employer] Goals [employer] Goals Time Frame: Aug 20, 2022 Eating (QC): 4 Oral Hygiene (QC): 4 Toileting Hygiene (QC): 3 Shower/Bathe Self (QC): 3 Upper Body Dressing (QC): 3 Lower Body Dressing (QC): 3 On/Off Footwear (QC): 2 Additional Goals: 1-Demonstrate ADL Tasks, 2-Verbalize Understanding, 3- ImproveStrength/Jose 1=Demonstrate adherence to instructed precautions during ADL tasks. 2=Patient will verbalize/demonstrate understanding of assistive devices/modifications for ADL. 3=Patient will improve strength/tolerance for activity to enable patient to perform ADL's. OT Education/Plan Problem List/Assessment Assessment: Decreased Activ Tolerance, Decreased UE Strength, Impaired Coordination, Impaired Funct Balance, Impaired I ADL's, Impaired Self-Care Skills Discharge Recommendations Plan/Recommendations: Continue POC Treatment Plan/Plan of Care Patient would benefit from OT for education, treatment and training to promote independence in ADL's, mobility, safety and/or upper extremity function for ADL's. Plan of Care: ADL Retraining, Caregiver Training, Cognitive Retraining, Functional Mobility, Group Exercise/Act as Ind, UE Funct Exercise/Act, UE Neuromus Re-Ed/Coord, W/C Management Training Treatment Duration: Aug 20, 2022 Frequency: At least 5 of 7 days/Wk (IRF) Estimated Hrs Per Day: 1.5 hours per day Agreement: Yes Rehab Potential: Fair Time/GCodes Start Time: 07:45 Stop Time: 09:00 Total Time Billed (hr/min): 75 Billed Treatment Time 1, ADL 3 (45'), FA 2 (30') SERGEI HATCH OT Jul 29, 2022 09:05
[2022-07-29 11:02] VITALS: BP 143/88
--- NOTE | 2022-07-29 11:11 | ST Cognitive Linguistic Eval ---
Speech Evaluation-General Medical Diagnosis Polymyalgic Rheumatica, Steroid Induced Myopathy Onset Date: Jul 24, 2022 Therapy Diagnosis Therapy Diagnosis: Mildly Impaired Neurocognitive Skills Precautions Precautions: Fall Precautions/Isolations: Fall Prevention, Standard Precautions Referral Referring Physician: Dr. Pandya Reason for Referral: Evaluation/Treatment Medical History Pertinent Medical History: OA Current History The patient is a 71 year old female with a past medical history of chronic renal insufficiency, dehydration, and hypertension, who presented to in-patient rehab due to steroid induced myopathy. Reviewed History: Yes Social History Current Living Status: Spouse Speech PLF-Current Status Prior Level of Function The patient and the patient's spouse stated the patient has experienced intermittent confusion since the onset of her weakness. The patient feels the confusion may be medication related. Both individuals feel the patient's confusion is improving, however, her mentation has not returned to baseline. Subjective The patient was seated upright in her recliner, awake and alert upon entrance to her room by the clinician. The patient greeted the clinician appropriately and was agreeable to participation in the cognitive linguistic assessment. The patient's spouse was present at bedside and remained throughout the evaluation. Language Eval: Auditory Comprehends Simple Yes/No Ques: Functional Indent/Objects Multiple [place]: Functional Follows 1-Step Commands: Functional Follows General Conversations: Functional Language Eval: Verbal Language Completes Spontaneous Greeting: Functional Produces Auto, Serial Info: Functional Imitates Simple Words/Phrases: Functional Word Finding: Mild Requests Basic Needs: Functional States Basic Personal Info: Functional Language Evaluation: Reading Follows Simple Written Direct: Functional Language Evaluation: Writing Writes to Simple Dictation: Functional Cognitive Patient Orientation The patient was oriented to self, location, month, day of the week, date, and year by utilizing her phone which was present at bedside. Objective Cognitive Domain Attention: WNL Memory: Mild Problem Solving: Mild Executive Functions: Mild Visuospatial Skills: WNL Composite Severity Rating: Mild Clock Drawing Severity Rating: [facility] Objective Formal/Standardized Tests [facility] Mental Status Exam (UMS) Results The patient demonstrated a result of +25/30 on the SLUMS correlating to a mild neurocognitive impairment. Oral Motor/Speech Production The patient does not display dysarthria or apraxia of speech at this time. The patient is 100% intelligible in known and unknown contexts. Impression The patient demonstrated mild neurocognitive impairments in the areas of memory and problem solving. The patient requires increased time for comprehension processing, however, does respond appropriately following. Speech Patient Assess Expression of Ideas/Wants: Exhibits (3) Understanding Verbal Content: Usually Understands (3) Brief Interview-Mental Status: Yes Repetition of Three Words: Three (3) Temporal Orientation: Year: Correct (3) Temporal Orientation: Month: Accurate within 5 days(2) Temporal Orientation: Day: Correct (1) Recall : Wear to say "Sock": Yes, no cue required (2) Recall : Color: Yes, no cue required (2) Recall : Bed: Yes, no cue required (2) Memory/Recall Ability: Current season, Staff names and faces, That he or she is in a hsp/hsp unit Speech Short Term Goals Short Term Goals Short Term Goals 1. The patient will demonstrate 80% accuracy with functional memory exercises with mild clinician verbal cueing. Time Frame-STG: One Week. Speech Residential Goals Residential Goals 1. The patient will demonstrate improved cognitive skills for safe discharge to the least restrictive environment. Time Frame: Ten Days. Speech-Plan Treatment Plan Speech Therapy Treatment Plan: Continue Plan of Care Treatment Duration: Aug 11, 2022 Frequency: Modified Program (IRF) (Four to five times per week.) Estimated Hrs Per Day: .5 hour per day Rehab Potential: Guarded Safety Risks/Education Teaching Recipient: Patient, Significant Other Teaching Methods: Discussion Response to Teaching: Verbalize Understanding Education Topics Provided: Results of Nestor AGUIAR Time Speech Therapy Time In: 09:00 Speech Therapy Time Out: 09:30 Total Billed Time: 30 Billed Treatment Time 1, LIUDMILA CARRERA [facility] [address] Jul 29, 2022 11:11
--- NOTE | 2022-07-29 11:34 | Physical Therapy Daily Note ---
PT Daily Note-Current Subjective Pt. up in lift chair with ans ROSALES present and supportive. Long discussion regarding pts PLOF, husbands involvement in her care and what equipment she is use to at home. pt. has lift recline chair and FWW and BSC over toilet and bed cane on bed but bed is not adjustable. Family will measure the height of the bed from the floor and report for this DIRECTOR OF PRECLINICAL RESEARCH. Pt. states she is "not in any pain that I need to mention" Pain Location: No Pain Reported Mental Status Patient Orientation: Person, Place, Situation Transfers SCALE: Activities may be completed with or without assistive devices. 2-Nrcmjqvwqa-rkibfda completes the activity by him/herself with no assistance from a helper. 5-Set-up or Clean-up Assistance-helper sets up or cleans up; patient completes activity. [place] assists only prior to or following the activity. 4-Supervision or Touching Assistance-helper provides verbal cues and/or touching/steadying and/or contact guard assistance as patient completes activity. Assistance may be provided throughout the activity or intermittently. 3-Partial/Moderate Assistance-helper does LESS THAN HALF the effort. [place] lifts, holds or supports trunk or limbs, but provides less than half the effort. 2-Substantial/Maximal Assistance-helper does MORE THAN HALF the effort. [place] lifts or holds trunk or limbs and provides more than half the effort. 5-Giwjmbhma-zphlnz does ALL the effort. Patient does none of the effort to complete the activity. Or, the assistance of 2 or more helpers is required for the patient to complete the activity. If activity was not attempted, code reason: 7-Patient Refused. 9-Not Applicable-not attempted and the patient did not perform the activity before the current illness, exacerbation or injury. 10-Not Attempted due to Environmental Limitations-(lack of equipment, weather restraints, etc.). 88-Not Attempted due to Medical Conditions or Safety Concerns. Sit to Stand (QC): 4 Chair/Qnz-ip-Festd Xfer(QC): 4 Toilet Transfer (QC): 3 lift recline chair accommodates pt well and she required only min asst to stand, toilet is elevated by BSC but pt. had more difficulty with this TRF and required mod asst and much instruction. pt. briefly became anxious but worked through it and needed mod assist to over power her retropulsivity Gait Training Does the Patient Walk?: Yes Walk 10 feet (QC): 4 Gait Persons Needed: 1 Gait Assistive Device: FWW 12 feet x 4 FWW, slow, uneven step length, turns and backing to chair require instruction Exercises Supine Ex: Ankle pumps, Quad Set, Glut sets, Heel Slides, Short Arc Quads, Scooting (up in recliner in head full back position, gravity assisted), Straight leg raise (indep!!!), Hip abd/add Supine Reps: 12 Seated Therapy Exercises: Sit to stand, Long arc quads Seated Reps: 10 Treatments introduction to lift recline chair in full back position, supine LE ex, sit to stand, chair and toilet, gait Assessment Current Status: Good Progress marked progress, improved gait and TRFs from sit to stand, good discussion with family about expectations and home environment PT Short Term Goals Short Term Goals Time Frame: Aug 04, 2022 Roll Left & Right: 3 (Nitesh) Sit to lyin (Ileana) Lying to sitting on side of be: 3 (Ileana) Sit to stand: 3 (Ileana) Chair/poz-pq-wppcu transfer: 4 (CGA) Walk 10 feet: 4 (CGA) Walk 50 feet with two turns: 4 (CGA) PT Jail Goals Jail Goals PT Diamond Polisher Goals Time Frame: Aug 18, 2022 Roll Left & Right (QC): 4 (SBA) Sit to Lying (QC): 4 (SBA) Lying-Sitting on Side/Bed(QC): 4 (SBA) Sit to Stand (QC): 4 (SBA) Chair/Btw-io-Nvzvq Xfer(QC): 4 (BA) Toilet Transfer (QC): 4 (SBA) Car Transfer (QC): 4 (SBA) Does the Patient Walk: Yes Walk 10 feet (QC): 4 (SBA) Walk 50ft with 2 Turns (QC): 4 (SBA) Walk 150 ft (QC): 4 (SBA) Walking 10ft on Uneven Surface: 4 (SBA) 1 Step (curb) (QC): 4 (CGA) 4 Steps (QC): 4 (CGA) 12 Steps (QC): 88 Picking up an Object (QC): 4 (SBA using shot core drill operator helper) Wheel 50 feet with 2 turns (QC: 9 Wheel 150 feet: 9 PT Plan Treatment/Plan Treatment Plan: Continue Plan of Care Treatment Plan: Bed Mobility, Education, Functional Activity Jose, Functional Strength, Group Therapy, Gait, Safety, Therapeutic Exercise, Transfers Treatment Duration: Aug 04, 2022 Frequency: Modified Program (IRF) (04/06) Estimated Hrs Per Day: 1.5 hours per day Patient and/or Family Agrees t: Yes Safety Risks/Education Patient Education: Gait Training, Transfer Techniques, Correct Positioning, Disease Process, Safety Issues Teaching Recipient: Patient, Family Teaching Methods: Demonstration, Discussion Response to Teaching: Verbalize Understanding, Return Demonstration, Rein forcement Needed Time/GCodes Time In: 1030 Time Out: 1130 Total Billed Treatment Time: 60 Total Billed Treatment 1,FA30m,GT15m,EX15m PIERRE GONZALES DIRECTOR OF PRECLINICAL RESEARCH Jul 29, 2022 11:34
[2022-07-29 13:15] VITALS: BP 139/93
--- NOTE | 2022-07-29 13:18 | Physical Therapy Daily Note ---
PT Daily Note-Current Subjective Pt. sitting up in recliner eating lunch. Pt. comments "it is tasty and Yanet had an appetite for it but I'm struggling to get it on the fork and in my mouth" Pt. requests to toilet Pain Location: No Pain Reported Mental Status pt. apparently forgets that OT reviewed eating skills and utensils with pt. this AM. Per OT several types of utensils were trialed using beads and the swivel type were decided on. Pt. forgot this when lunch arrived Transfers SCALE: Activities may be completed with or without assistive devices. 6-Ostgiganvo-lpgphcb completes the activity by him/herself with no assistance from a helper. 5-Set-up or Clean-up Assistance-helper sets up or cleans up; patient completes activity. [place] assists only prior to or following the activity. 4-Supervision or Touching Assistance-helper provides verbal cues and/or touching/steadying and/or contact guard assistance as patient completes activity. Assistance may be provided throughout the activity or intermittently. 3-Partial/Moderate Assistance-helper does LESS THAN HALF the effort. [place] lifts, holds or supports trunk or limbs, but provides less than half the effort. 2-Substantial/Maximal Assistance-helper does MORE THAN HALF the effort. [place] lifts or holds trunk or limbs and provides more than half the effort. 0-Ghslodcsp-fkuwux does ALL the effort. Patient does none of the effort to complete the activity. Or, the assistance of 2 or more helpers is required for the patient to complete the activity. If activity was not attempted, code reason: 7-Patient Refused. 9-Not Applicable-not attempted and the patient did not perform the activity before the current illness, exacerbation or injury. 10-Not Attempted due to Environmental Limitations-(lack of equipment, weather restraints, etc.). 88-Not Attempted due to Medical Conditions or Safety Concerns. sit to stand from recline chair and BSC over toilet min assist Gait Training Does the Patient Walk?: Yes Gait Assistive Device: FWW 15ft x 2 to bthrm and back CGA Treatments eating efficiently and use of utensils was focus of Rx with pt having noted tremor in right dominant hand making use of utensil in that hand very difficult even after discovering the swivel godinez. Pt. used right hand as in finger food style but attempted use of utensils in left hand with greater success. Pt. picked up pieces of chicken with right hand, as well as a few cooked carrots but she had better efficiency using a combo of swivel and std utensils in left hand for cobbler and rice . Pt requested to use bthrm, TRFd sit to stand with CGA recliner and toilet, needed mod asst with pants up down but did do the cleaning and walked to sink after and washed hands min asst, back in recliner after Rx with crowe at hand and plans to finish eating Assessment Current Status: Good Progress PT Short Term Goals Short Term Goals Time Frame: Aug 04, 2022 Roll Left & Right: 3 (Nitesh) Sit to lyin (Ileana) Lying to sitting on side of be: 3 (Ileana) Sit to stand: 3 (Ileana) Chair/dkw-ox-xjtyx transfer: 4 (CGA) Walk 10 feet: 4 (CGA) Walk 50 feet with two turns: 4 (CGA) PT Geothermal System Installer Goals Geothermal System Installer Goals PT Geothermal System Installer Goals Time Frame: Aug 18, 2022 Roll Left & Right (QC): 4 (SBA) Sit to Lying (QC): 4 (SBA) Lying-Sitting on Side/Bed(QC): 4 (SBA) Sit to Stand (QC): 4 (SBA) Chair/Ovr-nb-Grcfq Xfer(QC): 4 (BA) Toilet Transfer (QC): 4 (SBA) Car Transfer (QC): 4 (SBA) Does the Patient Walk: Yes Walk 10 feet (QC): 4 (SBA) Walk 50ft with 2 Turns (QC): 4 (SBA) Walk 150 ft (QC): 4 (SBA) Walking 10ft on Uneven Surface: 4 (SBA) 1 Step (curb) (QC): 4 (CGA) 4 Steps (QC): 4 (CGA) 12 Steps (QC): 88 Picking up an Object (QC): 4 (SBA using wood and wood products labourer) Wheel 50 feet with 2 turns (QC: 9 Wheel 150 feet: 9 PT Plan Treatment/Plan Treatment Plan: Continue Plan of Care Treatment Plan: Bed Mobility, Education, Functional Activity Jose, Functional Strength, Group Therapy, Gait, Safety, Therapeutic Exercise, Transfers Treatment Duration: Aug 04, 2022 Frequency: Modified Program (IRF) (04/06) Estimated Hrs Per Day: 1.5 hours per day Patient and/or Family Agrees t: Yes Safety Risks/Education Patient Education: Gait Training, Transfer Techniques, Correct Positioning, Safety Issues Teaching Recipient: Patient Teaching Methods: Demonstration, Discussion Response to Teaching: Verbalize Understanding, Return Demonstration, Reinforcement Needed use of eating adaptive utensils and compensatory eating styles Time/GCodes Time In: 1235 Time Out: 1310 Total Billed Treatment Time: 35 Total Billed Treatment 1,FA35m PIERRE GONZALES HOUSING ASSISTANT PROPERTY MANAGER Jul 29, 2022 13:18
[2022-07-29 20:15] VITALS: BP 174/77
[2022-07-29] MEDS: ENOXAPARIN INJECTION 30 MG/0.3 ML SYR SC SCH (20:28)
[2022-07-29] MEDS: DIVALPROEX EXT RELEASE 250 MG (DEPAKOTE ER) TAB PO SCH (20:29)
[2022-07-29] MEDS: predniSONE 20 MG TAB PO SCH (20:30)
[2022-07-29] MEDS: BRIMONIDINE 0.15% OU SCH (20:30)
[2022-07-29] MEDS ORDERED: PATIENT MAY USE OWN MED,SINGLE MED OP SCH (21:00)
[2022-07-29] MEDS: 1/2 NS IV SOLUTION 1,000 ML IV SCH (22:22)
--- NOTE | 2022-07-30 06:23 | PM&R Progress Note ---
Subjective HPI/CC On Admission Date Seen by Provider: Jul 30, 2022 Time Seen by Provider: 10:30 Subjective/Events-last exam 07/30/2022: Pt is doing a lot better Midline placed Very weak IV fluids will continue Will monitor pt closely 07/29/2022: Doing a bit better Very weak Chronically ill No pain reported except muscles Eating a bit better BM+ Urination good Review of Systems General: Fatigue, Malaise Objective Exam Vital Signs Vital Signs Date Time Temp Pulse Resp B/P (MAP) Pulse Ox O2 Delivery O2 Flow Rate FiO2 07/30/22 20:02 37.2 100 18 160/92 (114) 93 Room Air 07/30/22 10:45 0.00 07/29/22 11:02 21 Capillary Refill : General Appearance: WD/WN, Anxious, Chronically ill, Mild Distress, Other (tremors noted, frail, pale, very debilitated) HEENT: PERRL/EOMI, Normal ENT Inspection, Pharynx Normal Neck: Full Range of Motion, Normal Inspection, Non Tender, Supple, Carotid Bruit Respiratory: Chest Non Tender, Lungs Clear, Normal Breath Sounds, No Accessory Muscle Use, No Respiratory Distress Cardiovascular: Regular Rate, Rhythm, No Edema, No Gallop, No JVD, No Murmur, Normal Peripheral Pulses Gastrointestinal: Normal Bowel Sounds, No Organomegaly, No Pulsatile Mass, Non Tender, Soft Back: Normal Inspection, No CVA Tenderness, No Vertebral Tenderness Extremity: Normal Capillary Refill, Normal Inspection, Normal Range of Motion, Non Tender, No Calf Tenderness, No Pedal Edema, Other (limited ROM all extremit ies) Neurologic/Psychiatric: Alert, Oriented x3, software engineering project manager II-XII Norm as Tested, De pressed Affect, Motor Weakness (severe weakness 3/5 all extremities and torso ROM) Skin: Normal Color, Warm/Dry Lymphatic: No Adenopathy Results/Procedures Lab Laboratory Tests 07/30/22 09:15 Patient resulted labs reviewed. FIM Transfers Therapy Code Descriptions/Definitions Functional [place] Measure: 0=Not Assessed/NA 4=Minimal Assistance 1=Total Assistance 5=Supervision or Setup 2=Maximal Assistance 6=Modified [place] 3=Moderate Assistance 7=Complete IndependenceSCALE: Activities may be completed with or without assistive devices. 7-Omplgirqxi-lqonzwp completes the activity by him/herself with no assistance from a helper. 5-Set-up or Clean-up Assistance-helper sets up or cleans up; patient completes activity. [place] assists only prior to or following the activity. 4-Supervision or Touching Assistance-helper provides verbal cues and/or touching/steadying and/or contact guard assistance as patient completes activity. Assistance may be provided throughout the activity or intermittently. 3-Partial/Moderate Assistance-helper does LESS THAN HALF the effort. [place] lifts, holds or supports trunk or limbs, but provides less than half the effort. 2-Substantial/Maximal Assistance-helper does MORE THAN HALF the effort. [place] lifts or holds trunk or limbs and provides more than half the effort. 3-Ngcidjhzr-momteh does ALL the effort. Patient does none of the effort to complete the activity. Or, the assistance of 2 or more helpers is required for the patient to complete the activity. If activity was not attempted, code reason: 7-Patient Refused. 9-Not Applicable-not attempted and the patient did not perform the activity before the current illness, exacerbation or injury. 10-Not Attempted due to Environmental Limitations-(lack of equipment, weather restraints, etc.). 88-Not Attempted due to Medical Conditions or Safety Concerns. Roll Left to Right (QC): 2 Sit to Lying (QC): 2 Sit to Stand (QC): 4 Chair/Vtf-cc-Pwedp Xfer(QC): 4 Car Transfer (QC): 3 Gait Training Does the Patient Walk?: Yes Walk 10 feet (QC): 4 Walk 50 ft with 2 Turns(QC): 88 Walk 150 ft (QC): 88 Walking 10ft/uneven surface-QC: 3 Gait Persons Needed: 1 Gait Assistive Device: FWW Wheelchair Training Does the Pt Use a Wheelchair?: Yes Wheel 50 ft with 2 turns (QC): 2 Wheel 150 ft (QC): 2 Type of Wheelchair: Manual Stair Training 1 Step (curb) (QC): 88 4 Steps (QC): 88 12 Steps (QC): 88 Balance Picking up an Object (QC): 88 (patient cannot do even with a electrician supervisor substation due to retropulsion when standing) ADL-Treatment Eating (QC): 3 (Min A per pt report. ) Oral Hygiene (QC): 3 (Min A with holding basin, holding cup for rinsing, and assist to turn on electric toothbrush.) Shower/Bathe Self (QC): 1 Upper Body Dressing (QC): 10 Lower Body Dressing (QC): 2 On/Off Footwear (QC): 1 Toileting Hygiene (QC): 1 (2 person assist in stand. ) Toilet Transfer (QC): 3 (Mod A from toilet to w/c.) Assessment/Plan Assessment and Plan Assess & Plan/Chief Complaint Assessment/Plan: Steroid induced myopathy Currently tapering off prednisone. Down to 20mg today Acute on Chronic renal failure s/p IVF Hypertensive Polymyalgia Rheumatica Chronic Bipolar Mood disorder with hx of don Hyperlipidemia Osteoarthritis Chronic anemia Hypercalcemia Generalized weakness DVT PPX: Lovenox, SCDs if pt can tolerate GI PPX: PPI 07/29/2022: Restart IVF this evening Monitor creat and calcium Very slow recovery expected 07/30/2022: Monitor closely IVF Monitor creat (1) Steroid myopathy (2) Generalized weakness Status: Acute (3) Polymyalgia rheumatica Status: Acute (4) Dehydration Status: Acute (5) Essential hypertension (6) Mixed hyperlipidemia (7) Stage III chronic kidney disease (8) Acute kidney injury superimposed on chronic kidney disease CHRIS TORREZ DO Jul 30, 2022 06:23
[2022-07-30 07:38] VITALS: BP 160/80
[2022-07-30 07:42] VITALS: BP 160/80
[2022-07-30] MEDS: meTOprolol TARTRATE 25 MG (LOPRESSOR) TABLET PO SCH ×2 (09:15→20:54)
[2022-07-30] MEDS: PANTOPRAZOLE 40 MG (PROTONIX) TAB PO SCH (09:15)
[2022-07-30] MEDS: FOLIC ACID 1 MG TAB PO SCH (09:15)
[2022-07-30] MEDS: VITAMIN D3 25 MCG (1,000 UNITS) TABLET PO SCH ×2 (09:15→20:54)
[2022-07-30] MEDS: CYANOCOBALAMIN 1,000 MCG (VITAMIN B-12) TABLET PO SCH (09:15)
[2022-07-30] MEDS: DOCUSATE SODIUM 100 MG (COLACE) CAP PO SCH ×3 (09:17→21:19)
[2022-07-30] MEDS: BRIMONIDINE 0.15% OU SCH ×2 (09:18→20:56)
--- NOTE | 2022-07-30 09:25 | Occupational Ther Daily Note ---
OT Current Status-Daily Note Subjective Pt was eating breakfast upon arrival. She agreed to OT. Appearance Pt was left in bathroom, seated at sink, with speech present in room. Mental Status/Objective Patient Orientation: Person, Place, Time, Situation Attachments: IV ADL-Treatment Therapy Code Descriptions/Definitions Functional [place] Measure: 0=Not Assessed/NA 4=Minimal Assistance 1=Total Assistance 5=Supervision or Setup 2=Maximal Assistance 6=Modified [place] 3=Moderate Assistance 7=Complete IndependenceSCALE: Activities may be completed with or without assistive devices. 3-Gpotvtqvjh-fwiklqg completes the activity by him/herself with no assistance from a helper. 5-Set-up or Clean-up Assistance-helper sets up or cleans up; patient completes activity. [place] assists only prior to or following the activity. 4-Supervision or Touching Assistance-helper provides verbal cues and/or touching/steadying and/or contact guard assistance as patient completes activity. Assistance may be provided throughout the activity or intermittently. 3-Partial/Moderate Assistance-helper does LESS THAN HALF the effort. [place] lifts, holds or supports trunk or limbs, but provides less than half the effort. 2-Substantial/Maximal Assistance-helper does MORE THAN HALF the effort. [place] lifts or holds trunk or limbs and provides more than half the effort. 1-Rxjngonzw-kiluxh does ALL the effort. Patient does none of the effort to complete the activity. Or, the assistance of 2 or more helpers is required for the patient to complete the activity. If activity was not attempted, code reason: 7-Patient Refused. 9-Not Applicable-not attempted and the patient did not perform the activity before the current illness, exacerbation or injury. 10-Not Attempted due to Environmental Limitations-(lack of equipment, weather restraints, etc.). 88-Not Attempted due to Medical Conditions or Safety Concerns. Eating (QC): 3 Oral Hygiene (QC): 3 Upper Body Dressing (QC): 2 Lower Body Dressing (QC): 2 On/Off Footwear: 1 Toileting Hygiene (QC): 2 Toilet Transfer (QC): 3 Pt was eating slumped over in bed. Education on proper positioning for eating was provided to pt and spouse. Sit<>stand transfers were initially mod assist x2, improving to mod assist x1 by end of session. She transferred to w/c to finish eating. 1 lb hand weight was donned to R wrist to potentially decrease hand tremors with eating; no decrease in tremors was noted. She needed min verbal cues for correct orientation of shirt, due to placing head through arm hole. Assistance needed to thread BUE's through sleeves and pull down around torso. Education on preferred technique for improved performance. Dependent to thread BLE's into LB clothing. Max a to pull clothing up to waist with cues to alternate one hand on grab bar. Pt fatigues quickly, thus needing assist to manage fully over hips. Grooming tasks performed seated at sink. Set up assist for brushing hair and min cues/ assist for brushing teeth. Education OT Patient Education: Correct positioning, Energy conservation, Instructions to caregiver, Modified ADL techniques, Progress toward Goal/Update tx plan, Purpose of tx/functional activities, Rehab process, Safety issues, Transfer techniques Teaching Recipient: Patient, Family Teaching Methods: Demonstration, Discussion Response to Teaching: Verbalize Understanding, Return Demonstration, Reinforcement Needed OT Short Term Goals Short Term Goals Time Frame: Aug 11, 2022 Eatin Oral hygiene: 4 Toileting hygiene: 3 Shower/bathe self: 2 Upper body dressin Lower body dressin Putting on/taking off footwear: 2 OT Intermediate Goals Intermediate Goals Time Frame: Aug 20, 2022 Eating (QC): 4 Oral Hygiene (QC): 4 Toileting Hygiene (QC): 3 Shower/Bathe Self (QC): 3 Upper Body Dressing (QC): 3 Lower Body Dressing (QC): 3 On/Off Footwear (QC): 2 Additional Goals: 1-Demonstrate ADL Tasks, 2-Verbalize Understanding, 3- ImproveStrength/Jose 1=Demonstrate adherence to instructed precautions during ADL tasks. 2=Patient will verbalize/demonstrate understanding of assistive devices/mod ifications for ADL. 3=Patient will improve strength/tolerance for activity to enable patient to perform ADL's. OT Education/Plan Problem List/Assessment Assessment: Decreased Activ Tolerance, Decreased Safety Aware, Decreased UE Strength, Dependent Transfers, Impaired Bed Mobility, Impaired Coordination, Impaired Funct Balance, Impaired I ADL's, Impaired Self-Care Skills, Restricted Funct UE ROM Discharge Recommendations Plan/Recommendations: Continue POC Therapy Discharge Recommendati: Assisted Living, Bath Aide, Post Acute OT Treatment Plan/Plan of Care Treatment,Training & Education: Yes Patient would benefit from OT for education, treatment and training to promote independence in ADL's, mobility, safety and/or upper extremity function for ADL's. Plan of Care: ADL Retraining, Caregiver Training, Cognitive Retraining, Functional Mobility, Group Exercise/Act as Ind, UE Funct Exercise/Act, UE Neuromus Re-Ed/Coord, W/C Management Training Treatment Duration: Aug 20, 2022 Frequency: At least 5 of 7 days/Wk (IRF) Estimated Hrs Per Day: 1.5 hours per day Agreement: Yes Rehab Potential: Guarded Time/GCodes Start Time: 07:30 Stop Time: 08:30 Total Time Billed (hr/min): 60 Billed Treatment Time 1 visit ADL x4 Kami Marcus OT Jul 30, 2022 09:25
--- NOTE | 2022-07-30 09:29 | Speech Therapy Daily Note ---
Speech Daily Progress Note Subjective Date Seen by Provider: Jul 30, 2022 Time Seen by Provider: 08:30 The patient was seated upright in her wheelchair, brushing her teeth upon entrance to her room by the clinician. The patient greeted the clinician and was agreeable to participation in the cognitive linguistic treatment session. Objective The patient supported her own toothbrush for cleaning, as well as, a small glass of water to rinse. The clinician provided the basin following the rinse and the patient requested the clinician place the items on the counter afterwards. The clinician wet the washcloth and provided to the patient. The patient washed her own face, providing the washcloth to the clinician following. The patient requires additional processing time for full comprehension and complete responses. The patient's movements are slow and deliberate, however, the patient verbalizes motivation and desire to complete each task as independently as possible. The patient follows each one step commands with high accuracy and mild clinician cueing. Assessment Assessment Current Status: Fair Progress Treatment Plan Continue Plan of Care Speech Short Term Goals Short Term Goals Short Term Goals 1. The patient will demonstrate 80% accuracy with functional memory exercises with mild clinician verbal cueing. Time Frame-STG: One Week. Speech Pitch Flaker Goals Pitch Flaker Goals 1. The patient will demonstrate improved cognitive skills for safe discharge to the least restrictive environment. Time Frame: Ten Days. Speech-Plan Treatment Plan Speech Therapy Treatment Plan: Continue Plan of Care Treatment Duration: Jul 29, 2022 Frequency: Modified Program (IRF) Estimated Hrs Per Day: Other Rehab Potential: Guarded Safety Risks/Education Teaching Recipient: Patient Teaching Methods: Discussion Response to Teaching: Verbalize Understanding Education Topics Provided: Recommendations, Plan of Care Time Speech Therapy Time In: 08:30 Speech Therapy Time Out: 09:00 Total Billed Time: 30 Billed Treatment Time 1LIUDMILA ELIZABETH ST Jul 30, 2022 09:29
[2022-07-30 09:42] LABS: ALBUMIN 3.4 GM/DL (3.2-4.5); POTASSIUM 4.6 MMOL/L (3.6-5.0)
[2022-07-30 09:43] LABS: CALCIUM 11.7 MG/DL (8.5-10.1)
[2022-07-30 09:47] LABS: BILIRUBIN,TOTAL 0.6 MG/DL (0.1-1.0)
[2022-07-30 09:48] LABS: CREATININE SERUM 1.95 MG/DL (0.60-1.30)
[2022-07-30 09:57] LABS: VALPROIC ACID 66.4 UG/ML (50.0-100.0)
[2022-07-30] MEDS: polyethylene glycoL POWDER 17 GM (MIRALAX) PACK PO SCH ×2 (10:57→20:55)
[2022-07-30] MEDS: SENNA W/DOCUSATE (SENOKOT S) TABLET PO SCH ×3 (10:58→21:19)
--- NOTE | 2022-07-30 12:02 | Physical Therapy Daily Note ---
PT Daily Note-Current Subjective Pt. looking and feeling more confident about her function. No c/o pain during Rx. Pain Location: No Pain Reported Mental Status Patient Orientation: Normal For Age Transfers SCALE: Activities may be completed with or without assistive devices. 6-Zbdekvmmxc-zzebfef completes the activity by him/herself with no assistance from a helper. 5-Set-up or Clean-up Assistance-helper sets up or cleans up; patient completes activity. [place] assists only prior to or following the activity. 4-Supervision or Touching Assistance-helper provides verbal cues and/or touching/steadying and/or contact guard assistance as patient completes activity. Assistance may be provided throughout the activity or intermittently. 3-Partial/Moderate Assistance-helper does LESS THAN HALF the effort. [place] lifts, holds or supports trunk or limbs, but provides less than half the effort. 2-Substantial/Maximal Assistance-helper does MORE THAN HALF the effort. [place] lifts or holds trunk or limbs and provides more than half the effort. 1-Tpanqcxph-sgamdi does ALL the effort. Patient does none of the effort to complete the activity. Or, the assistance of 2 or more helpers is required for the patient to complete the activity. If activity was not attempted, code reason: 7-Patient Refused. 9-Not Applicable-not attempted and the patient did not perform the activity before the current illness, exacerbation or injury. 10-Not Attempted due to Environmental Limitations-(lack of equipment, weather restraints, etc.). 88-Not Attempted due to Medical Conditions or Safety Concerns. Roll Left & Right (QC): 4 Lying to Sitting/Side of Bed(Q: 5 (w HOB up) Sit to Stand (QC): 4 Chair/Eza-fh-Ykkvw Xfer(QC): 4 all seat heights raised for ease of TRF sit to stand. ot of bed TRF improved Gait Training Does the Patient Walk?: Yes Walk 10 feet (QC): 4 Walk 50 ft with 2 Turns(QC): 4 Gait Persons Needed: 1 Gait Assistive Device: FWW Gait 30 ft x2, 50 ft x1, 10 ft x1, slow, flexed over FWW , slow, small steps Exercises Seated Therapy Exercises: Ankle pumps, Sit to stand, Long arc quads, Hip flexion, Hip abd/add Seated Reps: 10 NuStep Minutes: 10 NuStep Workload: 1 Treatments bed mob, TRFs, gait, therex, euc in joint preservation, assisted in ordering lunch meal that is finger friendly foods Assessment Current Status: Good Progress PT Short Term Goals Short Term Goals Time Frame: Aug 04, 2022 Roll Left & Right: 3 (Nitesh) Sit to lyin (Ileana) Lying to sitting on side of be: 3 (Ileana) Sit to stand: 3 (Ileana) Chair/xdn-xn-waczj transfer: 4 (CGA) Walk 10 feet: 4 (CGA) Walk 50 feet with two turns: 4 (CGA) PT Spanish Medical Interpreter Goals Halfway Goals PT Halfway Goals Time Frame: Aug 18, 2022 Roll Left & Right (QC): 4 (SBA) Sit to Lying (QC): 4 (SBA) Lying-Sitting on Side/Bed(QC): 4 (SBA) Sit to Stand (QC): 4 (SBA) Chair/Jka-vu-Fhhvw Xfer(QC): 4 (BA) Toilet Transfer (QC): 4 (SBA) Car Transfer (QC): 4 (SBA) Does the Patient Walk: Yes Walk 10 feet (QC): 4 (SBA) Walk 50ft with 2 Turns (QC): 4 (SBA) Walk 150 ft (QC): 4 (SBA) Walking 10ft on Uneven Surface: 4 (SBA) 1 Step (curb) (QC): 4 (CGA) 4 Steps (QC): 4 (CGA) 12 Steps (QC): 88 Picking up an Object (QC): 4 (SBA using utilities and maintenance supervisor) Wheel 50 feet with 2 turns (QC: 9 Wheel 150 feet: 9 PT Plan Treatment/Plan Treatment Plan: Continue Plan of Care Treatment Plan: Bed Mobility, Education, Functional Activity Jose, Functional Strength, Group Therapy, Gait, Safety, Therapeutic Exercise, Transfers Treatment Duration: Aug 04, 2022 Frequency: Modified Program (IRF) (04/06) Estimated Hrs Per Day: 1.5 hours per day Patient and/or Family Agrees t: Yes Safety Risks/Education Patient Education: Gait Training, Transfer Techniques, Reviewed Precautions, Correct Positioning, Safety Issues Teaching Recipient: Patient Teaching Methods: Demonstration, Discussion Response to Teaching: Verbalize Understanding, Return Demonstration, Reinforcement Needed Time/GCodes Time In: 1100 Time Out: 1200 Total Billed Treatment Time: 60 Total Billed Treatment 1,FA25m,EX15m,GT20m PEIRRE GONZALES CARD GRADER Jul 30, 2022 12:02
[2022-07-30] MEDS: 1/2 NS IV SOLUTION 1,000 ML IV SCH (12:31)
--- NOTE | 2022-07-30 14:48 | Therapy Group Daily Note ---
Therapy Daily Group Note Patient Education Topic Exercises, Other List Below (pain and mmanagement of, ARU expectaions and practices) Exercises LE Seated Exercise, Stretching, UE Exercise Session Ratio (pt:therapist): 3:1 Goal of Session: Education on ARU Expectations, Other (list) (pain mgmt) Goal Met for this Session: Yes Pt Benefit of Group: Contributions to Others, F/U Use of Strategies @Home, Socialization Other/Notes Pt. participated in group PT OT session this date, pt. came and went via w/c and assist . Pts all introduced themselves, sharing name, home town and experiences they have had with a fall and the results. Pts all participated in U&L extremity seated exercise and stretching and relaxation breathing techniques. Education was done regarding chronic and acute pain , the bodies response, and some of the ways ARU staff will help pts manage pain. During group and after in room pt became more confused , asking what time she should come back tomorrow and when her ride would be here. Pt.was reoriented to situation etc, nursing advised as to this change in mental status. pt. in room after session , assisted to bed, with crowe at hand and needs met Start Time: 13:00 Stop Time: 14:20 Total Billed Treatment Time: 80 Total Billed Treatment 1,GRP PIERRE GONZALES DEALER SUPPORT TECHNICIAN Jul 30, 2022 14:48
[2022-07-30 20:02] VITALS: BP 160/92
[2022-07-30] MEDS: ENOXAPARIN INJECTION 30 MG/0.3 ML SYR SC SCH (20:54)
[2022-07-30] MEDS: predniSONE 20 MG TAB PO SCH (20:54)
[2022-07-30] MEDS: DIVALPROEX EXT RELEASE 250 MG (DEPAKOTE ER) TAB PO SCH (20:54)
[2022-07-31] MEDS: 1/2 NS IV SOLUTION 1,000 ML IV SCH ×2 (01:49→13:57)
[2022-07-31 07:00] VITALS: BP 135/70
--- NOTE | 2022-07-31 07:22 | PM&R Progress Note ---
Subjective HPI/CC On Admission Date Seen by Provider: Jul 31, 2022 Time Seen by Provider: 10:00 Subjective/Events-last exam 07/31/2022: Doing better each day No pain reported Moving better Right lower leg wound appears dried up Eating ok IVF continue due to hypercalcemia from Vit D toxicity 07/30/2022: Pt is doing a lot better Midline placed Very weak IV fluids will continue Will monitor pt closely 07/29/2022: Doing a bit better Very weak Chronically ill No pain reported except muscles Eating a bit better BM+ Urination good Review of Systems General: Fatigue, Malaise Neurological: Weakness, Incoordination Objective Exam Vital Signs Vital Signs Date Time Temp Pulse Resp B/P (MAP) Pulse Ox O2 Delivery O2 Flow Rate FiO2 07/31/22 11:48 93 Room Air 07/31/22 07:00 36.7 82 16 135/70 (91) 07/30/22 10:45 0.00 07/29/22 11:02 21 Capillary Refill : General Appearance: WD/WN, Anxious, Chronically ill, Mild Distress, Other (tremors noted, frail, pale, very debilitated) HEENT: PERRL/EOMI, Normal ENT Inspection, Pharynx Normal Neck: Full Range of Motion, Normal Inspection, Non Tender, Supple, Carotid Bruit Respiratory: Chest Non Tender, Lungs Clear, Normal Breath Sounds, No Accessory Muscle Use, No Respiratory Distress Cardiovascular: Regular Rate, Rhythm, No Edema, No Gallop, No JVD, No Murmur, Normal Peripheral Pulses Gastrointestinal: Normal Bowel Sounds, No Organomegaly, No Pulsatile Mass, Non Tender, Soft Back: Normal Inspection, No CVA Tenderness, No Vertebral Tenderness Extremity: Normal Capillary Refill, Normal Inspection, Normal Range of Motion, Non Tender, No Calf Tenderness, No Pedal Edema, Other (limited ROM all ex tremities) Neurologic/Psychiatric: Alert, Oriented x3, land leveler II-XII Norm as Tested, Depressed Affect, Motor Weakness (severe weakness 3/5 all extremities and torso ROM) Skin: Normal Color, Warm/Dry Lymphatic: No Adenopathy Results/Procedures Lab Patient resulted labs reviewed. FIM Transfers Therapy Code Descriptions/Definitions Functional [place] Measure: 0=Not Assessed/NA 4=Minimal Assistance 1=Total Assistance 5=Supervision or Setup 2=Maximal Assistance 6=Modified [place] 3=Moderate Assistance 7=Complete IndependenceSCALE: Activities may be completed with or without assistive devices. 5-Rmzqnqrzqw-aoljdvf completes the activity by him/herself with no assistance from a helper. 5-Set-up or Clean-up Assistance-helper sets up or cleans up; patient completes activity. [place] assists only prior to or following the activity. 4-Supervision or Touching Assistance-helper provides verbal cues and/or touching/steadying and/or contact guard assistance as patient completes activity. Assistance may be provided throughout the activity or intermittently. 3-Partial/Moderate Assistance-helper does LESS THAN HALF the effort. [place] lifts, holds or supports trunk or limbs, but provides less than half the effort. 2-Substantial/Maximal Assistance-helper does MORE THAN HALF the effort. [place] lifts or holds trunk or limbs and provides more than half the effort. 8-Dkmgqnhzy-vhgtue does ALL the effort. Patient does none of the effort to complete the activity. Or, the assistance of 2 or more helpers is required for the patient to complete the activity. If activity was not attempted, code reason: 7-Patient Refused. 9-Not Applicable-not attempted and the patient did not perform the activity before the current illness, exacerbation or injury. 10-Not Attempted due to Environmental Limitations-(lack of equipment, weather restraints, etc.). 88-Not Attempted due to Medical Conditions or Safety Concerns. Roll Left to Right (QC): 4 Sit to Lying (QC): 2 Sit to Stand (QC): 4 Chair/Jhz-do-Gogtu Xfer(QC): 4 Car Transfer (QC): 3 Gait Training Does the Patient Walk?: Yes Walk 10 feet (QC): 4 Walk 50 ft with 2 Turns(QC): 4 Walk 150 ft (QC): 88 Walking 10ft/uneven surface-QC: 3 Gait Persons Needed: 1 Gait Assistive Device: FWW Wheelchair Training Does the Pt Use a Wheelchair?: Yes Wheel 50 ft with 2 turns (QC): 2 Wheel 150 ft (QC): 2 Type of Wheelchair: Manual Stair Training 1 Step (curb) (QC): 88 4 Steps (QC): 88 12 Steps (QC): 88 Balance Picking up an Object (QC): 88 (patient cannot do even with a milieu coordinator due to retropulsion when standing) ADL-Treatment Eating (QC): 3 Oral Hygiene (QC): 3 Shower/Bathe Self (QC): 1 Upper Body Dressing (QC): 2 Lower Body Dressing (QC): 2 On/Off Footwear (QC): 1 Toileting Hygiene (QC): 2 Toilet Transfer (QC): 3 Assessment/Plan Assessment and Plan Assess & Plan/Chief Complaint Assessment/Plan: Steroid induced myopathy Currently tapering off prednisone. Down to 20mg today Acute on Chronic renal failure s/p IVF Hypertensive Polymyalgia Rheumatica Chronic Bipolar Mood disorder with hx of don Hyperlipidemia Osteoarthritis Chronic anemia Hypercalcemia Generalized weakness DVT PPX: Lovenox, SCDs if pt can tolerate GI PPX: PPI 07/29/2022: Restart IVF this evening Monitor creat and calcium Very slow recovery expected 07/30/2022: Monitor closely IVF Monitor creat 07/31/2022: Monitor creat and calcium (1) Steroid myopathy (2) Generalized weakness Status: Acute (3) Polymyalgia rheumatica Status: Acute (4) Dehydration Status: Acute (5) Essential hypertension (6) Mixed hyperlipidemia (7) Stage III chronic kidney disease (8) Acute kidney injury superimposed on chronic kidney disease CHRIS TORREZ DO Jul 31, 2022 07:22
[2022-07-31] MEDS: polyethylene glycoL POWDER 17 GM (MIRALAX) PACK PO SCH ×2 (09:06→20:29)
[2022-07-31] MEDS: PANTOPRAZOLE 40 MG (PROTONIX) TAB PO SCH (09:11)
[2022-07-31] MEDS: VITAMIN D3 25 MCG (1,000 UNITS) TABLET PO SCH ×2 (09:11→20:28)
[2022-07-31] MEDS: FOLIC ACID 1 MG TAB PO SCH (09:11)
[2022-07-31] MEDS: SENNA W/DOCUSATE (SENOKOT S) TABLET PO SCH ×2 (09:11→20:28)
[2022-07-31] MEDS: CYANOCOBALAMIN 1,000 MCG (VITAMIN B-12) TABLET PO SCH (09:11)
[2022-07-31] MEDS: meTOprolol TARTRATE 25 MG (LOPRESSOR) TABLET PO SCH ×2 (09:11→20:28)
[2022-07-31] MEDS: DOCUSATE SODIUM 100 MG (COLACE) CAP PO SCH ×2 (09:11→20:29)
[2022-07-31] MEDS: BRIMONIDINE 0.15% OU SCH ×2 (09:20→20:30)
--- NOTE | 2022-07-31 10:10 | Physical Therapy Daily Note ---
PT Daily Note-Current Subjective Pt. and present. Pt states she realizes she has been confused at times. Asks questions about what services she will recieve home Pain Location: No Pain Reported Transfers SCALE: Activities may be completed with or without assistive devices. 9-Mdhflyyijq-gtobcmk completes the activity by him/herself with no assistance from a helper. 5-Set-up or Clean-up Assistance-helper sets up or cleans up; patient completes activity. [place] assists only prior to or following the activity. 4-Supervision or Touching Assistance-helper provides verbal cues and/or touching/steadying and/or contact guard assistance as patient completes activity. Assistance may be provided throughout the activity or intermittently. 3-Partial/Moderate Assistance-helper does LESS THAN HALF the effort. [place] lifts, holds or supports trunk or limbs, but provides less than half the effort. 2-Substantial/Maximal Assistance-helper does MORE THAN HALF the effort. [place] lifts or holds trunk or limbs and provides more than half the effort. 9-Litavsjmi-dsewbj does ALL the effort. Patient does none of the effort to complete the activity. Or, the assistance of 2 or more helpers is required for the patient to complete the activity. If activity was not attempted, code reason: 7-Patient Refused. 9-Not Applicable-not attempted and the patient did not perform the activity before the current illness, exacerbation or injury. 10-Not Attempted due to Environmental Limitations-(lack of equipment, weather restraints, etc.). 88-Not Attempted due to Medical Conditions or Safety Concerns. lift chair CGA, w/c mod to min assist, toilet min to CGA, better from higher surface Gait Training Does the Patient Walk?: Yes Gait Assistive Device: FWW 50ft x 3, 25 ft x 1, CGA, assist for IV and to steer FWW and cued to keep good position in FWW, slow, flexed over FWW Exercises Seated Therapy Exercises: Ankle pumps, Sit to stand, Long arc quads, Hip flexion, Hip abd/add Seated Reps: 10 Assessment Current Status: Good Progress PT Short Term Goals Short Term Goals Time Frame: Aug 04, 2022 Roll Left & Right: 3 (Nitesh) Sit to lyin (Ileana) Lying to sitting on side of be: 3 (Ileana) Sit to stand: 3 (Ileana) Chair/zsf-gl-jkuor transfer: 4 (CGA) Walk 10 feet: 4 (CGA) Walk 50 feet with two turns: 4 (CGA) PT Intermediate Goals Intermediate Goals PT Foil Stamp Operator Goals Time Frame: Aug 18, 2022 Roll Left & Right (QC): 4 (SBA) Sit to Lying (QC): 4 (SBA) Lying-Sitting on Side/Bed(QC): 4 (SBA) Sit to Stand (QC): 4 (SBA) Chair/Gxa-ty-Bgxwm Xfer(QC): 4 (BA) Toilet Transfer (QC): 4 (SBA) Car Transfer (QC): 4 (SBA) Does the Patient Walk: Yes Walk 10 feet (QC): 4 (SBA) Walk 50ft with 2 Turns (QC): 4 (SBA) Walk 150 ft (QC): 4 (SBA) Walking 10ft on Uneven Surface: 4 (SBA) 1 Step (curb) (QC): 4 (CGA) 4 Steps (QC): 4 (CGA) 12 Steps (QC): 88 Picking up an Object (QC): 4 (SBA using ep specialist) Wheel 50 feet with 2 turns (QC: 9 Wheel 150 feet: 9 PT Plan Treatment/Plan Treatment Plan: Continue Plan of Care Treatment Plan: Bed Mobility, Education, Functional Activity Jose, Functional Strength, Group Therapy, Gait, Safety, Therapeutic Exercise, Transfers Treatment Duration: Aug 04, 2022 Frequency: Modified Program (IRF) (04/06) Estimated Hrs Per Day: 1.5 hours per day Patient and/or Family Agrees t: Yes Safety Risks/Education Patient Education: Gait Training, Transfer Techniques, Correct Positioning, Disease Process, Safety Issues Teaching Recipient: Patient Teaching Methods: Demonstration, Discussion Response to Teaching: Verbalize Understanding, Return Demonstration, Reinforcement Needed Time/GCodes Time In: 935 Time Out: 1005 Total Billed Treatment Time: 30 Total Billed Treatment 1,FA15m,GT15m PIERRE GONZALES DECKER OPERATOR Jul 31, 2022 10:10
[2022-07-31 20:21] VITALS: BP 164/91
[2022-07-31] MEDS: predniSONE 20 MG TAB PO SCH (20:27)
[2022-07-31] MEDS: DIVALPROEX EXT RELEASE 250 MG (DEPAKOTE ER) TAB PO SCH (20:28)
[2022-07-31] MEDS: ENOXAPARIN INJECTION 30 MG/0.3 ML SYR SC SCH (20:28)
[2022-08-01] MEDS: 1/2 NS IV SOLUTION 1,000 ML IV SCH ×2 (05:42→15:54)
[2022-08-01 07:09] VITALS: BP 128/71
--- NOTE | 2022-08-01 07:57 | PM&R Progress Note ---
Subjective HPI/CC On Admission Date Seen by Provider: Aug 01, 2022 Time Seen by Provider: 12:00 Subjective/Events-last exam 08/01/2022: Doing better No pain reported Improved ambulation but slow Hypercalcemia continues IVF tolerated 07/31/2022: Doing better each day No pain reported Moving better Right lower leg wound appears dried up Eating ok IVF continue due to hypercalcemia from Vit D toxicity 07/30/2022: Pt is doing a lot better Midline placed Very weak IV fluids will continue Will monitor pt closely 07/29/2022: Doing a bit better Very weak Chronically ill No pain reported except muscles Eating a bit better BM+ Urination good Review of Systems General: Fatigue, Malaise Objective Exam Vital Signs Vital Signs Date Time Temp Pulse Resp B/P (MAP) Pulse Ox O2 Delivery O2 Flow Rate FiO2 08/01/22 09:45 36.3 82 95 21 08/01/22 09:29 Room Air 08/01/22 07:09 16 128/71 (90) 07/30/22 10:45 0.00 Capillary Refill : General Appearance: WD/WN, Anxious, Chronically ill, Mild Distress, Other (tremors noted, frail, pale, very debilitated) HEENT: PERRL/EOMI, Normal ENT Inspection, Pharynx Normal Neck: Full Range of Motion, Normal Inspection, Non Tender, Supple, Carotid Bruit Respiratory: Chest Non Tender, Lungs Clear, Normal Breath Sounds, No Accessory Muscle Use, No Respiratory Distress Cardiovascular: Regular Rate, Rhythm, No Edema, No Gallop, No JVD, No Murmur, Normal Peripheral Pulses Gastrointestinal: Normal Bowel Sounds, No Organomegaly, No Pulsatile Mass, Non Tender, Soft Back: Normal Inspection, No CVA Tenderness, No Vertebral Tenderness Extremity: Normal Capillary Refill, Normal Inspection, Normal Range of Motion, Non Tender, No Calf Tenderness, No Pedal Edema, Other (limited ROM all extr emities) Neurologic/Psychiatric: Alert, Oriented x3, sleep lab technologist II-XII Norm as Tested, Depressed Affect, Motor Weakness (severe weakness 3/5 all extremities and torso ROM) Skin: Normal Color, Warm/Dry Lymphatic: No Adenopathy Results/Procedures Lab Laboratory Tests 08/01/22 08:28 Patient resulted labs reviewed. FIM Transfers Therapy Code Descriptions/Definitions Functional [place] Measure: 0=Not Assessed/NA 4=Minimal Assistance 1=Total Assistance 5=Supervision or Setup 2=Maximal Assistance 6=Modified [place] 3=Moderate Assistance 7=Complete IndependenceSCALE: Activities may be completed with or without assistive devices. 4-Blymywwnht-lkxapac completes the activity by him/herself with no assistance from a helper. 5-Set-up or Clean-up Assistance-helper sets up or cleans up; patient completes activity. [place] assists only prior to or following the activity. 4-Supervision or Touching Assistance-helper provides verbal cues and/or touching/steadying and/or contact guard assistance as patient completes activity. Assistance may be provided throughout the activity or intermittently. 3-Partial/Moderate Assistance-helper does LESS THAN HALF the effort. [place] lifts, holds or supports trunk or limbs, but provides less than half the effort. 2-Substantial/Maximal Assistance-helper does MORE THAN HALF the effort. [place] lifts or holds trunk or limbs and provides more than half the effort. 4-Ysjcpzzow-awtevr does ALL the effort. Patient does none of the effort to complete the activity. Or, the assistance of 2 or more helpers is required for the patient to complete the activity. If activity was not attempted, code reason: 7-Patient Refused. 9-Not Applicable-not attempted and the patient did not perform the activity before the current illness, exacerbation or injury. 10-Not Attempted due to Environmental Limitations-(lack of equipment, weather restraints, etc.). 88-Not Attempted due to Medical Conditions or Safety Concerns. Roll Left to Right (QC): 4 Sit to Lying (QC): 2 Sit to Stand (QC): 4 Chair/Vkf-ea-Nohjn Xfer(QC): 4 Car Transfer (QC): 3 Gait Training Does the Patient Walk?: Yes Walk 10 feet (QC): 4 Walk 50 ft with 2 Turns(QC): 4 Walk 150 ft (QC): 88 Walking 10ft/uneven surface-QC: 3 Gait Persons Needed: 1 Gait Assistive Device: FWW Wheelchair Training Does the Pt Use a Wheelchair?: Yes Wheel 50 ft with 2 turns (QC): 2 Wheel 150 ft (QC): 2 Type of Wheelchair: Manual Stair Training 1 Step (curb) (QC): 88 4 Steps (QC): 88 12 Steps (QC): 88 Balance Picking up an Object (QC): 88 (patient cannot do even with a internet retailer due to r etropulsion when standing) ADL-Treatment Eating (QC): 3 Oral Hygiene (QC): 3 Shower/Bathe Self (QC): 1 Upper Body Dressing (QC): 2 Lower Body Dressing (QC): 2 On/Off Footwear (QC): 1 Toileting Hygiene (QC): 2 Toilet Transfer (QC): 3 Assessment/Plan Assessment and Plan Assess & Plan/Chief Complaint Assessment/Plan: Steroid induced myopathy Currently tapering off prednisone. Down to 20mg daily Acute on Chronic renal failure s/p IVF Hypertensive Polymyalgia Rheumatica Chronic Bipolar Mood disorder with hx of don Hyperlipidemia Osteoarthritis Chronic anemia Hypercalcemia Generalized weakness DVT PPX: Lovenox, SCDs if pt can tolerate GI PPX: PPI 07/29/2022: Restart IVF this evening Monitor creat and calcium Very slow recovery expected 07/30/2022: Monitor closely IVF Monitor creat 07/31/2022: Monitor creat and calcium 08/01/2022: Pamidronate Monitor labs (1) Steroid myopathy (2) Generalized weakness Status: Acute (3) Polymyalgia rheumatica Status: Acute (4) Dehydration Status: Acute (5) Essential hypertension (6) Mixed hyperlipidemia (7) Stage III chronic kidney disease (8) Acute kidney injury superimposed on chronic kidney disease CHRIS TORREZ DO Aug 01, 2022 07:57
[2022-08-01] MEDS: meTOprolol TARTRATE 25 MG (LOPRESSOR) TABLET PO SCH ×2 (08:25→20:20)
[2022-08-01] MEDS: VITAMIN D3 25 MCG (1,000 UNITS) TABLET PO SCH ×2 (08:25→20:16)
[2022-08-01] MEDS: DOCUSATE SODIUM 100 MG (COLACE) CAP PO SCH ×2 (08:25→20:19)
[2022-08-01] MEDS: PANTOPRAZOLE 40 MG (PROTONIX) TAB PO SCH (08:25)
[2022-08-01] MEDS: polyethylene glycoL POWDER 17 GM (MIRALAX) PACK PO SCH ×2 (08:25→20:20)
[2022-08-01] MEDS: BRIMONIDINE 0.15% OU SCH ×2 (08:25→20:18)
[2022-08-01] MEDS: SENNA W/DOCUSATE (SENOKOT S) TABLET PO SCH ×2 (08:25→20:20)
[2022-08-01] MEDS: CYANOCOBALAMIN 1,000 MCG (VITAMIN B-12) TABLET PO SCH (08:25)
[2022-08-01] MEDS: FOLIC ACID 1 MG TAB PO SCH (08:25)
[2022-08-01 08:45] LABS: ALBUMIN 3.2 GM/DL (3.2-4.5); POTASSIUM 4.3 MMOL/L (3.6-5.0)
[2022-08-01 08:46] LABS: CALCIUM 12.3 MG/DL (8.5-10.1)
[2022-08-01 08:48] LABS: TOTAL PROTEIN 5.6 GM/DL (6.4-8.2)
[2022-08-01 08:49] LABS: BILIRUBIN,TOTAL 0.6 MG/DL (0.1-1.0)
[2022-08-01 08:51] LABS: CREATININE SERUM 2.13 MG/DL (0.60-1.30)
[2022-08-01 09:45] VITALS: BP 143/88
[2022-08-01 20:02] VITALS: BP 103/51
[2022-08-01] MEDS: DIVALPROEX EXT RELEASE 250 MG (DEPAKOTE ER) TAB PO SCH (20:17)
[2022-08-01] MEDS: predniSONE 20 MG TAB PO SCH (20:17)
[2022-08-01] MEDS: ENOXAPARIN INJECTION 30 MG/0.3 ML SYR SC SCH (20:17)
[2022-08-02] MEDS: 1/2 NS IV SOLUTION 1,000 ML IV SCH (00:34)
[2022-08-02 06:01] LABS: BASOPHILS % (AUTO) 0 % (0-10); EOSINOPHILS % (AUTO) 0 % (0-10); HEMATOCRIT 24 % (35-52); LYMPHOCYTES # (AUTO) 0.7 10^3/uL (1.0-4.0); LYMPHOCYTES % (AUTO) 14 % (12-44); MEAN CORPUSCULAR HEMOGLOBIN 36 pg (25-34); MEAN CORPUSCULAR HGB CONC 34 g/dL (32-36); MEAN CORPUSCULAR VOLUME 106 fL (80-99); MEAN PLATELET VOLUME 11.8 fL (9.0-12.2); MONOCYTES % (AUTO) 1 % (0-12); NEUTROPHILS # (AUTO) 3.9 10^3/uL (1.8-7.8); NEUTROPHILS % (AUTO) 84 % (42-75); PLATELET COUNT 194 10^3/uL (130-400); WHITE BLOOD COUNT 4.7 10^3/uL (4.3-11.0)
[2022-08-02 06:02] LABS: SMEAR SCAN COMMENT YES
--- NOTE | 2022-08-02 06:04 | PM&R Progress Note ---
Subjective HPI/CC On Admission Date Seen by Provider: Aug 02, 2022 Time Seen by Provider: 09:00 Subjective/Events-last exam 08/02/2022: 08/01/2022: Doing better No pain reported Improved ambulation but slow Hypercalcemia continues IVF tolerated 07/31/2022: Doing better each day No pain reported Moving better Right lower leg wound appears dried up Eating ok IVF continue due to hypercalcemia from Vit D toxicity 07/30/2022: Pt is doing a lot better Midline placed Very weak IV fluids will continue Will monitor pt closely 07/29/2022: Doing a bit better Very weak Chronically ill No pain reported except muscles Eating a bit better BM+ Urination good Review of Systems General: Fatigue, Malaise Focused Exam Lactate Level 08/02/22 11:05: Lactic Acid Level 2.45*H Objective Exam Vital Signs Vital Signs Date Time Temp Pulse Resp B/P (MAP) Pulse Ox O2 Delivery O2 Flow Rate FiO2 08/02/22 12:33 82 122/78 (93) 08/02/22 11:20 Nasal Cannula 3.00 08/02/22 08:00 36.2 20 92 08/01/22 09:45 21 Capillary Refill : General Appearance: WD/WN, Anxious, Chronically ill, Mild Distress, Other (tremors noted, frail, pale, very debilitated) HEENT: PERRL/EOMI, Normal ENT Inspection, Pharynx Normal Neck: Full Range of Motion, Normal Inspection, Non Tender, Supple, Carotid Bruit Respiratory: Chest Non Tender, Lungs Clear, Normal Breath Sounds, No Accessory Muscle Use, No Respiratory Distress Cardiovascular: Regular Rate, Rhythm, No Edema, No Gallop, No JVD, No Murmur, Normal Peripheral Pulses Gastrointestinal: Normal Bowel Sounds, No Organomegaly, No Pulsatile Mass, Non Tender, Soft Back: Normal Inspection, No CVA Tenderness, No Vertebral Tenderness Extremity: Normal Capillary Refill, Normal Inspection, Normal Range of Motion, Non Tender, No Calf Tenderness, No Pedal Edema, Other (limited ROM all extremities) Neurologic/Psychiatric: Alert, Oriented x3, supervisor sample II-XII Norm as Tested, Depressed Affect, Motor Weakness (severe weakness 3/5 all extremities and torso ROM) Skin: Normal Color, Warm/Dry Lymphatic: No Adenopathy Results/Procedures Lab Patient resulted labs reviewed. FIM Transfers Therapy Code Descriptions/Definitions Functional [place] Measure: 0=Not Assessed/NA 4=Minimal Assistance 1=Total Assistance 5=Supervision or Setup 2=Maximal Assistance 6=Modified [place] 3=Moderate Assistance 7=Complete IndependenceSCALE: Activities may be completed with or without assistive devices. 8-Txwskndzll-pckzebh completes the activity by him/herself with no assistance from a helper. 5-Set-up or Clean-up Assistance-helper sets up or cleans up; patient completes activity. [place] assists only prior to or following the activity. 4-Supervision or Touching Assistance-helper provides verbal cues and/or touching/steadying and/or contact guard assistance as patient completes activity. Assistance may be provided throughout the activity or intermittently. 3-Partial/Moderate Assistance-helper does LESS THAN HALF the effort. [place] lifts, holds or supports trunk or limbs, but provides less than half the effort. 2-Substantial/Maximal Assistance-helper does MORE THAN HALF the effort. [place] lifts or holds trunk or limbs and provides more than half the effort. 6-Nqhpoibuh-tnbdks does ALL the effort. Patient does none of the effort to complete the activity. Or, the assistance of 2 or more helpers is required for the patient to complete the activity. If activity was not attempted, code reason: 7-Patient Refused. 9-Not Applicable-not attempted and the patient did not perform the activity before the current illness, exacerbation or injury. 10-Not Attempted due to Environmental Limitations-(lack of equipment, weather restraints, etc.). 88-Not Attempted due to Medical Conditions or Safety Concerns. Roll Left to Right (QC): 4 Sit to Lying (QC): 2 Sit to Stand (QC): 4 Chair/Zdd-su-Slhdk Xfer(QC): 4 Car Transfer (QC): 3 Gait Training Does the Patient Walk?: Yes Walk 10 feet (QC): 4 Walk 50 ft with 2 Turns(QC): 4 Walk 150 ft (QC): 88 Walking 10ft/uneven surface-QC: 3 Gait Persons Needed: 1 Gait Assistive Device: FWW Wheelchair Training Does the Pt Use a Wheelchair?: Yes Wheel 50 ft with 2 turns (QC): 2 Wheel 150 ft (QC): 2 Type of Wheelchair: Manual Stair Training 1 Step (curb) (QC): 88 4 Steps (QC): 88 12 Steps (QC): 88 Balance Picking up an Object (QC): 88 (patient cannot do even with a information security associate due to retropulsion when standing) ADL-Treatment Eating (QC): 3 Oral Hygiene (QC): 3 Shower/Bathe Self (QC): 1 Upper Body Dressing (QC): 2 Lower Body Dressing (QC): 2 On/Off Footwear (QC): 1 Toileting Hygiene (QC): 2 Toilet Transfer (QC): 3 Assessment/Plan Assessment and Plan Assess & Plan/Chief Complaint Assessment/Plan: Steroid induced myopathy Currently tapering off prednisone. Down to 20mg daily changed to 15mg today Acute on Chronic renal failure s/p IVF Hypertensive Polymyalgia Rheumatica Chronic Bipolar Mood disorder with hx of don Hyperlipidemia Osteoarthritis Chronic anemia Hypercalcemia Generalized weakness DVT PPX: Lovenox, SCDs if pt can tolerate GI PPX: PPI 07/29/2022: Restart IVF this evening Monitor creat and calcium Very slow recovery expected 07/30/2022: Monitor closely IVF Monitor creat 07/31/2022: Monitor creat and calcium 08/01/2022: Pamidronate Monitor labs 08/02/2022: (1) Steroid myopathy (2) Generalized weakness Status: Acute (3) Polymyalgia rheumatica Status: Acute (4) Dehydration Status: Acute (5) Essential hypertension (6) Mixed hyperlipidemia (7) Stage III chronic kidney disease (8) Acute kidney injury superimposed on chronic kidney disease CHRIS TORREZ DO Aug 02, 2022 06:04
[2022-08-02 06:09] LABS: ALBUMIN 2.7 GM/DL (3.2-4.5); BILIRUBIN,TOTAL 0.3 MG/DL (0.1-1.0); CALCIUM 11.1 MG/DL (8.5-10.1); CREATININE SERUM 2.18 MG/DL (0.60-1.30); POTASSIUM 4.5 MMOL/L (3.6-5.0); TOTAL PROTEIN 5.1 GM/DL (6.4-8.2)
[2022-08-02 08:00] VITALS: BP 143/72
[2022-08-02] MEDS: PANTOPRAZOLE 40 MG (PROTONIX) TAB PO SCH (08:31)
[2022-08-02] MEDS: CYANOCOBALAMIN 1,000 MCG (VITAMIN B-12) TABLET PO SCH (08:31)
[2022-08-02] MEDS: VITAMIN D3 25 MCG (1,000 UNITS) TABLET PO SCH (08:32)
[2022-08-02] MEDS: DOCUSATE SODIUM 100 MG (COLACE) CAP PO SCH (08:32)
[2022-08-02] MEDS: FOLIC ACID 1 MG TAB PO SCH (08:32)
[2022-08-02] MEDS: meTOprolol TARTRATE 25 MG (LOPRESSOR) TABLET PO SCH (08:32)
--- NOTE | 2022-08-02 08:32 | Occupational Ther Daily Note ---
OT Current Status-Daily Note Subjective Pt requires extensive amount of time for processing this date. "I'm pushing myself too much." Appearance Pt left sitting in w/c, family present to help patient with eating. Mental Status/Objective Patient Orientation: Person, Place Attachments: IV ADL-Treatment Therapy Code Descriptions/Definitions Functional [place] Measure: 0=Not Assessed/NA 4=Minimal Assistance 1=Total Assistance 5=Supervision or Setup 2=Maximal Assistance 6=Modified [place] 3=Moderate Assistance 7=Complete IndependenceSCALE: Activities may be completed with or without assistive devices. 6-Sglmfunody-ybtzgoc completes the activity by him/herself with no assistance from a helper. 5-Set-up or Clean-up Assistance-helper sets up or cleans up; patient completes activity. [place] assists only prior to or following the activity. 4-Supervision or Touching Assistance-helper provides verbal cues and/or touching/steadying and/or contact guard assistance as patient completes activity. Assistance may be provided throughout the activity or intermittently. 3-Partial/Moderate Assistance-helper does LESS THAN HALF the effort. [place] lifts, holds or supports trunk or limbs, but provides less than half the effort. 2-Substantial/Maximal Assistance-helper does MORE THAN HALF the effort. [place] lifts or holds trunk or limbs and provides more than half the effort. 5-Cgioivgcu-kgzeia does ALL the effort. Patient does none of the effort to complete the activity. Or, the assistance of 2 or more helpers is required for the patient to complete the activity. If activity was not attempted, code reason: 7-Patient Refused. 9-Not Applicable-not attempted and the patient did not perform the activity before the current illness, exacerbation or injury. 10-Not Attempted due to Environmental Limitations-(lack of equipment, weather restraints, etc.). 88-Not Attempted due to Medical Conditions or Safety Concerns. Eating (QC): 3 Shower/Bathe Self (QC): 2 Upper Body Dressing (QC): 2 Lower Body Dressing (QC): 2 On/Off Footwear: 1 Toileting Hygiene (QC): 2 Toilet Transfer (QC): 3 Pt sitting on toilet at OT arrival. She requests a shower but due to IV infusing, shower deferred at this time. RN and spouse reports that patient did take a shower on 08/01/22. Partial sponge bath completed seated in w/c. Significant time and cues to initiate washing upper body. Assist for thoroughness required secondary to limited pressure applied by patient. Dependent to wash buttocks this date due to needing BUE support. Pt appears to be very anxious about falling this date despite exhibiting no unsteadiness when standing. Cues for sequencing and physical assistance needed to thread BUE's through sleeves. Pt able to pull overhead with extra time/effort; assist to pull shirt down around torso. Attempt at using liquor maker to assist in Lb dressing. However, Due to poor sole stapler welt strength, tremors, and cognitive deficits, liquor maker is not recommended at this time. Thus, pt is dependent to thread bilateral feet through LB clothing. When standing, cue given to keep one hand on grab bar in order to have other assist in clothing management. Increased anxiety observed so OT performed clothing management for patient. Mod-max a to stand this date. Once upright, CGA for safety. Pt with heavy listing to the R this date. Cues/assist to come back to midline. Pillow placed in w/c to assist in positioning. Assist for set up of meal, family to help with feeding. Education OT Patient Education: Correct positioning, Energy conservation, Modified ADL techniques, Progress toward Goal/Update tx plan, Purpose of tx/functional activities, Rehab process, Safety issues, Transfer techniques, Use of adapted equipment, W/C management Teaching Recipient: Patient, Family Teaching Methods: Demonstration, Discussion Response to Teaching: Verbalize Understanding, Reinforcement Needed OT Short Term Goals Short Term Goals Time Frame: Aug 11, 2022 Eatin Oral hygiene: 4 Toileting hygiene: 3 Shower/bathe self: 2 Upper body dressin Lower body dressin Putting on/taking off footwear: 2 OT It Quality Analyst Goals Senior [facility] Goals Time Frame: Aug 20, 2022 Eating (QC): 4 Oral Hygiene (QC): 4 Toileting Hygiene (QC): 3 Shower/Bathe Self (QC): 3 Upper Body Dressing (QC): 3 Lower Body Dressing (QC): 3 On/Off Footwear (QC): 2 Additional Goals: 1-Demonstrate ADL Tasks, 2-Verbalize Understanding, 3- ImproveStrength/Jose 1=Demonstrate adherence to instructed precautions during ADL tasks. 2=Patient will verbalize/demonstrate understanding of assistive devices/modifications for ADL. 3=Patient will improve strength/tolerance for activity to enable patient to perform ADL's. OT Education/Plan Problem List/Assessment Assessment: Decreased Activ Tolerance, Decreased Safety Aware, Decreased UE Strength, Dependent Transfers, Impaired Cognition, Impaired Coordination, Impaired Funct Balance, Impaired Self-Care Skills, Restricted Funct UE ROM Discharge Recommendations Plan/Recommendations: Continue POC Therapy Discharge Recommendati: Assisted Living, Bath Aide, Homemaker Support, Post Acute OT Treatment Plan/Plan of Care Treatment,Training & Education: Yes Patient would benefit from OT for education, treatment and training to promote independence in ADL's, mobility, safety and/or upper extremity function for ADL's. Plan of Care: ADL Retraining, Caregiver Training, Cognitive Retraining, Functional Mobility, Group Exercise/Act as Ind, UE Funct Exercise/Act, UE Neuromus Re-Ed/Coord, W/C Management Training Treatment Duration: Aug 20, 2022 Frequency: At least 5 of 7 days/Wk (IRF) Estimated Hrs Per Day: 1.5 hours per day Agreement: Yes Rehab Potential: Guarded Time/GCodes Start Time: 07:30 Stop Time: 08:30 Total Time Billed (hr/min): 60 Billed Treatment Time 1 visit ADL x4 Kami Marcus OT Aug 02, 2022 08:32
[2022-08-02] MEDS: BRIMONIDINE 0.15% OU SCH (08:33)
[2022-08-02] MEDS: polyethylene glycoL POWDER 17 GM (MIRALAX) PACK PO SCH (09:04)
[2022-08-02] MEDS: SENNA W/DOCUSATE (SENOKOT S) TABLET PO SCH (09:04)
[2022-08-02] MEDS ORDERED: PAMIDRONATE INJECTION 60 MG in NS (IVPB) 250 ML IV ONE (10:00)
[2022-08-02] MEDS ORDERED: PAMIDRONATE 90 MG/10 ML (AREDIA) IV ONE (10:00)
--- NOTE | 2022-08-02 11:02 | Discharge Summary ---
Diagnosis/Chief Complaint Date of Admission Jul 28, 2022 at 13:00 Date of Discharge Discharge Date: Aug 02, 2022 Discharge Diagnosis Assessment/Plan: Sepsis due to PNA hospital acquired requiring transfer to acute care floor Steroid induced myopathy Currently tapering off prednisone. Down to 20mg daily Acute on Chronic renal failure s/p IVF Hypertensive Polymyalgia Rheumatica Chronic Bipolar Mood disorder with hx of don Hyperlipidemia Osteoarthritis Chronic anemia Hypercalcemia Generalized weakness DVT PPX: Lovenox, SCDs if pt can tolerate GI PPX: PPI 07/29/2022: Restart IVF this evening Monitor creat and calcium Very slow recovery expected 07/30/2022: Monitor closely IVF Monitor creat 07/31/2022: Monitor creat and calcium 08/01/2022: Pamidronate Monitor labs (1) Steroid myopathy (2) Generalized weakness Status: Acute (3) Polymyalgia rheumatica Status: Acute (4) Dehydration Status: Acute (5) Essential hypertension (6) Mixed hyperlipidemia (7) Stage III chronic kidney disease (8) Acute kidney injury superimposed on chronic kidney disease Discharge Summary Discharge Physical Examination Allergies: Coded Allergies: lorazepam (Verified Allergy, Mild, 12/25/19) allopurinol (Verified Allergy, Unknown, 07/24/22) cephalexin (Verified Allergy, Unknown, 12/25/19) clonazepam (Verified Allergy, Unknown, 07/24/22) enalaprilat (Verified Allergy, Unknown, 07/24/22) hydroxychloroquine (Verified Allergy, Unknown, 07/24/22) sulfamethoxazole (Verified Allergy, Unknown, Rash, 12/25/19) trimethoprim (Verified Allergy, Unknown, Rash, 12/25/19) Vitals & I&Os Vital Signs Date Time Temp Pulse Resp B/P (MAP) Pulse Ox O2 Delivery O2 Flow Rate FiO2 08/02/22 12:33 82 122/78 (93) 08/02/22 11:20 Nasal Cannula 3.00 08/02/22 08:00 36.2 20 92 08/01/22 09:45 21 General Appearance: Other (lethargic) Cardiovascular: Regular Rate Hospital Course Was the Problem List Reviewed?: Yes Lengthy course after she was admitted from 4th floor following severe weakness from steroid-induced myopathy. MTX maintained along with tapering of steroid. Hypercalcemia continued to be an issue requiring IVF and noted Vit D was 87. Patient was very slow in recovery and had difficulty with even the simplest of tasks from therapy and she was maintained on lower intensity therapy regimen but she continued to become weaker and then had an abrupt change of mentation to lethargy and hypoxia and sepsis w/u revealed PNA facility acquired so she was moved to 4th floor on [facility] and family updated. Patient has a very grave prognosis and maintained DNR status but appears to be a hospice candidate. Labs (last 24 hrs) Laboratory Tests 07/29/22 08:20: White Blood Count 7.3, Red Blood Count 3.12L, Hemoglobin 10.9L, Hematocrit 33L, Mean Corpuscular Volume 106H, Mean Corpuscular Hemoglobin 35H, Mean Corpuscular Hemoglobin Concent 33, Red Cell Distribution Width 16.7H, Platelet Count 207, Mean Platelet Volume 11.0, Immature Granulocyte % (Auto) 5, Neutrophils (%) (Auto) 76H, Lymphocytes (%) (Auto) 13, Monocytes (%) (Auto) 6, Eosinophils (%) (Auto) 0, Basophils (%) (Auto) 0, Neutrophils # (Auto) 5.6, Lymphocytes # (Auto) 1.0, Monocytes # (Auto) 0.4, Eosinophils # (Auto) 0.0, Basophils # (Auto) 0.0, Immature Granulocyte # (Auto) 0.4H, Sodium Level 143, Potassium Level 5.0, Chloride Level 108H, Carbon Dioxide Level 18L, Anion Gap 17H, Blood Urea Nitrogen 62H, Creatinine 2.05H, Estimat Glomerular Filtration Rate 25, BUN/Creatinine Ratio 30, Glucose Level 147H, Calcium Level 12.3H, Corrected Calcium 12.8H, Total Bilirubin 0.5, Aspartate Amino Transf (AST/SGOT) 30, Alanine Aminotransferase (ALT/SGPT) 46, Alkaline Phosphatase 51, Total Protein 6.4, Albumin 3.4 07/30/22 09:15: Sodium Level 139, Potassium Level 4.6, Chloride Level 105, Carbon Dioxide Level 17L, Anion Gap 17H, Blood Urea Nitrogen 61H, Creatinine 1.95H, Estimat Glomerula r Filtration Rate 27, BUN/Creatinine Ratio 31, Glucose Level 154H, Calcium Level 11.7H, Corrected Calcium 12.2H, Total Bilirubin 0.6, Aspartate Amino Transf (AST/SGOT) 32, Alanine Aminotransferase (ALT/SGPT) 46, Alkaline Phosphatase 54, Total Protein 6.0L, Albumin 3.4, Ionized Calcium (Measured) 1.49H, Ionized Calcium pH 7.40, Ionized Calcium (Corrected) 1.49H, Parathyroid Hormone (Intact) 11.8, Calcium (PTH Intact) 11.8H, Valproic Acid (Depakene) Level 66.4 08/01/22 08:28: Sodium Level 139, Potassium Level 4.3, Chloride Level 106, Carbon Dioxide Level 16L, Anion Gap 17H, Blood Urea Nitrogen 59H, Creatinine 2.13H, Estimat Glomerular Filtration Rate 24, BUN/Creatinine Ratio 28, Glucose Level 179H, Calcium Level 12.3H, Corrected Calcium 12.9H, Total Bilirubin 0.6, Aspartate Amino Transf (AST/SGOT) 35H, Alanine Aminotransferase (ALT/SGPT) 39, Alkaline Phosphatase 47, Total Protein 5.6L, Albumin 3.2 08/02/22 05:40: White Blood Count 4.7, Red Blood Count 2.23L, Hemoglobin 8.0#L, Hematocrit 24L, Mean Corpuscular Volume 106H, Mean Corpuscular Hemoglobin 36H, Mean Corpuscular Hemoglobin Concent 34, Red Cell Distribution Width 15.4H, Platelet Count 194, Mean Platelet Volume 11.8, Immature Granulocyte % (Auto) 1, Neutrophils (%) (Auto) 84H, Lymphocytes (%) (Auto) 14, Monocytes (%) (Auto) 1, Eosinophils (%) (Auto) 0, Basophils (%) (Auto) 0, Neutrophils # (Auto) 3.9, Lymphocytes # (Auto) 0.7L, Monocytes # (Auto) 0.0, Eosinophils # (Auto) 0.0, Basophils # (Auto) 0.0, Immature Granulocyte # (Auto) 0.1, Sodium Level 144, Potassium Level 4.5, Chloride Level 110H, Carbon Dioxide Level 21, Anion Gap 13, Blood Urea Nitrogen 56H, Creatinine 2.18H, Estimat Glomerular Filtration Rate 23, BUN/Creatinine Ratio 26, Glucose Level 109H, Calcium Level 11.1H, Corrected Calcium 12.1H, Total Bilirubin 0.3, Aspartate Amino Transf (AST/SGOT) 30, Alanine Aminotransferase (ALT/SGPT) 29, Alkaline Phosphatase 37L, Total Protein 5.1L, Albumin 2.7L, Smear Scan YES 08/02/22 11:05: Lactic Acid Level 2.45*H, Procalcitonin 0.43H 08/02/22 11:17: Urine Color YELLOW, Urine Clarity CLEAR, Urine pH 6.0, Urine Specific [place] 1.010L, Urine Protein NEGATIVE, Urine Glucose (UA) NEGATIVE, Urine Ketones NEGATIVE, Urine Nitrite NEGATIVE, Urine Bilirubin NEGATIVE, Urine Urobilinogen 0.2, Urine Leukocyte Esterase NEGATIVE, Urine RBC (Auto) NEGATIVE, Urine RBC NONE, Urine WBC NONE, Urine Crystals NONE, Urine Bacteria NEGATIVE, Urine Casts NONE, Urine Mucus NEGATIVE, Urine Culture Indicated NO Pending Labs Laboratory Tests 07/29/22 08:20: White Blood Count 7.3, Red Blood Count 3.12, Hemoglobin 10.9, Hematocrit 33, Mean Corpuscular Volume 106, Mean Corpuscular Hemoglobin 35, Mean Corpuscular Hemoglobin Concent 33, Red Cell Distribution Width 16.7, Platelet Count 207, Mean Platelet Volume 11.0, Immature Granulocyte % (Auto) 5, Neutrophils (%) (Auto) 76, Lymphocytes (%) (Auto) 13, Monocytes (%) (Auto) 6, Eosinophils (%) (Auto) 0, Basophils (%) (Auto) 0, Neutrophils # (Auto) 5.6, Lymphocytes # (Auto) 1.0, Monocytes # (Auto) 0.4, Eosinophils # (Auto) 0.0, Basophils # (Auto) 0.0, Immature Granulocyte # (Auto) 0.4, Sodium Level 143, Potassium Level 5.0, Chloride Level 108, Carbon Dioxide Level 18, Anion Gap 17, Blood Urea Nitrogen 62, Creatinine 2.05, Estimat Glomerular Filtration Rate 25, BUN/Creatinine Ratio 30, Glucose Level 147, Calcium Level 12.3, Corrected Calcium 12.8, Total Javid irubin 0.5, Aspartate Amino Transf (AST/SGOT) 30, Alanine Aminotransferase (ALT/SGPT) 46, Alkaline Phosphatase 51, Total Protein 6.4, Albumin 3.4 07/30/22 09:15: Sodium Level 139, Potassium Level 4.6, Chloride Level 105, Carbon Dioxide Level 17, Anion Gap 17, Blood Urea Nitrogen 61, Creatinine 1.95, Estimat Glomerular Filtration Rate 27, BUN/Creatinine Ratio 31, Glucose Level 154, Calcium Level 11.7, Corrected Calcium 12.2, Total Bilirubin 0.6, Aspartate Amino Transf (AST/SGOT) 32, Alanine Aminotransferase (ALT/SGPT) 46, Alkaline Phosphatase 54, Total Protein 6.0, Albumin 3.4, Ionized Calcium (Measured) 1.49, Ionized Calcium pH 7.40, Ionized Calcium (Corrected) 1.49, Parathyroid Hormone (Intact) 11.8, Calcium (PTH Intact) 11.8, Valproic Acid (Depakene) Level 66.4 08/01/22 08:28: Sodium Level 139, Potassium Level 4.3, Chloride Level 106, Carbon Dioxide Level 16, Anion Gap 17, Blood Urea Nitrogen 59, Creatinine 2.13, Estimat Glomerular Filtration Rate 24, BUN/Creatinine Ratio 28, Glucose Level 179, Calcium Level 12.3, Corrected Calcium 12.9, Total Bilirubin 0.6, Aspartate Amino Transf (AST/SGOT) 35, Alanine Aminotransferase (ALT/SGPT) 39, Alkaline Phosphatase 47, Total Protein 5.6, Albumin 3.2 08/02/22 05:40: White Blood Count 4.7, Red Blood Count 2.23, Hemoglobin 8.0, Hematocrit 24, Mean Corpuscular Volume 106, Mean Corpuscular Hemoglobin 36, Mean Corpuscular Hemoglobin Concent 34, Red Cell Distribution Width 15.4, Platelet Count 194, Mean Platelet Volume 11.8, Immature Granulocyte % (Auto) 1, Neutrophils (%) (Auto) 84, Lymphocytes (%) (Auto) 14, Monocytes (%) (Auto) 1, Eosinophils (%) (Auto) 0, Basophils (%) (Auto) 0, Neutrophils # (Auto) 3.9, Lymphocytes # (Auto) 0.7, Monocytes # (Auto) 0.0, Eosinophils # (Auto) 0.0, Basophils # (Auto) 0.0, Immature Granulocyte # (Auto) 0.1, Sodium Level 144, Potassium Level 4.5, Chloride Level 110, Carbon Dioxide Level 21, Anion Gap 13, Blood Urea Nitrogen 56, Creatinine 2.18, Estimat Glomerular Filtration Rate 23, BUN/Creatinine Ratio 26, Glucose Level 109, Calcium Level 11.1, Corrected Calcium 12.1, Total Bilirubin 0.3, Aspartate Amino Transf (AST/SGOT) 30, Alanine Aminotransferase (ALT/SGPT) 29, Alkaline Phosphatase 37, Total Protein 5.1, Albumin 2.7, Smear Scan YES 08/02/22 11:05: Lactic Acid Level 2.45, Procalcitonin 0.43 08/02/22 11:17: Urine Color YELLOW, Urine Clarity CLEAR, Urine pH 6.0, Urine Specific [place] 1.010, Urine Protein NEGATIVE, Urine Glucose (UA) NEGATIVE, Urine Ketones NEGATIVE, Urine Nitrite NEGATIVE, Urine Bilirubin NEGATIVE, Urine Urobilinogen 0.2, Urine Leukocyte Esterase NEGATIVE, Urine RBC (Auto) NEGATIVE, Urine RBC NONE, Urine WBC NONE, Urine Crystals NONE, Urine Bacteria NEGATIVE, Urine Casts NONE, Urine Mucus NEGATIVE, Urine Culture Indicated NO Discharge Home Medications: Active Scripts Active Divalproex Sodium ER (Divalproex Sodium) 250 Mg Tab.er.24h 750 Mg PO HS Prednisone 20 Mg Tab 20 Mg PO DAILY@2000 Pantoprazole Sodium 40 Mg Tablet.dr 40 Mg PO DAILY Hydralazine HCl 10 Mg Tablet 10 Mg PO TID Reported Tylenol (Acetaminophen) 325 Mg Tablet 650 Mg PO Q6H PRN Vitamin C (Ascorbic Acid) 1,000 Mg Tablet 1,000 Mg PO HS Culturelle (Lactobacillus Rhamnosus GG) 10 Billion Cell Capsule 1 Each PO BID Coq-10 (Ubidecarenone) 100 Mg Capsule 100 Mg PO DAILY Cetirizine HCl 10 Mg Tablet 10 Mg PO DAILY Alphagan P (Brimonidine Tartrate) 0.15 % Drops 1 Drop OP BID Vitamin D3 (Cholecalciferol (Vitamin D3)) 50 Mcg (2000 Unit) Tablet 50 Mcg PO BID Vitamin B-12 (Cyanocobalamin (Vitamin B-12)) 1,000 Mcg Capsule 1,000 Mcg PO DAILY Metoprolol Tartrate 25 Mg Tablet 25 Mg PO BID Glucosamine Chondroitin Tab (Gluc Conner/Chondro Conner A/Vit C/Mn) 750 Mg-600 Mg-55 Mg- 5 Mg Tablet 1 Each PO BID Folic Acid 1 Mg Tablet 1 Mg PO DAILY Methotrexate (Methotrexate Sodium) 2.5 Mg Tablet 10 Mg PO TUESDAY TAKES 4 (2.5MG) TABLETS ON TUESDAYS Ferosul (Ferrous Sulfate) 325 Mg (65 Mg Iron) Tablet 325 Mg PO HS Instructions to patient/family Please see electronic discharge instructions given to patient. Diagnosis/Problems Diagnosis/Problems (1) Steroid myopathy (2) Generalized weakness Status: Acute (3) Polymyalgia rheumatica Status: Acute (4) Dehydration Status: Acute (5) Essential hypertension (6) Mixed hyperlipidemia (7) Stage III chronic kidney disease (8) Acute kidney injury superimposed on chronic kidney disease CHRIS TORREZ DO Aug 02, 2022 11:02
--- NOTE | 2022-08-02 11:25 | Diagnostic Imaging Report ---
CLINICAL INDICATION: Patient with hypoxia. EXAM: Portable chest x-ray, upright view. COMPARISON: Chest x-ray dated 07/24/2022. FINDINGS: There is interval progression of diffuse patchy lung infiltrates with the left lung affected more than the right. There is no pleural effusion or pneumothorax. There is cardiomegaly. The pulmonary vasculature is obscured but appears within normal limits. IMPRESSION: Interval development of diffuse bilateral lung infiltrates which may represent pneumonia. Dictated by: Dictated on workstation # [id number]
[2022-08-02 11:26] LABS: BILIRUBIN,URINE NEGATIVE (NEGATIVE); CLARITY,URINE CLEAR; COLOR,URINE YELLOW; GLUCOSE, URINE (UA) NEGATIVE (NEGATIVE); KETONES,URINE NEGATIVE (NEGATIVE); LEUKOCYTE ESTERASE ,URINE NEGATIVE (NEGATIVE); NITRITE,URINE NEGATIVE (NEGATIVE); PROTEIN,URINE NEGATIVE (NEGATIVE)
--- NOTE | 2022-08-02 11:32 | Physical Therapy Progress Note ---
Therapy Progress Note Pt is laying Supine in bed upon arrival. Per Nurse, pt is anticipated to transfer to Med/Surg. Floor soon. Pt is demonstrating increased weakness and lethargy. No tx rendered. VINAY ERNST PTA Aug 02, 2022 11:32
[2022-08-02 11:36] LABS: BACTERIA,URINE NEGATIVE /HPF
[2022-08-02] MEDS ORDERED: NS IV 1000 ML 1,000 ML IV SCH (11:45)
[2022-08-02] MEDS ORDERED: PHARMACY TO DOSE IV SCH (12:00)
[2022-08-02] MEDS ORDERED: PIPERACILLIN SODIUM/TAZOBACTAM 4.5 GM in NS (IVPB) 100 ML IV NR (12:30)
[2022-08-02 12:33] VITALS: BP 122/78
--- NOTE | 2022-08-02 13:06 | Speech Therapy Progress Note ---
Therapy Progress Note Speech pathology arrived for scheduled cognitive linguistic treatment at 1000. Upon arrival, the patient was seated upright in her recliner sleeping. The patient woke minimally to maximum clinician verbal prompting. The patient would open her eyes and promptly return to sleep. At this time, the clinician retrieved the SpO2% monitoring system. Once applied, the patient's SpO2% ranged from 84% to 89% on room air. The clinician notified the patient's RN, who presented to the room for care. The patient was placed no 2L supplemental oxygen via nasal cannula with saturations reaching 92% SpO2%. Regardless of maximum verbal cueing, the patient was unable to complete skilled treatment. ST to reattempt as appropriate. No Charge (30 minutes) SARAH MALONE Aug 02, 2022 13:06
--- NOTE | 2022-08-02 13:07 | Therapy Team Discharge Summary ---
Therapy Discharge Summary Discharge Recommendations Date of Discharge Physical Therapy Roll Left to Right (QC): 4 Sit to Lying (QC): 2 Lying to Sitting/Side of Bed(Q: 5 (w HOB up) Sit to Stand (QC): 4 Chair/Hnd-ne-Kgojh Xfer(QC): 4 Toilet Transfer (QC): 2 Car Transfer (QC): 3 Does the Patient Walk: Yes Mode of Locomotion: Walk Anticipated Mode of Locomotion: Walk Walk 10 feet (QC): 4 Walk 50 ft with 2 Turns(QC): 4 Walk 150 ft (QC): 88 Walking 10ft on uneven surface: 3 Distance: 20', 15' Gait Assistive Device: FWW Does the Pt Use a Wheelchair: Yes Wheel 50 ft with 2 turns (QC): 2 Wheel 150 ft (QC): 2 Type of Wheelchair: Manual 1 Step (curb) (QC): 88 4 Steps (QC): 88 12 Steps (QC): 88 Balance Sitting Static: Fair Balance Sitting Dynamic: Fair Balance-Standing Static: Poor Picking up an Object (QC): 88 (patient cannot do even with a eap consultant due to retropulsion when standing) Occupational Therapy Decreased Activ Tolerance, Decreased Safety Aware, Decreased UE Strength, Dependent Transfers, Impaired Cognition, Impaired Coordination, Impaired Funct Balance, Impaired Self-Care Skills, Restricted Funct UE ROM Eating (QC): 3 Oral Hygiene (QC): 3 Shower/Bathe Self (QC): 2 Upper Body Dressing (QC): 2 Lower Body Dressing (QC): 2 On/Off Footwear (QC): 1 Toileting Hygiene (QC): 2 Speech-Language Pathology The patient was transferred from the acute rehabilitation unit to the acute floor for a higher level of care. At this time, the patient will be discharged from [facility] speech pathology services. PT Half-Way Goals Half-Way Goals PT Photographer Portrait Goals Time Frame: Aug 18, 2022 Roll Left to Right (QC): 4 (SBA) Sit to Lying (QC): 4 (SBA) Lying-Sitting on Side/Bed(QC): 4 (SBA) Sit to Stand (QC): 4 (SBA) Chair/Phk-yi-Dpgog Xfer(QC): 4 (BA) Car Transfer (QC): 4 (SBA) Does the Patient Walk: Yes Walk 10 feet (QC): 4 (SBA) Walk 10ft-Uneven Surface(QC): 4 (SBA) Walk 50ft with 2 Turns (QC): 4 (SBA) Walk 150 ft (QC): 4 (SBA) Wheel 50 feet with 2 turns (QC: 9 1 Step (curb) (QC): 4 (CGA) 4 Steps (QC): 4 (CGA) 12 Steps (QC): 88 Picking up an Object (QC): 4 (SBA using eap consultant) OT Half-Way Goals Half-Way Goals Time Frame: Aug 20, 2022 Eating (QC): 4 Oral Hygiene (QC): 4 Shower/Bathe Self (QC): 3 Upper Body Dressing (QC): 3 Lower Body Dressing (QC): 3 On/Off Footwear (QC): 2 Toileting Hygiene (QC): 3 Toilet/Commode Transfer (QC): 4 (SBA) Additional Goals: 1-Demonstrate ADL Tasks, 2-Verbalize Understanding, 3- ImproveStrength/Jose 1=Demonstrate adherence to instructed precautions during ADL tasks. 2=Patient will verbalize/demonstrate understanding of assistive devices/modifications for ADL. 3=Patient will improve strength/tolerance for activity to enable patient to perform ADL's. Speech Half-Way Goals Photographer Portrait Goals 1. The patient will demonstrate improved cognitive skills for safe discharge to the least restrictive environment. The patient was transferred from the acute rehabilitation unit to the acute floor for a higher level of care. At this time, the patient will be discharged from [facility] speech pathology services. Time Frame: Ten Days. SARAH MALONE Aug 02, 2022 13:07
[2022-08-02] MEDS ORDERED: PIPERACILLIN SODIUM/TAZOBACTAM 4.5 GM in NS (IVPB) 100 ML IV SCH (19:00)
[2022-08-02] MEDS ORDERED: predniSONE 5 MG TAB PO SCH (20:00)
--- NOTE | 2022-08-03 13:25 | Therapy Team Discharge Summary ---
Therapy Discharge Summary Discharge Recommendations Date of Discharge Aug 02, 2022 at 13:12 Physical Therapy Roll Left to Right (QC): 4 Sit to Lying (QC): 2 Lying to Sitting/Side of Bed(Q: 5 (w HOB up) Sit to Stand (QC): 4 Chair/Gys-dw-Apepk Xfer(QC): 4 Toilet Transfer (QC): 2 Car Transfer (QC): 3 Does the Patient Walk: Yes Mode of Locomotion: Walk Anticipated Mode of Locomotion: Walk Walk 10 feet (QC): 4 Walk 50 ft with 2 Turns(QC): 4 Walk 150 ft (QC): 88 Walking 10ft on uneven surface: 3 Distance: 20', 15' Gait Assistive Device: FWW Does the Pt Use a Wheelchair: Yes Wheel 50 ft with 2 turns (QC): 2 Wheel 150 ft (QC): 2 Type of Wheelchair: Manual 1 Step (curb) (QC): 88 4 Steps (QC): 88 12 Steps (QC): 88 Balance Sitting Static: Fair Balance Sitting Dynamic: Fair Balance-Standing Static: Poor Picking up an Object (QC): 88 (patient cannot do even with a care technician due to retropulsion when standing) Occupational Therapy Pt admitted to ARU with Polymyalgic Rheumatica, Steroid induced myopathy. At time of evaluation she was dependent for bathing and footwear, max a for toileting, UB dressing, and LB dressing, and mod a for oral care, and eating. During her rehab stay, OT focused on AE, compensatory strategies, safety, balance, endurance, strengthening, memory, sequencing, and energy conservation in order to improve performance and independence in adls and functional mobility. Pt did not meet any of her fci goals due to decline in medical status and transfer to a higher level of care. At this time, pt has discharged from ARU and will be discharged from OT at this time. Decreased Activ Tolerance, Decreased Safety Aware, Decreased UE Strength, Dependent Transfers, Impaired Cognition, Impaired Coordination, Impaired Funct Balance, Impaired Self-Care Skills, Restricted Funct UE ROM Eating (QC): 3 Oral Hygiene (QC): 3 Shower/Bathe Self (QC): 2 Upper Body Dressing (QC): 2 Lower Body Dressing (QC): 2 On/Off Footwear (QC): 1 Toileting Hygiene (QC): 2 PT Apple Thinner Goals Usp Goals PT Apple Thinner Goals Time Frame: Aug 18, 2022 Roll Left to Right (QC): 4 (SBA) Sit to Lying (QC): 4 (SBA) Lying-Sitting on Side/Bed(QC): 4 (SBA) Sit to Stand (QC): 4 (SBA) Chair/Jdx-xa-Kdmeq Xfer(QC): 4 (BA) Car Transfer (QC): 4 (SBA) Does the Patient Walk: Yes Walk 10 feet (QC): 4 (SBA) Walk 10ft-Uneven Surface(QC): 4 (SBA) Walk 50ft with 2 Turns (QC): 4 (SBA) Walk 150 ft (QC): 4 (SBA) Wheel 50 feet with 2 turns (QC: 9 1 Step (curb) (QC): 4 (CGA) 4 Steps (QC): 4 (CGA) 12 Steps (QC): 88 Picking up an Object (QC): 4 (SBA using care technician) OT Apple Thinner Goals Apple Thinner Goals Time Frame: Aug 20, 2022 Eating (QC): 4 (not met) Oral Hygiene (QC): 4 (not met) Shower/Bathe Self (QC): 3 (not met) Upper Body Dressing (QC): 3 (not met) Lower Body Dressing (QC): 3 (not met) On/Off Footwear (QC): 2 (not met) Toileting Hygiene (QC): 3 (not met) Toilet/Commode Transfer (QC): 4 (not met) Additional Goals: 1-Demonstrate ADL Tasks, 2-Verbalize Understanding, 3- ImproveStrength/Jose 1=Demonstrate adherence to instructed precautions during ADL tasks. 2=Patient will verbalize/demonstrate understanding of assistive jorge claudia/modifications for ADL. 3=Patient will improve strength/tolerance for activity to enable patient to perform ADL's. Speech Apple Thinner Goals Apple Thinner Goals 1. The patient will demonstrate improved cognitive skills for safe discharge to the least restrictive environment. The patient was transferred from the acute rehabilitation unit to the [facility] for a higher level of care. At this time, the patient will be discharged from [facility] speech pathology services. Time Frame: Ten Days. Kami Marcus OT Aug 03, 2022 13:24
--- NOTE | 2022-08-03 15:22 | Therapy Team Discharge Summary ---
Therapy Discharge Summary Discharge Recommendations Date of Discharge Aug 02, 2022 at 13:12 Physical Therapy Pt admitted to ARU with Polymyalgic Rheumatica, Steroid induced myopathy. At time of evaluation patient performs rolling and supine <-> sit with max assist, sit <-> stand mod assist, transfers min assist, car transfer mod assist. Patient needs cues for safety and hand placement almost every time. Patient is retropulsive upon standing and remains that way until she shifts her weight forward and starts walking. Pt only met one bartender server goal, lying to/sitting side of bed, due to decline in medical status and transfer to a higher level of care. At this time, pt has discharged from ARU and will be discharged from PT treatment and plan of care. Roll Left to Right (QC): 4 Sit to Lying (QC): 2 Lying to Sitting/Side of Bed(Q: 5 (w HOB up) Sit to Stand (QC): 4 Chair/Cik-dh-Xqruj Xfer(QC): 4 Toilet Transfer (QC): 2 Car Transfer (QC): 3 Does the Patient Walk: Yes Mode of Locomotion: Walk Anticipated Mode of Locomotion: Walk Walk 10 feet (QC): 4 Walk 50 ft with 2 Turns(QC): 4 Walk 150 ft (QC): 88 Walking 10ft on uneven surface: 3 Distance: 20', 15' Gait Assistive Device: FWW Does the Pt Use a Wheelchair: Yes Wheel 50 ft with 2 turns (QC): 2 Wheel 150 ft (QC): 2 Type of Wheelchair: Manual 1 Step (curb) (QC): 88 4 Steps (QC): 88 12 Steps (QC): 88 Balance Sitting Static: Fair Balance Sitting Dynamic: Fair Balance-Standing Static: Poor Picking up an Object (QC): 88 (patient cannot do even with a telemetry monitor due to retropulsion when standing) Occupational Therapy Decreased Activ Tolerance, Decreased Safety Aware, Decreased UE Strength, Dependent Transfers, Impaired Cognition, Impaired Coordination, Impaired Funct Balance, Impaired Self-Care Skills, Restricted Funct UE ROM Eating (QC): 3 Oral Hygiene (QC): 3 Shower/Bathe Self (QC): 2 Upper Body Dressing (QC): 2 Lower Body Dressing (QC): 2 On/Off Footwear (QC): 1 Toileting Hygiene (QC): 2 PT Halfway Goals Quenching Machine Operator Goals PT Quenching Machine Operator Goals Time Frame: Aug 18, 2022 Roll Left to Right (QC): 4 (SBA) Sit to Lying (QC): 4 (SBA) Lying-Sitting on Side/Bed(QC): 4 (SBA) Sit to Stand (QC): 4 (SBA) Chair/Zxp-ud-Cazop Xfer(QC): 4 (BA) Car Transfer (QC): 4 (SBA) Does the Patient Walk: Yes Walk 10 feet (QC): 4 (SBA) Walk 10ft-Uneven Surface(QC): 4 (SBA) Walk 50ft with 2 Turns (QC): 4 (SBA) Walk 150 ft (QC): 4 (SBA) Wheel 50 feet with 2 turns (QC: 9 1 Step (curb) (QC): 4 (CGA) 4 Steps (QC): 4 (CGA) 12 Steps (QC): 88 Picking up an Object (QC): 4 (SBA using telemetry monitor) OT Quenching Machine Operator Goals Halfway Goals Time Frame: Aug 20, 2022 Eating (QC): 4 (not met) Oral Hygiene (QC): 4 (not met) Shower/Bathe Self (QC): 3 (not met) Upper Body Dressing (QC): 3 (not met) Lower Body Dressing (QC): 3 (not met) On/Off Footwear (QC): 2 (not met) Toileting Hygiene (QC): 3 (not met) Toilet/Commode Transfer (QC): 4 (not met) Additional Goals: 1-Demonstrate ADL Tasks, 2-Verbalize Understanding, 3- ImproveStrength/Jose 1=Demonstrate adherence to instructed precautions during ADL tasks. 2=Patient will verbalize/demonstrate understanding of assistive devices/m odifications for ADL. 3=Patient will improve strength/tolerance for activity to enable patient to perform ADL's. Speech Quenching Machine Operator Goals Halfway Goals 1. The patient will demonstrate improved cognitive skills for safe discharge to the least restrictive environment. The patient was transferred from the acute rehabilitation unit to the acute floor for a higher level of care. At this time, the patient will be discharged from [facility] speech pathology services. Time Frame: Ten Days. GIRISH VELAZCO PT Aug 03, 2022 15:22
== END 2022-08-02 13:12 | disposition short-term general hospital (02) | DRG 91 ==
PROVIDERS: ADMIT Internal Medicine; ATTEND Internal Medicine
DX: G72.0 Drug-induced myopathy (principal); A41.9 Sepsis, unspecified organism; J18.9 Pneumonia, unspecified organism; N17.9 Acute kidney failure, unspecified; I12.9 Hypertensive chronic kidney disease with stage 1 through stage 4 chronic kidney disease, or unspecified chronic kidney disease; N18.30 Chronic kidney disease, stage 3 unspecified; M35.3 Polymyalgia rheumatica; F31.9 Bipolar disorder, unspecified; E78.2 Mixed hyperlipidemia; M19.91 Primary osteoarthritis, unspecified site; D64.9 Anemia, unspecified; I25.10 Atherosclerotic heart disease of native coronary artery without angina pectoris; E83.52 Hypercalcemia; Z79.52 Long term (current) use of systemic steroids; Z82.49 Family history of ischemic heart disease and other diseases of the circulatory system; T38.0X5D Adverse effect of glucocorticoids and synthetic analogues, subsequent encounter
CPT/HCPCS: 36410; 36415; 71045; 76937; 80053; 80164; 81000; 82330; 83605; 83970; 84145; 85025; 94760

== ENCOUNTER 2022-08-02 13:10 | Inpatient (IN) | payer MEDICARE, BC ==
[~2022-08-02] VITALS: Ht 167 cm; Wt 73.3 kg
[~2022-08-02 13:10] MED LIST changes: +PANT40TA52 PO
[2022-08-02] MEDS ORDERED: NS IV ONE (13:30)
[2022-08-02 13:39] VITALS: BP 112/69
[2022-08-02 14:25] LABS: BASOPHILS % (AUTO) 0 % (0-10); EOSINOPHILS % (AUTO) 0 % (0-10); HEMATOCRIT 26 % (35-52); HEMOGLOBIN 8.5 g/dL (11.5-16.0); LYMPHOCYTES # (AUTO) 1.2 X 10^3 (1.0-4.0); LYMPHOCYTES % (AUTO) 18 % (12-44); MEAN CORPUSCULAR HEMOGLOBIN 35 pg (25-34); MEAN CORPUSCULAR HGB CONC 33 g/dL (32-36); MEAN CORPUSCULAR VOLUME 107 fL (80-99); MEAN PLATELET VOLUME 11.7 fL (9.0-12.2); MONOCYTES # (AUTO) 0.1 X 10^3 (0.0-1.0); MONOCYTES % (AUTO) 1 % (0-12); NEUTROPHILS # (AUTO) 5.2 X 10^3 (1.8-7.8); NEUTROPHILS % (AUTO) 79 % (42-75); PLATELET COUNT 246 10^3/uL (130-400); WHITE BLOOD COUNT 6.6 10^3/uL (4.3-11.0)
[2022-08-02 14:39] LABS: ALBUMIN 3.1 GM/DL (3.2-4.5)
[2022-08-02 14:40] LABS: POTASSIUM 4.4 MMOL/L (3.6-5.0)
[2022-08-02 14:41] LABS: CALCIUM 12.2 MG/DL (8.5-10.1)
[2022-08-02 14:42] LABS: TOTAL PROTEIN 5.6 GM/DL (6.4-8.2)
[2022-08-02 14:44] LABS: BILIRUBIN,TOTAL 0.5 MG/DL (0.1-1.0)
[2022-08-02 14:46] LABS: CREATININE SERUM 2.29 MG/DL (0.60-1.30)
[2022-08-02] MEDS: NS IV 1000 ML 1,000 ML IV SCH (15:39)
[2022-08-02 16:14] VITALS: BP 114/66
--- NOTE | 2022-08-02 16:20 | History & Physical ---
History of Present Illness History of Present Illness Reason for visit/HPI Pt is a 71 y/o female who is well known to me from clinic. She was admitted to the hospital for acute adrenal crisis and chronic steroid mypoathy. She was being treated on inpatient rehab for her weakness and this weekend she developed a cough which progressed to the point that she was evaluated and found to be septic with pneumonia. Masha is worried that she caused this herself somehow. Date of Admission Aug 02, 2022 at 13:10 Date Seen by a Provider: Aug 02, 2022 Time Seen by a Provider: 15:45 Attending Physician Nam Womack MD Admitting Physician Admitting Physician: Nam Womack MD Attending Physician: Nam Womack MD Consult Allergies and Home Medications Allergies Coded Allergies: lorazepam (Verified Allergy, Mild, 12/25/19) allopurinol (Verified Allergy, Unknown, 07/24/22) cephalexin (Verified Allergy, Unknown, 12/25/19) clonazepam (Verified Allergy, Unknown, 07/24/22) enalaprilat (Verified Allergy, Unknown, 07/24/22) hydroxychloroquine (Verified Allergy, Unknown, 07/24/22) sulfamethoxazole (Verified Allergy, Unknown, Rash, 12/25/19) trimethoprim (Verified Allergy, Unknown, Rash, 12/25/19) Patient Home Medication List Home Medication List Reviewed: Yes Acetaminophen (Tylenol) 325 Mg Tablet, 650 MG PO Q6H PRN for PAIN-MILD (1-4), (Reported) Entered as Reported by: SHANELLE FREIRE on 07/27/221501 Last Action: Continued Ascorbic Acid (Vitamin C) 1,000 Mg Tablet, 1,000 MG PO HS, (Reported) Entered as Reported by: SHANELLE FREIRE on 07/27/221501 Last Action: Held Brimonidine Tartrate (Alphagan P) 0.15 % Drops, 1 DROP OP BID, (Reported) Entered as Reported by: SHANELLE FREIRE on 07/27/221501 Last Action: Converted Cetirizine HCl (Cetirizine HCl) 10 Mg Tablet, 10 MG PO DAILY, (Reported) Entered as Reported by: SHANELLE FREIRE on 07/27/221501 Last Action: Continued Cholecalciferol (Vitamin D3) (Vitamin D3) 50 Mcg (2000 Unit) Tablet, 50 MCG PO BID, (Reported) Entered as Reported by: Claudette Winters on 07/24/22 0808 Last Action: Reviewed Cyanocobalamin (Vitamin B-12) (Vitamin B-12) 1,000 Mcg Capsule, 1,000 MCG PO DAILY, (Reported) Entered as Reported by: Claudette Winters on 07/24/22 0807 Last Action: Reviewed Divalproex Sodium (Divalproex Sodium ER) 250 Mg Tab.er.24h, 750 MG PO HS Prescribed by: NAM WOMACK on 07/28/221157 Last Action: Continued Ferrous Sulfate (Ferosul) 325 Mg (65 Mg Iron) Tablet, 325 MG PO HS, (Reported) Entered as Reported by: DELONTE PATTEN on 07/24/22423 Last Action: Held Folic Acid (Folic Acid) 1 Mg Tablet, 1 MG PO DAILY, (Reported) Entered as Reported by: Claudette Winters on 07/24/2245 Last Action: Continued Gluc Conner/Chondro Conner A/Vit C/Mn (Glucosamine Chondroitin Tab) 750 Mg-600 Mg-55 Mg- 5 Mg Tablet, 1 EACH PO BID, (Reported) Entered as Reported by: Claudette Winters on 07/24/2246 Last Action: Reviewed Hydralazine HCl (Hydralazine HCl) 10 Mg Tablet, 10 MG PO TID Prescribed by: NAM WOMACK on 07/28/221157 Last Action: Continued Lactobacillus Rhamnosus GG (Culturelle) 10 Billion Cell Capsule, 1 EACH PO BID, (Reported) Entered as Reported by: SHANELLE FREIRE on 07/27/22 1502 Last Action: Reviewed Methotrexate Sodium (Methotrexate) 2.5 Mg Tablet, 10 MG PO TUESDAY, (Reported) Entered as Reported by: DELONTE PATTEN on 07/24/22423 Last Action: Held Metoprolol Tartrate (Metoprolol Tartrate) 25 Mg Tablet, 25 MG PO BID, (Reported) Entered as Reported by: Claudette Winters on 07/24/2247 Last Action: Continued Pantoprazole Sodium (Pantoprazole Sodium) 40 Mg Tablet.dr, 40 MG PO DAILY Prescribed by: NAM WOMACK on 07/28/221157 Last Action: Continued Prednisone (Prednisone) 20 Mg Tab, 20 MG PO DAILY@1999 Prescribed by: NAM WOMACK on 07/28/22 1158 Last Action: Continued Ubidecarenone (Coq-10) 100 Mg Capsule, 100 MG PO DAILY, (Reported) Entered as Reported by: SHANELLE FREIRE on 07/27/22 1502 Last Action: Held Discontinued Medications Acetaminophen (Acetaminophen ER) 650 Mg Tablet.er, 650 MG PO Q6H, (Reported) Discontinued Reason: Duplicate Order Entered as Reported by: Claudette Winters on 07/24/22 0803 Ascorbic Acid (Vitamin C) 1,000 Mg Tablet, 1,000 MG PO DAILY, (Reported) Discontinued Reason: Duplicate Order Entered as Reported by: Claudette Winters on 07/24/22 0807 Brimonidine Tartrate (Alphagan P) 0.15 % Drops, 2 DROP OP BID, (Reported) Discontinued Reason: Duplicate Order Entered as Reported by: Claudette Winters on 07/24/22 1747 Carboxymethylcellulos/Glycerin (Refresh Relieva 0.5-0.9% Drop) 0.5 %-0.9 % Drops, 1 DROP OP DAILY PRN, (Reported) Discontinued Reason: Duplicate Order Entered as Reported by: Claudette Winters on 07/24/22 1747 Cetirizine HCl (Cetirizine HCl) 10 Mg Tablet, 10 MG PO DAILY, (Reported) Discontinued Reason: Duplicate Order Entered as Reported by: Claudette Winters on 07/24/22 0743 Cyclobenzaprine HCl (Cyclobenzaprine HCl) 5 Mg Tablet, 5 MG PO BID PRN for MUSCLE SPASMS, (Reported) Discontinued Reason: Duplicate Order Entered as Reported by: SAMIR CARDONA on 06/15/21 1047 Divalproex Sodium (Divalproex Sodium) 500 Mg Tablet.dr, 1,000 MG PO HS, (Reported) Entered as Reported by: DELONTE PATTEN on 07/24/22 0424 Doxycycline Hyclate (Doxycycline Hyclate) 100 Mg Tablet, 100 MG PO BID, (Reported) Entered as Reported by: SHANELLE FREIRE on 07/27/22 1502 Lactobacillus Rhamnosus GG (Culturelle) 10 Billion Cell Capsule, 2 EACH PO DAILY Discontinued Reason: Duplicate Order Prescribed by: Claudette Winters on 07/24/22 0750 Mv-Mn/Folic Acid/Calcium/Vit K (Women's 50 Plus Multivit Tab) 1 Each Tablet, 1 EACH PO DAILY, (Reported) Entered as Reported by: SAMIR CARDONA on 06/15/21 1045 Omeprazole (Omeprazole) 40 Mg Capsule.dr, 40 MG PO BID, (Reported) Discontinued Reason: No Longer Taking Entered as Reported by: Claudette Winters on 07/24/22 0753 Prednisone (Prednisone) 5 Mg Tablet, 5 MG PO UD Discontinued Reason: Duplicate Order Prescribed by: Claudette Winters on 07/24/22 0803 Prednisone (Prednisone) 20 Mg Tab, 40 MG PO DAILY, (Reported) Entered as Reported by: SHANELLE FREIRE on 07/27/22 1502 Ubidecarenone (Coq-10) 100 Mg Capsule, 100 MG PO DAILY, (Reported) Discontinued Reason: Duplicate Order Entered as Reported by: Claudette Winters on 07/24/22 0743 Past Ionzdzk-Nfytjc-Ipcxvu Hx Patient Social History Marrital Status: Number of Children: 2 Number of living children: 2 Living Status: lives at home with spouse Employed/Student: retired Tobacco Use?: No Use of E-Cig and/or Vaping dev: No Substance use?: No Alcohol Use?: No Pt feels they are or have been: No Immunizations Up To Date First/Initial COVID19 Vaccinat: 2020 Second COVID19 Vaccination Jeff: JANUARY 2021 Tetanus Booster (TDap): Unknown Hepatitis A: No Hepatitis B: No Seasonal Allergies Seasonal Allergies: Yes Current Status Advance Directives: Yes Advance Directive Location: Home Communicates: Verbally Primary Language: Togolese Is interpretation needed?: No Implanted or Applied Medical D: None Past Medical History Surgeries: Breast, Eye Surgery, Hysterectomy, Renal Currently Using CPAP: No Currently Using BIPAP: No Coronary Artery Disease, Heart Murmur, High Cholesterol, Hypertension Sexually Transmitted Disease: No HIV/AIDS: No Renal Failure, UTI-Chronic Polyps Arthritis, Fractures Cataract Loss of Vision: Denies Hearing Impairment: Denies Anxiety, Bipolar, Depression Blood Disorders: No Family Medical History Reviewed and Corrections made Heart Disease, Hypertension Review of Systems Constitutional: No chills, No diaphoresis, No fever; malaise, weakness EENTM: No hoarseness, No throat pain Respiratory: cough; No dyspnea on exertion, No short of breath, No wheezing Cardiovascular: No chest pain, No palpitations Gastrointestinal: No abdominal pain; constipation; No diarrhea, No loss of appetite, No nausea, No vomiting Genitourinary: no symptoms reported Musculoskeletal: No back pain; muscle weakness Skin: change in color (bruising) Psychiatric/Neurological: Anxiety, Depressed, Emotional Problems (chronic bipolar mood disorder), Tremors, Weakness All Other Systems Reviewed Negative Unless Noted: Yes Physical Exam Vital Signs Vital Signs - First Documented 08/02/22 13:39 Temp 35.9 Pulse 107 Resp 21 B/P (MAP) 112/69 (83) Pulse Ox 94 O2 Delivery Nasal Cannula O2 Flow Rate 2.00 Capillary Refill : Height, Weight, BMI Height: 5'6.00" Weight: 150lbs. 0.0oz. [id number]; 26.28 BMI Method:Estimated General Appearance: No Apparent Distress, WD/WN HEENT: PERRL/EOMI, Pharynx Normal Neck: Full Range of Motion, Non Tender, Supple Respiratory: Chest Non Tender, Crackles (left lower lobe) Cardiovascular: Regular Rate, Rhythm, No Murmur, Normal Peripheral Pulses Gastrointestinal: Normal Bowel Sounds, Non Tender, Soft Rectal: Deferred Back: Normal Inspection Extremity: Pedal Edema (with bruising/ecchymosis of lower legs) Neurologic/Psychiatric: Alert, Oriented x3, Other (anxious) Skin: Warm/Dry, Ecchymosis (arms/legs) Assessment/Plan Assessment and Plan Sepsis with pneumonia Acute on Chronic renal failure Hypertensive Urgency Dehydration Polymyalgia Rheumatica Chronic Bipolar Mood disorder with hx of don Recent Urinary tract infection Osteoarthritis Chronic anemia Hypercalcemia Anemia of chronic disease Sepsis with pneumonia - pt on zosyn, fluids, monitor repeat cxr in morning tomorrow. - mat protocol, neb treatment, incentive spirometry, sputum cx pending. Acute on Chronic renal failure with Dehydration - pt has chronic stage 3 renal failure with creatinine usually in the 1.5 range. - hydrate, repeat labs in the morning Hypertension - - pt on metoprolol and hydralazine - continue with current regimen. Polymyalgia Rheumatica - hold methotrexate for now, monitor symptoms. Chronic Bipolar Mood disorder with hx of don - and current Elevated Depakote level - pt on depakote - check level in morning - last depakote level was in the 60's Osteoarthritis - tylenol PRN. Chronic anemia - monitor labs, anticipate a little decline in her hgb with hydration. Hypercalcemia - restart active hydration with iv fluids Generalized weakness - we will start therapy tomorrow. DVT prophylaxis with scd's - holding off on lovenox for right now gi prophyalxis with ppi therapy Admission Diagnosis Sepsis with pneumonia Acute on Chronic renal failure Hypertensive Urgency Dehydration Polymyalgia Rheumatica Chronic Bipolar Mood disorder with hx of don Recent Urinary tract infection Osteoarthritis Chronic anemia Hypercalcemia Anemia of chronic disease Admission Status: Inpatient Order (span 2 midnights) Reason for Inpatient Admission: inpt admission for iv antibiotics, breathing treatment, - pt will require at least 3 midnights in the hospital for treatment of infection. NAM WOMACK MD Aug 02, 2022 16:20
[2022-08-02] MEDS ORDERED: LACTULOSE SYRUP 10GM/15ML (ENULOSE) 30ML UDC PO PRN (16:30)
[2022-08-02] MEDS ORDERED: ONDANSETRON 4 MG (ZOFRAN) ORAL DISSOLVE TAB PO PRN (16:30)
[2022-08-02] MEDS ORDERED: diphenhydrAMINE 25 MG TAB (BENADRYL) PO PRN (16:30)
[2022-08-02] MEDS ORDERED: ACETAMINOPHEN 325 MG TABLET PO PRN (16:30)
[2022-08-02] MEDS ORDERED: RT-ALBUTEROL SULF 2.5 MG/3 ML PRE-MIX VIAL INH PRN (16:30)
[2022-08-02] MEDS ORDERED: SENNA W/DOCUSATE (SENOKOT S) TABLET PO PRN (16:30)
[2022-08-02] MEDS ORDERED: guaiFENesin/CODEINE (ROBITUSSIN AC) 10ML UDC PO PRN (16:30)
[2022-08-02] MEDS ORDERED: DOCUSATE SODIUM 100 MG (COLACE) CAP PO PRN (16:30)
[2022-08-02] MEDS ORDERED: MELATONIN 3 MG TABLET PO PRN (16:30)
[2022-08-02] MEDS ORDERED: BISACODYL 10 MG SUPP (DULCOLAX) PR PRN (16:30)
[2022-08-02] MEDS ORDERED: ARTIFICAL TEARS 0.4 ML UNIT DOSE (REFRESH PLUS) OU PRN (16:30)
[2022-08-02] MEDS ORDERED: REFRESH OPTIVE EYE OU PRN (17:00)
[2022-08-02] MEDS ORDERED: PATIENT MAY USE OWN MEDS, ALL MC SCH (17:00)
[2022-08-02] MEDS: PIPERACILLIN SODIUM/TAZOBACTAM 4.5 GM in NS (IVPB) 100 ML IV SCH (18:25)
[2022-08-02 19:50] VITALS: BP 168/89
[2022-08-02] MEDS ORDERED: predniSONE 20 MG TAB PO SCH (20:00)
[2022-08-02] MEDS: meTOprolol TARTRATE 25 MG (LOPRESSOR) TABLET PO SCH (20:37)
[2022-08-02] MEDS: BRIMONIDINE 0.15% OU SCH (20:37)
[2022-08-02] MEDS: DIVALPROEX EXT RELEASE 250 MG (DEPAKOTE ER) TAB PO SCH (20:37)
[2022-08-02] MEDS ORDERED: BRIMONIDINE 0.2% (ALPHAGAN) OPHTH SOLN 5 ML BTL OU SCH (21:00)
[2022-08-02 23:38] VITALS: BP 155/81
[2022-08-03] MEDS: NS IV 1000 ML 1,000 ML IV SCH ×4 (01:13→21:39)
[2022-08-03] MEDS: PIPERACILLIN SODIUM/TAZOBACTAM 4.5 GM in NS (IVPB) 100 ML IV SCH ×3 (03:11→18:18)
[2022-08-03 03:40] VITALS: BP 185/79
[2022-08-03 04:21] VITALS: BP 151/87
[2022-08-03 06:16] LABS: BASOPHILS % (AUTO) 0 % (0-10); EOSINOPHILS % (AUTO) 0 % (0-10); HEMATOCRIT 25 % (35-52); HEMOGLOBIN 8.2 g/dL (11.5-16.0); LYMPHOCYTES # (AUTO) 0.6 10^3/uL (1.0-4.0); LYMPHOCYTES % (AUTO) 11 % (12-44); MEAN CORPUSCULAR HEMOGLOBIN 36 pg (25-34); MEAN CORPUSCULAR HGB CONC 33 g/dL (32-36); MEAN CORPUSCULAR VOLUME 107 fL (80-99); MEAN PLATELET VOLUME 11.4 fL (9.0-12.2); MONOCYTES # (AUTO) 0.1 10^3/uL (0.0-1.0); MONOCYTES % (AUTO) 1 % (0-12); NEUTROPHILS # (AUTO) 4.5 10^3/uL (1.8-7.8); NEUTROPHILS % (AUTO) 86 % (42-75); PLATELET COUNT 245 10^3/uL (130-400); WHITE BLOOD COUNT 5.3 10^3/uL (4.3-11.0)
[2022-08-03 06:30] LABS: POTASSIUM 4.3 MMOL/L (3.6-5.0)
[2022-08-03 06:32] LABS: TOTAL PROTEIN 5.5 GM/DL (6.4-8.2)
[2022-08-03 06:34] LABS: BILIRUBIN,TOTAL 0.4 MG/DL (0.1-1.0)
[2022-08-03 06:36] LABS: CREATININE SERUM 2.32 MG/DL (0.60-1.30)
[2022-08-03 06:45] LABS: VALPROIC ACID 79.5 UG/ML (50.0-100.0)
[2022-08-03 07:20] VITALS: BP 145/94
--- NOTE | 2022-08-03 08:35 | Progress Note ---
Subjective Subjective Date Seen by Provider: Aug 03, 2022 Time Seen by Provider: 08:30 pt reports still feeling quite anxious. i got ahold of her psychiatrist yesterday evening she wanted to have renetta start on buspirone instead of other options, monitor bipolar symptoms closely Review of Systems General: No Chills; Fatigue, Malaise HEENT: No Head Aches Pulmonary: No Dyspnea; Cough Cardiovascular: No: Chest Pain, Palpitations Gastrointestinal: No: Nausea, Abdominal Pain Genitourinary: No Dysuria Neurological: Weakness; No: Confusion All Other Systems Reviewed All Other Systems Reviewed: Yes Objective Exam Vital Signs Vital Signs Date Time Temp Pulse Resp B/P (MAP) Pulse Ox O2 Delivery O2 Flow Rate FiO2 08/03/22 07:20 37.1 96 20 145/94 (111) 92 Nasal Cannula 4.00 08/03/22 05:00 36.8 08/03/22 04:25 94 Nasal Cannula 4.00 08/03/22 04:21 151/87 (108) Nasal Cannula 4.00 08/03/22 03:40 38.0 100 18 96 Nasal Cannula 6.00 08/02/22 23:38 37.1 97 18 155/81 (105) 92 Nasal Cannula 6.00 08/02/22 21:40 104 93 Nasal Cannula 6.00 08/02/22 20:40 92 Nasal Cannula 6.00 08/02/22 20:38 107 93 Nasal Cannula 6.00 08/02/22 19:50 37.3 20 168/89 (115) 08/02/22 16:14 36.3 104 19 114/66 (82) 93 Nasal Cannula 2.00 08/02/22 13:39 35.9 107 21 112/69 (83) 94 Nasal Cannula 2.00 I & O 08/03/22 07:00 Intake Total 3450 ml Output Total 2250 ml Balance 1200 ml General Appearance: No Apparent Distress, WD/WN HEENT: PERRL/EOMI, Pharynx Normal Neck: Full Range of Motion, Non Tender, Supple Respiratory: Chest Non Tender, Crackles (left lower lobe) Cardiovascular: Regular Rate, Rhythm, No Murmur, Normal Peripheral Pulses Gastrointestinal: Normal Bowel Sounds, Non Tender, Soft Rectal: Deferred Back: Normal Inspection Extremity: Pedal Edema (with bruising/ecchymosis of lower legs) Neurologic/Psychiatric: Alert, Oriented x3, Other (anxious) Skin: Warm/Dry, Ecchymosis (arms/legs) Results Lab Laboratory Tests 08/02/22 14:10: White Blood Count 6.6, Red Blood Count 2.41L, Hemoglobin 8.5L, Hematocrit 26L, Mean Corpuscular Volume 107H, Mean Corpuscular Hemoglobin 35H, Mean Corpuscular Hemoglobin Concent 33, Red Cell Distribution Width 15.7H, Platelet Count 246, Mean Platelet Volume 11.7, Immature Granulocyte % (Auto) 1, Neutrophils (%) (Aut o) 79H, Lymphocytes (%) (Auto) 18, Monocytes (%) (Auto) 1, Eosinophils (%) (Auto) 0, Basophils (%) (Auto) 0, Neutrophils # (Auto) 5.2, Lymphocytes # (Auto) 1.2, Monocytes # (Auto) 0.1, Eosinophils # (Auto) 0.0, Basophils # (Auto) 0.0, Immature Granulocyte # (Auto) 0.1, Sodium Level 139, Potassium Level 4.4, Chloride Level 105, Carbon Dioxide Level 22, Anion Gap 12, Blood Urea Nitrogen 58H, Creatinine 2.29H, Estimat Glomerular Filtration Rate 22, BUN/Creatinine Ratio 25, Glucose Level 107H, Lactic Acid Level 2.03*H, Calcium Level 12.2H, Corrected Calcium 12.9H, Total Bilirubin 0.5, Aspartate Amino Transf (AST/SGOT) 33, Alanine Aminotransferase (ALT/SGPT) 37, Alkaline Phosphatase 47, Total Protein 5.6L, Albumin 3.1L 08/02/22 14:19: Influenza Type A (RT-PCR) Not Detected, Influenza Type B (RT-PCR) Not Detected, SARS-CoV-2 RNA (RT-PCR) Not Detected 08/03/22 06:05: White Blood Count 5.3, Red Blood Count 2.31L, Hemoglobin 8.2L, Hematocrit 25L, Mean Corpuscular Volume 107H, Mean Corpuscular Hemoglobin 36H, Mean Corpuscular Hemoglobin Concent 33, Red Cell Distribution Width 15.1H, Platelet Count 245, Mean Platelet Volume 11.4, Immature Granulocyte % (Auto) 3, Neutrophils (%) (Auto) 86H, Lymphocytes (%) (Auto) 11L, Monocytes (%) (Auto) 1, Eosinophils (%) (Auto) 0, Basophils (%) (Auto) 0, Neutrophils # (Auto) 4.5, Lymphocytes # (Auto) 0.6L, Monocytes # (Auto) 0.1, Eosinophils # (Auto) 0.0, Basophils # (Auto) 0.0, Immature Granulocyte # (Auto) 0.1, Sodium Level 145, Potassium Level 4.3, Chloride Level 110H, Carbon Dioxide Level 19L, Anion Gap 16H, Blood Urea Nitrogen 52H, Creatinine 2.32H, Estimat Glomerular Filtration Rate 22, BUN/Creatinine Ratio 22, Glucose Level 118H, Calcium Level 12.0H, Corrected Calcium 12.8H, Total Bilirubin 0.4, Aspartate Amino Transf (AST/SGOT) 29, Alanine Aminotransferase (ALT/SGPT) 40, Alkaline Phosphatase 50, Total Protein 5.5L, Albumin 3.0L, Valproic Acid (Depakene) Level 79.5 Assessment/Plan Assessment/Plan Admission Dx Sepsis with pneumonia Acute on Chronic renal failure Hypertensive Urgency Dehydration Polymyalgia Rheumatica Chronic Bipolar Mood disorder with hx of don Recent Urinary tract infection Osteoarthritis Chronic anemia Hypercalcemia Anemia of chronic disease Assessment and Plan Sepsis with pneumonia Acute on Chronic renal failure Hypertensive Urgency Dehydration Polymyalgia Rheumatica Chronic Bipolar Mood disorder with hx of don Recent Urinary tract infection Osteoarthritis Chronic anemia Hypercalcemia Anemia of chronic disease Sepsis with pneumonia - pt on zosyn, fluids, monitor repeat cxr in morning tomorrow. - mat protocol, neb treatment, incentive spirometry, sputum cx pending. Acute on Chronic renal failure with Dehydration - pt has chronic stage 3 renal failure with creatinine usually in the 1.5 range. - hydrate, repeat labs in the morning Hypertension - - pt on metoprolol and hydralazine - continue with current regimen. Polymyalgia Rheumatica - hold methotrexate for now, monitor symptoms. Chronic Bipolar Mood disorder with hx of don - and current Elevated Depakote level - pt on depakote - level normalized Osteoarthritis - tylenol PRN. Chronic anemia - monitor labs, anticipate a little decline in her hgb with hydration. Hypercalcemia - restart active hydration with iv fluids Generalized weakness - we will start therapy tomorrow. DVT prophylaxis with scd's - holding off on lovenox for right now gi prophyalxis with ppi therapy Admission Dx Sepsis with pneumonia Acute on Chronic renal failure Hypertensive Urgency Dehydration Polymyalgia Rheumatica Chronic Bipolar Mood disorder with hx of don Recent Urinary tract infection Osteoarthritis Chronic anemia Hypercalcemia Anemia of chronic disease Clinical Quality Measures Admission Status Admission Dx Sepsis with pneumonia Acute on Chronic renal failure Hypertensive Urgency Dehydration Polymyalgia Rheumatica Chronic Bipolar Mood disorder with hx of don Recent Urinary tract infection Osteoarthritis Chronic anemia Hypercalcemia Anemia of chronic disease NAM JACQUES MD Aug 03, 2022 08:35
[2022-08-03] MEDS ORDERED: CETIRIZINE HCL (ZYRTEC) 10 MG TAB PO SCH (09:00)
[2022-08-03] MEDS ORDERED: VITAMIN D2 1.25 MG (50,000 UNITS) CAP PO SCH (09:00)
[2022-08-03] MEDS: LORATADINE (CLARITIN) 10 MG TAB PO SCH (09:19)
[2022-08-03] MEDS: PANTOPRAZOLE 40 MG (PROTONIX) TAB PO SCH (09:19)
[2022-08-03] MEDS: BRIMONIDINE 0.15% OU SCH ×2 (09:19→20:16)
[2022-08-03] MEDS: FOLIC ACID 1 MG TAB PO SCH (09:19)
[2022-08-03] MEDS: meTOprolol TARTRATE 25 MG (LOPRESSOR) TABLET PO SCH ×2 (09:19→20:15)
[2022-08-03] MEDS: busPIRone 5 MG (BUSPAR) TAB PO SCH ×2 (10:08→20:15)
[2022-08-03 11:21] VITALS: BP 142/82
--- NOTE | 2022-08-03 12:45 | Consultation ---
History of Present Illness History of Present Illness Patient Consulted On(jeff/time) 08/03/22 12:41 Time Seen by Provider: 12:41 Reason for Visit: ckd 4 History of Present Illness Mrs. Hernandez is a very pleasant 71 y/o WF with h/o HTN, bipolar d/o, polymalgia rheumatica, partial nephrectomy, anemia, and CKD 4 who was admitted with pneumonia complicated by acute adrenal crisis and chronic steroid mypoathy. Pt follows in our office. Last seen 03/2022 at which point her creatinine was at baseline of 2.18 likely due to hypertensive nephrosclerosis. Allergies and Home Medications Allergies Coded Allergies: lorazepam (Verified Allergy, Mild, 12/25/19) allopurinol (Verified Allergy, Unknown, 07/24/22) cephalexin (Verified Allergy, Unknown, 12/25/19) clonazepam (Verified Allergy, Unknown, 07/24/22) enalaprilat (Verified Allergy, Unknown, 07/24/22) hydroxychloroquine (Verified Allergy, Unknown, 07/24/22) sulfamethoxazole (Verified Allergy, Unknown, Rash, 12/25/19) trimethoprim (Verified Allergy, Unknown, Rash, 12/25/19) Patient Home Medication List Home Medication List Reviewed: Yes Acetaminophen (Tylenol) 325 Mg Tablet, 650 MG PO Q6H PRN for PAIN-MILD (1-4), (Reported) Entered as Reported by: SHANELLE FREIRE on 07/27/221501 Last Action: Continued Ascorbic Acid (Vitamin C) 1,000 Mg Tablet, 1,000 MG PO HS, (Reported) Entered as Reported by: SHANELLE FREIRE on 07/27/221501 Last Action: Held Brimonidine Tartrate (Alphagan P) 0.15 % Drops, 1 DROP OP BID, (Reported) Entered as Reported by: SHANELLE FREIRE on 07/27/221501 Last Action: Converted Cetirizine HCl (Cetirizine HCl) 10 Mg Tablet, 10 MG PO DAILY, (Reported) Entered as Reported by: SHANELLE FREIRE on 07/27/221501 Last Action: Continued Cholecalciferol (Vitamin D3) (Vitamin D3) 50 Mcg (2000 Unit) Tablet, 50 MCG PO BID, (Reported) Entered as Reported by: Claudette Winters on 07/24/22 0808 Last Action: Reviewed Cyanocobalamin (Vitamin B-12) (Vitamin B-12) 1,000 Mcg Capsule, 1,000 MCG PO DAILY, (Reported) Entered as Reported by: Claudette Winters on 07/24/22806 Last Action: Reviewed Divalproex Sodium (Divalproex Sodium ER) 250 Mg Tab.er.24h, 750 MG PO HS Prescribed by: NAM JACQUES on 07/28/221157 Last Action: Continued Ferrous Sulfate (Ferosul) 325 Mg (65 Mg Iron) Tablet, 325 MG PO HS, (Reported) Entered as Reported by: DELONTE PATTEN on 07/24/22423 Last Action: Held Folic Acid (Folic Acid) 1 Mg Tablet, 1 MG PO DAILY, (Reported) Entered as Reported by: Claudette Winters on 07/24/2245 Last Action: Continued Gluc Conner/Chondro Conner A/Vit C/Mn (Glucosamine Chondroitin Tab) 750 Mg-600 Mg-55 Mg- 5 Mg Tablet, 1 EACH PO BID, (Reported) Entered as Reported by: Claudette Winters on 07/24/2246 Last Action: Reviewed Hydralazine HCl (Hydralazine HCl) 10 Mg Tablet, 10 MG PO TID Prescribed by: NAM JACQUES on 07/28/221157 Last Action: Continued Lactobacillus Rhamnosus GG (Culturelle) 10 Billion Cell Capsule, 1 EACH PO BID, (Reported) Entered as Reported by: SHANELLE FREIRE on 07/27/22 1502 Last Action: Reviewed Methotrexate Sodium (Methotrexate) 2.5 Mg Tablet, 10 MG PO TUESDAY, (Reported) Entered as Reported by: DELONTE PATTEN on 07/24/22423 Last Action: Held Metoprolol Tartrate (Metoprolol Tartrate) 25 Mg Tablet, 25 MG PO BID, (Reported) Entered as Reported by: Claudette Winters on 07/24/2247 Last Action: Continued Pantoprazole Sodium (Pantoprazole Sodium) 40 Mg Tablet.dr, 40 MG PO DAILY Prescribed by: NAM JACQUES on 07/28/221157 Last Action: Continued Prednisone (Prednisone) 20 Mg Tab, 20 MG PO DAILY@1999 Prescribed by: NAM JACQUES on 07/28/221157 Last Action: Continued Ubidecarenone (Coq-10) 100 Mg Capsule, 100 MG PO DAILY, (Reported) Entered as Reported by: SHANELLE FREIRE on 07/27/22 1502 Last Action: Held Discontinued Medications Acetaminophen (Acetaminophen ER) 650 Mg Tablet.er, 650 MG PO Q6H, (Reported) Discontinued Reason: Duplicate Order Entered as Reported by: Claudette Winters on 07/24/22 0803 Ascorbic Acid (Vitamin C) 1,000 Mg Tablet, 1,000 MG PO DAILY, (Reported) Discontinued Reason: Duplicate Order Entered as Reported by: Claudette Winters on 07/24/22 0807 Brimonidine Tartrate (Alphagan P) 0.15 % Drops, 2 DROP OP BID, (Reported) Discontinued Reason: Duplicate Order Entered as Reported by: Claudette Winters on 07/24/22 1747 Carboxymethylcellulos/Glycerin (Refresh Relieva 0.5-0.9% Drop) 0.5 %-0.9 % Drops, 1 DROP OP DAILY PRN, (Reported) Discontinued Reason: Duplicate Order Entered as Reported by: Claudette Winters on 07/24/22 1747 Cetirizine HCl (Cetirizine HCl) 10 Mg Tablet, 10 MG PO DAILY, (Reported) Discontinued Reason: Duplicate Order Entered as Reported by: Claudette Winters on 07/24/22 0743 Cyclobenzaprine HCl (Cyclobenzaprine HCl) 5 Mg Tablet, 5 MG PO BID PRN for MUSCLE SPASMS, (Reported) Discontinued Reason: Duplicate Order Entered as Reported by: SAMIR CARDONA on 06/15/21 1047 Divalproex Sodium (Divalproex Sodium) 500 Mg Tablet.dr, 1,000 MG PO HS, (Reported) Entered as Reported by: DELONTE PATTEN on 07/24/22 0424 Doxycycline Hyclate (Doxycycline Hyclate) 100 Mg Tablet, 100 MG PO BID, (Reported) Entered as Reported by: SHANELLE FREIRE on 07/27/22 1502 Lactobacillus Rhamnosus GG (Culturelle) 10 Billion Cell Capsule, 2 EACH PO DAILY Discontinued Reason: Duplicate Order Prescribed by: Claudette Winters on 07/24/22 0750 Mv-Mn/Folic Acid/Calcium/Vit K (Women's 50 Plus Multivit Tab) 1 Each Tablet, 1 EACH PO DAILY, (Reported) Entered as Reported by: SAMIR CARDONA on 06/15/21 1045 Omeprazole (Omeprazole) 40 Mg Capsule.dr, 40 MG PO BID, (Reported) Discontinued Reason: No Longer Taking Entered as Reported by: Claudette Winters on 07/24/22 0753 Prednisone (Prednisone) 5 Mg Tablet, 5 MG PO UD Discontinued Reason: Duplicate Order Prescribed by: Claudette Winters on 07/24/22 0803 Prednisone (Prednisone) 20 Mg Tab, 40 MG PO DAILY, (Reported) Entered as Reported by: SHANELLE FREIRE on 07/27/22 1502 Ubidecarenone (Coq-10) 100 Mg Capsule, 100 MG PO DAILY, (Reported) Discontinued Reason: Duplicate Order Entered as Reported by: Claudette Winters on 07/24/22 0743 Past Mapzrnm-Gqherv-Esnabb Hx Patient Social History Tobacco Use?: No Use of E-Cig and/or Vaping dev: No Substance use?: No Alcohol Use?: No Pt feels they are or have been: No Immunizations Up To Date First/Initial COVID19 Vaccinat: 2020 Second COVID19 Vaccination Jeff: JANUARY 2021 Seasonal Allergies Seasonal Allergies: Yes Past Medical History Surgery/Hospitalization HX: Lumpectomy bilaterally Ortho surgery to remove heel spur Tumor removed from kidney T&A Hysterectomy Surgeries: Yes (cyst removed from kidney, breast bx x3) Breast, Eye Surgery, Hysterectomy, Renal Respiratory: No Currently Using CPAP: No Currently Using BIPAP: No Cardiac: Yes (murmur when younger NSTEMI 06/14/21-NO CATH) Coronary Artery Disease, Heart Murmur, High Cholesterol, Hypertension Neurological: No Reproductive Disorders: No Sexually Transmitted Disease: No HIV/AIDS: No Genitourinary: Yes (NO DIALYSIS, CHRONIC RENAL INSUFFICIENCY) Renal Failure, UTI-Chronic Gastrointestinal: Yes Polyps Musculoskeletal: Yes (HAD FX RIBS, BROKEN PELVIS IN 2001, POLYMYALGIA RHEUMATICA;CHRONIC GEN PAIN) Arthritis, Fractures Endocrine: No HEENT: Yes (cataracts removed) Cataract Loss of Vision: Denies Hearing Impairment: Denies Cancer: No Psychosocial: Yes (PSYCHOSIS-ADMITTED 2011) Anxiety, Bipolar, Depression Integumentary: Yes (EXTENSIVE BRUISING) Blood Disorders: No Family Medical History Reviewed and Corrections made Heart Disease, Hypertension Review of Systems-General Constitutional: see HPI Physical Exam-General Problems Physical Exam Vital Signs Vital Signs - First Documented 08/02/22 13:39 Temp 35.9 Pulse 107 Resp 21 B/P (MAP) 112/69 (83) Pulse Ox 94 O2 Delivery Nasal Cannula O2 Flow Rate 2.00 Capillary Refill : Assessment/Plan Assessment/Plan Admission Diagnosis/Plan CKD 4 with slight rise to 2.3 baseline 1.9-2.18 due to hypertensive nephrosclerosis cr near baseline monitor for HORTENSIA as pt is at risk continue saline give hyercalcemia pt has f/u appointment 08/19/22 at 11:40am with our office Hypercalemia will need to stop any use of vitamin d, tums, or calcium supplements should improve with volume expansion and stopping ergo and cholecalciferol met acidosis start po bicarb 650mg bid pneumonia on abx managed by primary adrenal crisis on steroids managed by primary check orthostatic bp LIA LIN MD Aug 03, 2022 12:45
[2022-08-03 15:49] VITALS: BP 157/87
[2022-08-03 19:03] VITALS: BP 139/78
[2022-08-03] MEDS ORDERED: predniSONE 5 MG TAB PO SCH (20:00)
[2022-08-03] MEDS: DIVALPROEX EXT RELEASE 250 MG (DEPAKOTE ER) TAB PO SCH (20:15)
[2022-08-04 00:05] VITALS: BP 126/63
[2022-08-04 03:13] VITALS: BP 128/60
[2022-08-04] MEDS: PIPERACILLIN SODIUM/TAZOBACTAM 4.5 GM in NS (IVPB) 100 ML IV SCH (03:14)
[2022-08-04 06:07] LABS: BASOPHILS % (AUTO) 0 % (0-10); EOSINOPHILS % (AUTO) 0 % (0-10); HEMATOCRIT 21 % (35-52); LYMPHOCYTES # (AUTO) 0.6 10^3/uL (1.0-4.0); LYMPHOCYTES % (AUTO) 18 % (12-44); MEAN CORPUSCULAR HEMOGLOBIN 35 pg (25-34); MEAN CORPUSCULAR HGB CONC 32 g/dL (32-36); MEAN CORPUSCULAR VOLUME 111 fL (80-99); MEAN PLATELET VOLUME 10.8 fL (9.0-12.2); MONOCYTES # (AUTO) 0.1 10^3/uL (0.0-1.0); MONOCYTES % (AUTO) 3 % (0-12); NEUTROPHILS # (AUTO) 2.3 10^3/uL (1.8-7.8); NEUTROPHILS % (AUTO) 74 % (42-75); PLATELET COUNT 186 10^3/uL (130-400); WHITE BLOOD COUNT 3.1 10^3/uL (4.3-11.0)
[2022-08-04 06:16] LABS: HEMOGLOBIN 6.5 g/dL (11.5-16.0)
[2022-08-04 06:17] LABS: SMEAR SCAN COMMENT YES
[2022-08-04 06:18] LABS: ALBUMIN 2.4 GM/DL (3.2-4.5)
[2022-08-04 06:20] LABS: CALCIUM 10.7 MG/DL (8.5-10.1)
[2022-08-04 06:21] LABS: TOTAL PROTEIN 4.4 GM/DL (6.4-8.2)
[2022-08-04 06:23] LABS: BILIRUBIN,TOTAL 0.3 MG/DL (0.1-1.0)
[2022-08-04 06:24] LABS: CREATININE SERUM 2.39 MG/DL (0.60-1.30)
[2022-08-04] MEDS ORDERED: NS IV 500 ML 500 ML IV SCH (06:45)
[2022-08-04] MEDS ORDERED: VITAMIN D3 10 MCG (400 UNITS) TABLET PO SCH (07:00)
[2022-08-04 07:20] VITALS: BP 128/60
[2022-08-04 08:16] VITALS: BP 126/64
[2022-08-04] MEDS: FOLIC ACID 1 MG TAB PO SCH (08:24)
[2022-08-04] MEDS: busPIRone 5 MG (BUSPAR) TAB PO SCH ×2 (08:24→19:42)
[2022-08-04] MEDS: meTOprolol TARTRATE 25 MG (LOPRESSOR) TABLET PO SCH ×2 (08:24→19:42)
[2022-08-04] MEDS: PANTOPRAZOLE 40 MG (PROTONIX) TAB PO SCH (08:24)
[2022-08-04] MEDS: BRIMONIDINE 0.15% OU SCH (08:24)
[2022-08-04] MEDS: LORATADINE (CLARITIN) 10 MG TAB PO SCH (08:24)
[2022-08-04] MEDS ORDERED: RT-ALBUTEROL SULF 2.5 MG/3 ML PRE-MIX VIAL INH SCH (09:00)
[2022-08-04] MEDS ORDERED: SALIVA STIMULANT MOUTH SPRAY (BIOTENE) 1.5 OZ MM PRN (09:00)
[2022-08-04] MEDS ORDERED: ONDANSETRON 4 MG/2 ML (SDV) Z0FRAN IVP PRN (09:00)
[2022-08-04] MEDS ORDERED: ARTIFICAL TEARS 0.4 ML UNIT DOSE (REFRESH PLUS) OU PRN (09:00)
[2022-08-04] MEDS ORDERED: ACETAMINOPHEN 650 MG SUPP (TYLENOL) PR PRN (09:00)
[2022-08-04] MEDS ORDERED: morphine (ROXINOL) 10 MG/0.5 ML oral conc 0.5 ML PO PRN (09:00)
[2022-08-04] MEDS ORDERED: GLYCOPYRROLATE 0.2 MG/ML (ROBINUL) 2 ML VIAL IV PRN (09:00)
[2022-08-04] MEDS ORDERED: PROMETHAZINE INJ 25 MG/ML (PHENERGAN) AMP IVP PRN (09:00)
--- NOTE | 2022-08-04 09:07 | Progress Note ---
Subjective Subjective Date Seen by Provider: Aug 04, 2022 Time Seen by Provider: 08:30 Pt is a 71 y/o female who has chronic renal failure, newly dx sepsis with pneumonia. Her hgb dropped this morning from 8.3 to 6.5. We were going to give her a transfusion, but her DTR reports that they would rather have Masha as comfort care. Masha also stated that she is tired, and does not want to keep fighting her body to get better and she wants to just be made comfortable. Review of Systems General: No Chills; Fatigue, Malaise HEENT: No Head Aches Pulmonary: No Dyspnea; Cough Cardiovascular: No: Chest Pain, Palpitations Gastrointestinal: No: Nausea, Abdominal Pain Genitourinary: No Dysuria; Incontinence Neurological: Weakness, Other (somnolence, long pauses in conversation, tearfullness, stating fatigue); No: Confusion All Other Systems Reviewed All Other Systems Reviewed: Yes Objective Exam Vital Signs Vital Signs Date Time Temp Pulse Resp B/P (MAP) Pulse Ox O2 Delivery O2 Flow Rate FiO2 08/04/22 08:16 36.6 95 20 126/64 (84) 94 Nasal Cannula 4.00 08/04/22 07:20 36.4 86 92 36 08/04/22 07:09 92 Nasal Cannula 4.00 08/04/22 03:13 36.4 86 20 128/60 (82) 97 Nasal Cannula 5.00 08/04/22 03:13 95 Nasal Cannula 4.00 08/04/22 00:50 37.1 08/04/22 00:50 37.1 08/04/22 00:16 39.0 08/04/22 00:05 39.0 98 18 126/63 (84) 91 Nasal Cannula 5.00 08/03/22 20:20 Nasal Cannula 4.00 08/03/22 19:03 36.7 100 18 139/78 (98) 95 Nasal Cannula 4.00 08/03/22 18:11 90 Nasal Cannula 4.00 08/03/22 16:41 Nasal Cannula 4.00 08/03/22 15:49 36.6 88 18 157/87 (110) 90 Nasal Cannula 4.00 08/03/22 11:21 36.6 75 18 142/82 (102) 97 Nasal Cannula 4.00 I & O 08/04/22 07:00 Intake Total 2820 ml Output Total 3375 ml Balance -555 ml General Appearance: Other (sleepy, fatigued) Respiratory: No Accessory Muscle Use, No Respiratory Distress Cardiovascular: Regular Rate, Rhythm Rectal: Deferred Neurologic/Psychiatric: Alert, Oriented x3, Other (groggy) Skin: Warm/Dry, Ecchymosis (arms/legs) Results Lab Laboratory Tests 08/04/22 05:55: White Blood Count 3.1L, Red Blood Count 1.84L, Hemoglobin 6.5#*L, Hematocrit 21L , Mean Corpuscular Volume 111H, Mean Corpuscular Hemoglobin 35H, Mean Corpuscular Hemoglobin Concent 32, Red Cell Distribution Width 16.0H, Platelet Count 186, Mean Platelet Volume 10.8, Immature Granulocyte % (Auto) 5, Neutrophils (%) (Auto) 74, Lymphocytes (%) (Auto) 18, Monocytes (%) (Auto) 3, Eosinophils (%) (Auto) 0, Basophils (%) (Auto) 0, Neutrophils # (Auto) 2.3, Lymphocytes # (Auto) 0.6L, Monocytes # (Auto) 0.1, Eosinophils # (Auto) 0.0, Basophils # (Auto) 0.0, Immature Granulocyte # (Auto) 0.2H, Sodium Level 149H, Potassium Level 4.0, Chloride Level 117H, Carbon Dioxide Level 20L, Anion Gap 12, Blood Urea Nitrogen 46H, Creatinine 2.39H, Estimat Glomerular Filtration Rate 21, BUN/Creatinine Ratio 19, Glucose Level 101, Calcium Level 10.7H, Corrected Calcium 12.0H, Total Bilirubin 0.3, Aspartate Amino Transf (AST/SGOT) 23, Alanine Aminotransferase (ALT/SGPT) 34, Alkaline Phosphatase 41, Total Protein 4.4L, Albumin 2.4L, Smear Scan YES Microbiology 08/02/22 MRSA Screen - Final, Complete MRSA not isolated 08/02/22 Blood Culture - Preliminary, Resulted No growth Assessment/Plan Assessment/Plan Admission Dx Sepsis with pneumonia Acute on Chronic renal failure Hypertensive Urgency Dehydration Polymyalgia Rheumatica Chronic Bipolar Mood disorder with hx of don Recent Urinary tract infection Osteoarthritis Chronic anemia Hypercalcemia Anemia of chronic disease Assessment and Plan Sepsis with pneumonia Acute on Chronic renal failure Hypertensive Urgency Dehydration Polymyalgia Rheumatica Chronic Bipolar Mood disorder with hx of don Recent Urinary tract infection Osteoarthritis Chronic anemia Hypercalcemia Anemia of chronic disease Masha and her family have decided that they want her to be comfort care only. They have requested cessation of fluids, antibiotics, and no blood products to be given. We will continue with midline care per protocol, but otherwise, will discontinue any fluids pushed through the IV, stop lab draws, stop oxygen delivery, and only provide medications and support from a comfort standpoint. Pt is wanting to be kept comfortable only at this time. Part of the comfort will be blood pressure control as long as she is able to take oral medications, once she can no longer take oral meds or she refuses, we will then discontinue her antihypertensive medications. Admission Dx Sepsis with pneumonia Acute on Chronic renal failure Hypertensive Urgency Dehydration Polymyalgia Rheumatica Chronic Bipolar Mood disorder with hx of don Recent Urinary tract infection Osteoarthritis Chronic anemia Hypercalcemia Anemia of chronic disease Clinical Quality Measures Admission Status Admission Dx Sepsis with pneumonia Acute on Chronic renal failure Hypertensive Urgency Dehydration Polymyalgia Rheumatica Chronic Bipolar Mood disorder with hx of don Recent Urinary tract infection Osteoarthritis Chronic anemia Hypercalcemia Anemia of chronic disease NAM JACQUES MD Aug 04, 2022 09:07
[2022-08-04] MEDS: morphine INJ 4 MG/ML 1 ML (VIAL/SYRINGE) IV PRN ×3 (10:11→22:25)
[2022-08-04] MEDS ORDERED: FUROSEMIDE 40 MG/4 ML INJ (LASIX) IVP NR (11:00)
[2022-08-04] MEDS ORDERED: RT-ALBUTEROL SULF 2.5 MG/3 ML PRE-MIX VIAL INH PRN (11:00)
[2022-08-04] MEDS ORDERED: PIPERACILLIN SODIUM/TAZOBACTAM 4.5 GM in NS (IVPB) 100 ML IV SCH (15:00)
[2022-08-04] MEDS: DIVALPROEX EXT RELEASE 250 MG (DEPAKOTE ER) TAB PO SCH (19:42)
--- NOTE | 2022-08-05 08:26 | Discharge Summary ---
Discharge Summary Date of Admission Aug 02, 2022 at 13:10 Date of Discharge 08/05/22 Discharge Date: Aug 05, 2022 Admission Diagnosis Sepsis with pneumonia Acute on Chronic renal failure Hypertensive Urgency Dehydration Polymyalgia Rheumatica Chronic Bipolar Mood disorder with hx of don Recent Urinary tract infection Osteoarthritis Chronic anemia Hypercalcemia Anemia of chronic disease Consults/Procedures Consulations NEPHROLOGY Comfort Measures/ End of Life Care: Comfort Measures Advance Care discuss with: patient, family member (s) ( (HAYLEY), DTR (TATY), SON (FATHER MADIE)) Plan: identified end-of-life goals Cardiopulmonary Arrest: Cardiorespiratory Arrest Date of : Aug 05, 2022 Discharge Diagnosis Cardiorespiratory arrest Sepsis with pneumonia Acute on Chronic renal failure Hypertensive Urgency Dehydration Polymyalgia Rheumatica Chronic Bipolar Mood disorder with hx of don Recent Urinary tract infection Osteoarthritis Chronic anemia Hypercalcemia Anemia of chronic disease NAM JACQUES MD Aug 05, 2022 08:26
== END 2022-08-05 10:05 | disposition expired | DRG 871 ==
LOC: 4TH 13:10
PROVIDERS: ADMIT Family Medicine; ATTEND Family Medicine
DX: A41.9 Sepsis, unspecified organism (principal); J18.9 Pneumonia, unspecified organism; N17.9 Acute kidney failure, unspecified; N18.4 Chronic kidney disease, stage 4 (severe); G72.0 Drug-induced myopathy; E27.2 Addisonian crisis; E87.2 Acidosis; I16.0 Hypertensive urgency; Z66 Do not resuscitate; Z51.5 Encounter for palliative care; E86.0 Dehydration; M35.3 Polymyalgia rheumatica; F31.9 Bipolar disorder, unspecified; M19.90 Unspecified osteoarthritis, unspecified site; D63.1 Anemia in chronic kidney disease; E83.52 Hypercalcemia; I46.9 Cardiac arrest, cause unspecified; I12.9 Hypertensive chronic kidney disease with stage 1 through stage 4 chronic kidney disease, or unspecified chronic kidney disease; Z90.5 Acquired absence of kidney; T38.0X5A Adverse effect of glucocorticoids and synthetic analogues, initial encounter; Z85.3 Personal history of malignant neoplasm of breast; I25.10 Atherosclerotic heart disease of native coronary artery without angina pectoris; E78.00 Pure hypercholesterolemia, unspecified; F41.9 Anxiety disorder, unspecified; Z20.822 Contact with and (suspected) exposure to COVID-19
CPT/HCPCS: 36415; 80053; 80164; 83605; 85025; 86850; 86900; 86901; 86920; 87040; 87081; 87636; 94760